=== PATIENT | female | born 1960 | race Caucasian/White ===

== ENCOUNTER 2017-03-13 09:26 | Emergency (ER) | payer OTHER ==
[2017-03-13] MEDS ORDERED: SODIUM CHLORIDE 0.9% 500 ML IV ONE (09:37)
--- NOTE | 2017-03-13 09:50 | ED ---
General Adult HPI - General Chief complaint: Seizure Stated complaint: Seizure Time Seen by Provider: 03/13/17 09:26 Source: EMS, RN notes reviewed Mode of arrival: EMS Limitations: altered mental status - History of Present Illness Initial comments: This is a 56-year-old female presents to the emergency department from [facility] with a history of seizures. Patient normally gets Her at 7:00 this morning she did not she started seizing at 7:30 no intervention was taken place until he called EMS at which point in time they gave some Versed according to EMS she had 8-9 seizures but never coming back to her baseline. After 2.5 of Versed the patient's seizure stopped and she is becoming more and more alert and oriented. Currently patient knows her name and is able to follow simple commands. There is no other history of any problems with this patient given TMS or to us via the phone call from the [facility]. Patient is unable to give us any history. - Related Data Home Medications Medication Instructions Recorded Confirmed Aspirin 325 mg PO HS 05/21/16 03/13/17 Levothyroxine Sodium [Synthroid] 100 mcg PO DAILY 05/21/16 03/13/17 Magnesium Oxide [Mag-Ox] 400 mg PO BID 05/21/16 03/13/17 Thiamine [Vitamin B-1] 100 mg PO HS 05/21/16 03/13/17 Verapamil HCl [Verapamil ER] 120 mg PO DAILY 06/17/16 03/13/17 Acetaminophen Tab [Tylenol Tab] 650 mg PO Q4H PRN 03/13/17 03/13/17 Bisacodyl 10 mg RECTAL DAILY PRN 03/13/17 03/13/17 Citalopram Hydrobromide [CeleXA] 40 mg PO DAILY 03/13/17 03/13/17 Nystatin 100,000Unit/gm Cream 1 applic TOPICAL BID PRN 03/13/17 03/13/17 [Mycostatin Cream] OLANZapine [ZyPREXA] 20 mg PO HS 03/13/17 03/13/17 Ranitidine HCl [Zantac] 150 mg PO BID 03/13/17 03/13/17 Previous Rx's Medication Instructions Recorded levETIRAcetam [Keppra] 500 mg PO BID #60 tab 06/18/16 Allergies Allergy/AdvReac Type Severity Reaction Status Date / Time No Known Allergies Allergy Verified 03/13/17 09:44 Review of Systems ROS Statement: Those systems with pertinent positive or pertinent negative responses have been documented in the HPI. ROS Other: All systems not noted in ROS Statement are negative. 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 Patient is nontoxic and well- hydrated and is in no acute distress. ENT: Neck is soft and supple. No significant lymphadenopathy is noted. Oropharynx is clear. Moist mucous membranes. Neck has full range of motion without eliciting any pain. EYES: The sclera were anicteric and conjunctiva were pink and moist. Extraocular movements were intact and pupils were equal round and reactive to light. Eyelids were unremarkable. PULMONARY: Unlabored respirations. Good breath sounds bilaterally. No audible rales rhonchi or wheezing was noted. CARDIOVASCULAR: There is a regular rate and rhythm without any murmurs gallops or rubs. ABDOMEN: Soft and nontender with normal bowel sounds. No palpable organomegaly was noted. There is no palpable pulsatile mass. SKIN: Skin is clear with no lesions or rashes and otherwise unremarkable. NEUROLOGIC: Patient is alert and oriented 1 Cranial nerves II through XII are grossly intact. MUSCULOSKELETAL: Normal extremities with adequate strength and full range of motion. No lower extremity swelling or edema. No calf tenderness. LYMPHATICS: No significant lymphadenopathy is noted Limitations: altered mental status Course Vital Signs 03/13/17 03/13/17 09:30 10:40 Temperature 98.6 F Pulse Rate 89 83 Respiratory 18 20 Rate Blood Pressure 121/68 140/70 O2 Sat by Pulse 91 L 91 L Oximetry Medical Decision Making - Medical Decision Making EKG shows a normal sinus rhythm at 97 bpm NC interval is 146 QRS is 84 Q-T intervals 354 QTC is 449. Patient's EKG shows no ST segment elevation or depression or T-wave abnormalities Patient has been seizure-free in the emergency department. And she is back to her baseline at this time. Since they did not give her her Keppra at this nursing facility at 7:00 this morning psychiatric for thousand milligrams of Keppra here. Patient is at her neurologic baseline is answering questions normally. - Lab Data Result diagrams: 03/13/17 10:30 03/13/17 10:00 Lab Results 03/13/17 03/13/17 03/13/17 Range/Units 09:32 10:00 10:00 WBC (3.8-10.6) k/uL RBC (3.80-5.40) m/uL Hgb (11.4-16.0) gm/dL Hct (34.0-46.0) % MCV (80.0-100.0) fL MCH (25.0-35.0) pg MCHC (31.0-37.0) g/dL RDW (11.5-15.5) % Plt Count (150-450) k/uL Neutrophils % % Lymphocytes % % Monocytes % % Eosinophils % % Basophils % % Neutrophils # (1.3-7.7) k/uL Lymphocytes # (1.0-4.8) k/uL Monocytes # (0-1.0) k/uL Eosinophils # (0-0.7) k/uL Basophils # (0-0.2) k/uL PT (9.0-12.0) sec INR (<1.1) APTT (22.0-30.0) sec Sodium 143 (137-145) mmol/L Potassium 4.2 (3.5-5.1) mmol/L Chloride 107 (98-107) mmol/L Carbon Dioxide 17 L (22-30) mmol/L Anion Gap 19 mmol/L BUN 9 (7-17) mg/dL Creatinine 0.82 (0.52-1.04) mg/dL Est GFR (MDRD) Af Amer >60 (>60 ml/min/1.73 sqM) Est GFR (MDRD) Non-Af >60 (>60 ml/min/1.73 sqM) Glucose 104 H (74-99) mg/dL POC Glucose (mg/dL) 112 H (75-99) mg/dL POC Glu Security Auditor ID Minoo Bui Calcium 9.5 (8.4-10.2) mg/dL Magnesium 2.0 (1.6-2.3) mg/dL Total Bilirubin 0.5 (0.2-1.3) mg/dL AST 20 (14-36) U/L ALT 19 (9-52) U/L Alkaline Phosphatase 83 (38-126) U/L Ammonia (<30) umol/L Total Creatine Kinase 50 (30-135) U/L CK-MB (CK-2) 0.6 (0.0-2.4) ng/mL CK-MB (CK-2) Rel Index 1.2 Troponin I <0.012 (0.000-0.034) ng/mL Total Protein 7.1 (6.3-8.2) g/dL Albumin 4.1 (3.5-5.0) g/dL Urine Color Urine Appearance (Clear) Urine pH (5.0-8.0) Ur Specific [place] (1.001-1.035) Urine Protein (Negative) Urine Glucose (UA) (Negative) Urine Ketones (Negative) Urine Blood (Negative) Urine Nitrite (Negative) Urine Bilirubin (Negative) Urine Urobilinogen (<2.0) mg/dL Ur Leukocyte Esterase (Negative) Urine Opiates Screen (NotDetected) Ur Oxycodone Screen (NotDetected) Urine Methadone Screen (NotDetected) Ur Propoxyphene Screen (NotDetected) Ur Barbiturates Screen (NotDetected) U Tricyclic Antidepress (NotDetected) Ur Phencyclidine Scrn (NotDetected) Ur Amphetamines Screen (NotDetected) U Methamphetamines Scrn (NotDetected) U Benzodiazepines Scrn (NotDetected) Urine Cocaine Screen (NotDetected) U Marijuana (THC) Screen (NotDetected) 03/13/17 03/13/17 03/13/17 Range/Units 10:00 10:30 10:30 WBC 11.0 H (3.8-10.6) k/uL RBC 5.04 (3.80-5.40) m/uL Hgb 15.2 (11.4-16.0) gm/dL Hct 46.2 H (34.0-46.0) % MCV 91.7 (80.0-100.0) fL MCH 30.3 (25.0-35.0) pg MCHC 33.0 (31.0-37.0) g/dL RDW 13.0 (11.5-15.5) % Plt Count 191 (150-450) k/uL Neutrophils % 88 % Lymphocytes % 7 % Monocytes % 4 % Eosinophils % 0 % Basophils % 0 % Neutrophils # 9.7 H (1.3-7.7) k/uL Lymphocytes # 0.8 L (1.0-4.8) k/uL Monocytes # 0.4 (0-1.0) k/uL Eosinophils # 0.0 (0-0.7) k/uL Basophils # 0.0 (0-0.2) k/uL PT (9.0-12.0) sec INR (<1.1) APTT (22.0-30.0) sec Sodium (137-145) mmol/L Potassium (3.5-5.1) mmol/L Chloride (98-107) mmol/L Carbon Dioxide (22-30) mmol/L Anion Gap mmol/L BUN (7-17) mg/dL Creatinine (0.52-1.04) mg/dL Est GFR (MDRD) Af Amer (>60 ml/min/1.73 sqM) Est GFR (MDRD) Non-Af (>60 ml/min/1.73 sqM) Glucose (74-99) mg/dL POC Glucose (mg/dL) (75-99) mg/dL POC Glu Security Auditor ID Calcium (8.4-10.2) mg/dL Magnesium (1.6-2.3) mg/dL Total Bilirubin (0.2-1.3) mg/dL AST (14-36) U/L ALT (9-52) U/L Alkaline Phosphatase (38-126) U/L Ammonia <9 (<30) umol/L Total Creatine Kinase (30-135) U/L CK-MB (CK-2) (0.0-2.4) ng/mL CK-MB (CK-2) Rel Index Troponin I (0.000-0.034) ng/mL Total Protein (6.3-8.2) g/dL Albumin (3.5-5.0) g/dL Urine Color Light Yellow Urine Appearance Clear (Clear) Urine pH 6.5 (5.0-8.0) Ur Specific [place] 1.007 (1.001-1.035) Urine Protein Negative (Negative) Urine Glucose (UA) Negative (Negative) Urine Ketones Negative (Negative) Urine Blood Negative (Negative) Urine Nitrite Negative (Negative) Urine Bilirubin Negative (Negative) Urine Urobilinogen <2.0 (<2.0) mg/dL Ur Leukocyte Esterase Negative (Negative) Urine Opiates Screen Not Detected (NotDetected) Ur Oxycodone Screen Not Detected (NotDetected) Urine Methadone Screen Not Detected (NotDetected) Ur Propoxyphene Screen Not Detected (NotDetected) Ur Barbiturates Screen Not Detected (NotDetected) U Tricyclic Antidepress Not Detected (NotDetected) Ur Phencyclidine Scrn Not Detected (NotDetected) Ur Amphetamines Screen Not Detected (NotDetected) U Methamphetamines Scrn Not Detected (NotDetected) U Benzodiazepines Scrn Not Detected (NotDetected) Urine Cocaine Screen Not Detected (NotDetected) U Marijuana (THC) Screen Not Detected (NotDetected) 03/13/17 Range/Units 10:30 WBC (3.8-10.6) k/uL RBC (3.80-5.40) m/uL Hgb (11.4-16.0) gm/dL Hct (34.0-46.0) % MCV (80.0-100.0) fL MCH (25.0-35.0) pg MCHC (31.0-37.0) g/dL RDW (11.5-15.5) % Plt Count (150-450) k/uL Neutrophils % % Lymphocytes % % Monocytes % % Eosinophils % % Basophils % % Neutrophils # (1.3-7.7) k/uL Lymphocytes # (1.0-4.8) k/uL Monocytes # (0-1.0) k/uL Eosinophils # (0-0.7) k/uL Basophils # (0-0.2) k/uL PT 10.1 (9.0-12.0) sec INR 1.0 (<1.1) APTT 21.3 L (22.0-30.0) sec Sodium (137-145) mmol/L Potassium (3.5-5.1) mmol/L Chloride (98-107) mmol/L Carbon Dioxide (22-30) mmol/L Anion Gap mmol/L BUN (7-17) mg/dL Creatinine (0.52-1.04) mg/dL Est GFR (MDRD) Af Amer (>60 ml/min/1.73 sqM) Est GFR (MDRD) Non-Af (>60 ml/min/1.73 sqM) Glucose (74-99) mg/dL POC Glucose (mg/dL) (75-99) mg/dL POC Glu Security Auditor ID Calcium (8.4-10.2) mg/dL Magnesium (1.6-2.3) mg/dL Total Bilirubin (0.2-1.3) mg/dL AST (14-36) U/L ALT (9-52) U/L Alkaline Phosphatase (38-126) U/L Ammonia (<30) umol/L Total Creatine Kinase (30-135) U/L CK-MB (CK-2) (0.0-2.4) ng/mL CK-MB (CK-2) Rel Index Troponin I (0.000-0.034) ng/mL Total Protein (6.3-8.2) g/dL Albumin (3.5-5.0) g/dL Urine Color Urine Appearance (Clear) Urine pH (5.0-8.0) Ur Specific [place] (1.001-1.035) Urine Protein (Negative) Urine Glucose (UA) (Negative) Urine Ketones (Negative) Urine Blood (Negative) Urine Nitrite (Negative) Urine Bilirubin (Negative) Urine Urobilinogen (<2.0) mg/dL Ur Leukocyte Esterase (Negative) Urine Opiates Screen (NotDetected) Ur Oxycodone Screen (NotDetected) Urine Methadone Screen (NotDetected) Ur Propoxyphene Screen (NotDetected) Ur Barbiturates Screen (NotDetected) U Tricyclic Antidepress (NotDetected) Ur Phencyclidine Scrn (NotDetected) Ur Amphetamines Screen (NotDetected) U Methamphetamines Scrn (NotDetected) U Benzodiazepines Scrn (NotDetected) Urine Cocaine Screen (NotDetected) U Marijuana (THC) Screen (NotDetected) Disposition Clinical Impression: Generalized seizure Disposition: HOME SELF-CARE Condition: Good Instructions: Recurrent Seizures in Adults (ED) Referrals: Matt Lebron MD [Primary Care Provider] - 1-2 days Time of Disposition: 11:31
[2017-03-13 09:52] LABS: Glucose,Whole Blood 112 mg/dL (75-99)
[2017-03-13 10:17] LABS: Appearance,Urine Clear (Clear); Bilirubin,Urine Negative (Negative); Glucose,Urine (UA) Negative (Negative); Ketones,Urine Negative (Negative); Leukocyte Esterase,Urine Negative (Negative); Nitrite,Urine Negative (Negative); PH, Urine 6.5 (5.0-8.0); Protein,Urine Negative (Negative); Specific Gravity,Urine 1.007 (1.001-1.035); UA Billing (MACRO vs. MICRO) CHEM; Urobilinogen,Urine <2.0 mg/dL (<2.0)
[2017-03-13 10:27] LABS: ALT 19 U/L (9-52); AST 20 U/L (14-36); Alkaline Phosphatase 83 U/L (38-126); Anion Gap 19 mmol/L; Blood Urea Nitrogen 9 mg/dL (7-17); Calcium 9.5 mg/dL (8.4-10.2); Carbon Dioxide 17 mmol/L (22-30); Chloride 107 mmol/L (98-107); Glucose 104 mg/dL (74-99); Non-African American GFR(MDRD) >60 (>60 ml/min/1.73 sqM); Potassium 4.2 mmol/L (3.5-5.1); Sodium 143 mmol/L (137-145); Total Bilirubin 0.5 mg/dL (0.2-1.3); Total Protein 7.1 g/dL (6.3-8.2)
--- NOTE | 2017-03-13 10:30 | CT ---
EXAMINATION TYPE: CT brain wo con DATE OF EXAM: 03/13/2017 COMPARISON: 06/17/2016 INDICATION: seizure, confusion, GREGORY DLP: 874 mGycm, Automated exposure control for dose reduction was used. CONTRAST: None CT of the brain is performed utilizing 3 mm thick sections through the posterior fossa and 3 mm thick sections through the remaining calvarium. Study is performed within 24 hours of arrival to the hosp [facility]. No abnormal hyperdensity is present to suggest an acute intracranial hemorrhage. No mass lesion is evident. No acute infarcts are evident. Periventricular white matter hypodensity is present, likely on the bas is of chronic white matter ischemic changes. Ventricles and sulci are slightly prominent for the patient age. Extra-axial spaces slight prominence . There appears to be patent cavum septum lucidum, normal variant. Paranasal sinuses and mastoid air cells within the [id number] are clear. IMPRESSIONS: 1. Chronic appearing periventricular white matter ischemic changes with mild age-related atrophy.
--- NOTE | 2017-03-13 10:33 | XR ---
EXAMINATION TYPE: XR chest 1V portable DATE OF EXAM: 03/13/2017 HISTORY: Shortness of breath. COMPARISON: 06/17/2016 TECHNIQUE: Single view of the chest is submitted. FINDINGS: Demonstrated are scattered senescent parenchymal change. There is no evidence for focal infiltrate. The heart is not enlarged. Pulmonary venous congestion without overt failure. Hilar and mediastinal structures are within normal limits. Degenerative changes are seen of the dorsal spine. Chronic deformity of several left-sided ribs. IMPRESSION: 1. Pulmonary venous congestion without infiltrate or overt failure.
[2017-03-13 10:48] LABS: Basophils % (A) 0 %; CH 30.9; CHCM 33.8; Eosinophils % (A) 0 %; HCT 46.2 % (34.0-46.0); HDW 2.33; HGB 15.2 gm/dL (11.4-16.0); Luc # (Auto) 0.09; Luc % (Auto) 1; Lymphocytes # (A) 0.8 k/uL (1.0-4.8); Lymphocytes % (A) 7 %; MCH 30.3 pg (25.0-35.0); MCV 91.7 fL (80.0-100.0); Monocytes # (A) 0.4 k/uL (0-1.0); Monocytes % (A) 4 %; Neutrophils # (A) 9.7 k/uL (1.3-7.7); Neutrophils % (A) 88 %; RBC 5.04 m/uL (3.80-5.40)
[2017-03-13 11:04] LABS: Creatine Kinase 50 U/L (30-135)
[2017-03-13 11:08] LABS: Prothrombin Time 10.1 sec (9.0-12.0)
[2017-03-13 11:14] LABS: Partial Thromboplastin Time 21.3 sec (22.0-30.0)
[2017-03-13 11:16] LABS: Creatine Kinase MB 0.6 ng/mL (0.0-2.4); Troponin I <0.012 ng/mL (0.000-0.034)
[2017-03-13 11:26] VITALS: RESP 20
[2017-03-13] MEDS ORDERED: levETIRAcetam 500 MG TAB PO STA ×2 (11:26→11:30)
[2017-03-13 12:11] VITALS: BP 130/93; PULSE 94; TEMP 98.9
== END 2017-03-13 12:12 | disposition home or self-care (01) ==
LOC: EC 09:26 → SUPCPDRO 09:26 → EC 12:12
DX: G40.409 Other generalized epilepsy and epileptic syndromes, not intractable, without status epilepticus (principal); R41.82 Altered mental status, unspecified; I10 Essential (primary) hypertension; E03.9 Hypothyroidism, unspecified; F32.9 Major depressive disorder, single episode, unspecified; Z87.891 Personal history of nicotine dependence; Z79.82 Long term (current) use of aspirin; Z79.899 Other long term (current) drug therapy
CPT/HCPCS: 36415; 70450; 71010; 80053; 80177; 80306; 81003; 82140; 82550; 82553; 83735; 84484; 85025; 85610; 85730; 93005; 96360; 96361; 99285

== ENCOUNTER 2019-04-25 10:20 | Day surgery (SDC) | payer OTHER ==
[2019-04-20 14:17] VITALS: BMI 29.6
[~2019-04-25 10:20] MED LIST: LACTATED RINGERS 1,000 ML IV SCH
[2019-04-25 10:27] VITALS: TEMP 96.5
--- NOTE | 2019-04-25 11:35 | P.PCN ---
Date of Procedure: 04/25/19 Procedure(s) Performed: Preoperative diagnosis: Rule out neurodegenerative disease Post operative diagnoses: Rule out neurodegenerative disease Anesthesia local infiltration with lidocaine 1% 2 mL. Condition: stable Complication: none. Description of the procedure procedure risk and benefits discussed with the patient and family, consent signed. Patient was taken to the procedure area placed in left lateral position. Local infiltration of the skin and subcutaneous tissue with lidocaine 1%. A 20-gauge Quincke-type needle advanced slowly at L4- 5 interlaminar space. CSF was collected. A total of 16 ML of clear cerebrospinal fluid collected in 4 tubes. Then, the needle was removed and a Band-Aid applied and patient tolerated the procedure well without any complications.
[2019-04-25] MEDS ORDERED: IV FLUID CONTINUATION 1,000 ML IV ONE ×2 (11:44)
[2019-04-25 13:26] VITALS: RESP 20
[2019-04-25 13:40] VITALS: BP 159/89; PULSE 63
[2019-04-25 14:43] LABS: Glucose,CSF 52 mg/dL (40-70); Total Protein,CSF 52 mg/dL (12-60)
[2019-04-25 14:57] LABS: T4, Free (Free Thyroxine) 1.42 ng/dL (0.78-2.19)
[2019-04-25 16:04] LABS: Appearance,CSF Clear; CSF Tube Number 3; CSF Tube Volume 4
[2019-04-25 16:05] LABS: Nucleated Cells, CSF 1 u/L (0-5); Red Blood Cell,CSF 8 u/L (0-10)
[2019-04-25 19:42] LABS: Rheumatoid Factor 6 IU/mL (0-15)
[2019-04-25 21:59] LABS: Anti-Smith Ab Interp NEGATIVE (NEGATIVE); DNA Double-Stranded NEGATIVE (NEGATIVE)
[2019-04-26 11:15] LABS: Lyme IgG/IgM 0.09 Index
[2019-04-26 11:22] LABS: APTT 36 Sec(s) (<43); Dilute Russell Viper Venom 39 Sec(s) (<44)
[2019-04-26 11:24] LABS: VDRL, Qualitative CSF Nonreactive (Nonreactive)
[2019-04-26 15:08] LABS: IgG - CSF 2.5 mg/dL (0.0 - 3.4); IgG/Albumin Index (CSF) 0.43 (0.00 - 0.77); Immunoglobulin G 870 mg/dL (700 - 1600)
== END 2019-04-25 13:50 ==
LOC: ORPAIN 10:20
PROVIDERS: ATTEND Anesthesiology
DX: R26.2 Difficulty in walking, not elsewhere classified (principal); R94.02 Abnormal brain scan
CPT/HCPCS: 62270; 82040; 82042; 82784; 82945; 83873; 83916; 84157; 84439; 84443; 84450; 84460; 85613; 85730; 86038; 86225; 86235; 86431; 86592; 86618; 86780; 87801; 88108; 89050

== ENCOUNTER 2019-06-02 09:23 | Day surgery (SDC) | payer OTHER ==
[2019-06-01 11:34] VITALS: BMI 27.6
[2019-06-02 09:36] VITALS: TEMP 96.2
[2019-06-02] MEDS ORDERED: LACTATED RINGERS 1,000 ML IV ONE (10:14)
[2019-06-02] MEDS ORDERED: PROPOFOL 10 MG/ML 20 ML VIAL IV ONE (10:15)
[2019-06-02] MEDS ORDERED: LIDOCAINE 1% INJ 10MG/ML (20 ML MDV) ONE (10:15)
--- NOTE | 2019-06-02 11:04 | P.PCN ---
Date of Procedure: 06/02/19 Description of Procedure: BRIEF HISTORY: Patient is a 59-year-old pleasant female scheduled for an elective colonoscopy as a part of evaluation of rectal bleeding. Patient was seen in the office for reports of rectal bleeding and a rectal wall which. PROCEDURE PERFORMED: Colonoscopy with biopsy. PREOPERATIVE DIAGNOSIS: Hematochezia, rectal bleeding. ESTIMATED BLOOD LOSS: Minimal. IV sedation per Anesthesia. PROCEDURE: After informed consent was obtained, the patient, was brought into the endoscopy unit. IV sedation was administered by Anesthesia under continuous monitoring. Digital rectal examination was normal. Initially the Olympus CF-190 flexible video colonoscope was then inserted in the rectum, gradually advanced into the cecum without any difficulty. Careful examination was performed as the scope was gradually being withdrawn. Ileocecal valve and the appendiceal orifice were visualized and appeared normal. The terminal ileum was intubated and appeared normal. Prep was excellent. Mucosa of the cecum, ascending colon, transverse colon, descending colon, sigmoid colon, and rectum appeared normal. Retroflexion was performed in the rectum and no lesions were seen, mild internal hemorrhoids. The patient tolerated the procedure well. IMPRESSION: Normal-appearing colon from rectum to cecum, and normal terminal ileum except for one focal area of erythema 10 cm from the anal verge suggestive of colitis or resolving colitis of unknown etiology with biopsies taken. Mild internal hemorrhoids. RECOMMENDATIONS: Findings of this examination were discussed with the patient and her accompanying caregiver. We pathology from biopsies. Follow up with gastroenterology in July as previously scheduled. Anticipate repeat colonoscopy for screening or sooner pending pathology. Further recommendations pending findings from biopsies.
[2019-06-02 11:09] VITALS: BP 139/77; PULSE 57; RESP 16
== END 2019-06-02 11:47 | disposition home or self-care (01) ==
LOC: ORWHC2ENDO 09:23
PROVIDERS: ATTEND Internal Medicine
DX: K63.3 Ulcer of intestine (principal); K64.8 Other hemorrhoids; Z87.891 Personal history of nicotine dependence; G31.2 Degeneration of nervous system due to alcohol; I08.1 Rheumatic disorders of both mitral and tricuspid valves; I11.0 Hypertensive heart disease with heart failure; I51.7 Cardiomegaly; I50.9 Heart failure, unspecified; E78.5 Hyperlipidemia, unspecified; E07.9 Disorder of thyroid, unspecified; R32 Unspecified urinary incontinence; Z86.73 Personal history of transient ischemic attack (TIA), and cerebral infarction without residual deficits; R56.9 Unspecified convulsions; F10.27 Alcohol dependence with alcohol-induced persisting dementia; Z79.82 Long term (current) use of aspirin; Z79.890 Hormone replacement therapy; Z79.899 Other long term (current) drug therapy
CPT/HCPCS: 88305; 45380; J2001; J2704

== ENCOUNTER 2020-05-12 13:54 | Inpatient (IN) | payer OTHER ==
[2020-05-12] MEDS ORDERED: SODIUM CHLORIDE 0.9% 500 ML 500 ML IV STA (14:10)
--- NOTE | 2020-05-12 14:49 | ED ---
GI Bleed HPI - General Chief complaint: GI Bleed Stated complaint: GI Bleed Time Seen by Provider: 05/12/20 14:10 Source: EMS Mode of arrival: EMS Limitations: no limitations - History of Present Illness Initial comments: 59-year-old feel present for low hemoglobin concern for GI bleed. Patient states she lives at a sister living facility she states that she will was told after lab sister that she had a low hemoglobin. Staff there states the patient has had bright red blood per rectum as well as noted rectal prolapse. Given that her hemoglobin was low their concern for GI bleed. Patient said she is no bowel pain she denies any chest pain shortness of breath palpitations. Patient states that she had had some chills. She denies any nausea vomiting or noting any diarrhea. Patient denies fevers. Patient facility did not express any additional concerns upon arrival patient appears well and nontoxic in no acute distress her blood pressure is stable and her heart rate is within normal limits. Denies anticoagulation therapy aside from daily ASA. - Related Data Home Medications Medication Instructions Recorded Confirmed Levothyroxine Sodium [Synthroid] 100 mcg PO QAM 05/21/16 05/12/20 Acetaminophen Tab [Tylenol Tab] 650 mg PO Q4H PRN 03/13/17 05/12/20 bisacodyL [Bisacodyl] 10 mg RECTAL DAILY PRN 03/13/17 05/12/20 LORazepam [Ativan] 0.5 mg PO BID 04/20/19 05/12/20 Sertraline HCl [Zoloft] 150 mg PO DAILY 04/20/19 05/12/20 Atorvastatin [Lipitor] 40 mg PO HS 05/11/20 05/12/20 Hydrocortisone Suppository 1 supp RECTAL DAILY PRN 05/11/20 05/12/20 [Anusol-Hc] Lansoprazole [Prevacid] 15 mg PO QAM 05/11/20 05/12/20 Loperamide [Imodium] 2 mg PO QID PRN 05/11/20 05/12/20 OLANZapine [ZyPREXA] 2.5 mg PO HS 05/11/20 05/12/20 Polyethylene Glycol 3350 [Clearlax] 17 gram PO DAILY 05/11/20 05/12/20 lisinopriL [Zestril] 5 mg PO HS 05/11/20 05/12/20 Aspirin EC [Ecotrin Low Dose] 81 mg PO HS 05/12/20 05/12/20 Fiber Powder 20 ml PO BID 05/12/20 05/12/20 levETIRAcetam [Keppra] 750 mg PO BID@0700,1600 05/12/20 05/12/20 Allergies Allergy/AdvReac Type Severity Reaction Status Date / Time No Known Allergies Allergy Verified 05/12/20 14:43 Review of Systems ROS Statement: Those systems with pertinent positive or pertinent negative responses have been documented in the HPI. ROS Other: All systems not noted in ROS Statement are negative. Past Medical History Past Medical History: CVA/TIA, Dementia, Hypertension, Seizure Disorder Additional Past Medical History / Comment(s): RECTAL PROLAPSE. Uses w/c, able to stand to transfer, incontinent,alcohol induced dementia, CVA without residual, last seizure unknown, UTI hypothyroidism, History of Any Multi-Drug Resistant Organisms: Unobtainable Past Surgical History: Unable to Obtain Additional Past Surgical History / Comment(s): PAIN CLINIC PROCEDURE -04/25/19. UNABLE TO OBTAIN PAST SURGICAL HX Past Anesthesia/Blood Transfusion Reactions: Unable to Obtain Additional Past Anesthesia/Blood Transfusion Reaction / Comment(s): unknown anesthesia hx Past Psychological History: Anxiety, Depression Smoking Status: Never smoker Past Alcohol Use History: None Reported, Abuse Past Drug Use History: None Reported - Past Family History Father Family Medical History: Unable to Obtain Mother Family Medical History: Unable to Obtain General Exam - General Exam Comments Initial Comments: General: The patient is awake and alert, in no distress Eye: +3 mm pupils are equal, round and reactive to light, extra-ocular movements are intact. No nystagmus. There is normal conjunctiva bilaterally. No signs of icterus. Ears, nose, mouth and throat: There are moist mucous membranes and no oral lesions. Neck: The neck is supple, there is no tenderness or JVD. Cardiovascular: There is a regular rate and rhythm. No murmur, rub or gallop is appreciated. Respiratory: Lungs are clear to auscultation, respirations are non-labored, breath sounds are equal. No wheezes, stridor, rales, or rhonchi. Gastrointestinal: Soft, non-distended, non-tender abdomen without masses or organomegaly noted. There is no rebound or guarding present. Rectal: no obvious prolapse however patient not bearing down, there is flecks of bright ja blood on underwear, there is no blood grossly per rectum on LOLA. Musculoskeletal: Normal ROM, no tenderness. Strength 5/5. Sensation intact. Pulses equal bilaterally 2+. Neurological: A&O x 3. CN II-XII intact grossly, There are no obvious motor or sensory deficits. Coordination appears grossly intact. Speech is normal. Skin: Skin is warm and dry and no rashes or lesions are noted. Psychiatric: Cooperative Limitations: no limitations Course Vital Signs 05/12/20 05/12/20 05/12/20 14:05 14:10 15:10 Temperature 97.1 F L Pulse Rate 75 70 Respiratory 18 18 18 Rate Blood Pressure 137/82 130/82 O2 Sat by Pulse 99 Oximetry Medical Decision Making - Medical Decision Making 59-year-old feel present for GI bleed. Noted bright red blood per rectum at patient nursing facility. Patient has small amount of red blood in underwear small specks. Upon rectal examination there is no blood on gross exam. Patient HgB >7, discussed with attending who spoke with [facility] physician who recommended transfusion at this time. Patient will be admitted for further monitoring. Patient is agreeable to this care plan, transfusion and admission. Dr. Gomez agreeable to care plan. - Lab Data Result diagrams: 05/12/20 15:24 05/12/20 15:24 Lab Results 05/12/20 05/12/20 05/12/20 Range/Units 15:24 15:24 15:24 WBC 5.3 (3.8-10.6) k/uL RBC 3.67 L (3.80-5.40) m/uL Hgb 7.4 L (11.4-16.0) gm/dL Hct 26.3 L (34.0-46.0) % MCV 71.7 L (80.0-100.0) fL MCH 20.3 L (25.0-35.0) pg MCHC 28.3 L (31.0-37.0) g/dL RDW 17.6 H (11.5-15.5) % Plt Count 263 (150-450) k/uL Neutrophils % 52 % Lymphocytes % 34 % Monocytes % 9 % Eosinophils % 1 % Basophils % 1 % Neutrophils # 2.8 (1.3-7.7) k/uL Lymphocytes # 1.8 (1.0-4.8) k/uL Monocytes # 0.5 (0-1.0) k/uL Eosinophils # 0.1 (0-0.7) k/uL Basophils # 0.0 (0-0.2) k/uL Manual Slide Review Performed Hypochromasia Marked Poikilocytosis Moderate Poikilocytosis (manual Present Anisocytosis Slight Microcytosis Moderate PT (9.0-12.0) sec INR (<1.2) APTT (22.0-30.0) sec Sodium 137 (137-145) mmol/L Potassium 4.1 (3.5-5.1) mmol/L Chloride 108 H (98-107) mmol/L Carbon Dioxide 22 (22-30) mmol/L Anion Gap 7 mmol/L BUN 8 (7-17) mg/dL Creatinine 0.62 (0.52-1.04) mg/dL Est GFR (CKD-EPI)AfAm >90 (>60 ml/min/1.73 sqM) Est GFR (CKD-EPI)NonAf >90 (>60 ml/min/1.73 sqM) Glucose 95 (74-99) mg/dL Calcium 8.8 (8.4-10.2) mg/dL Total Bilirubin 0.3 (0.2-1.3) mg/dL AST 25 (14-36) U/L ALT 11 (4-34) U/L Alkaline Phosphatase 75 (38-126) U/L Troponin I (0.000-0.034) ng/mL Total Protein 6.0 L (6.3-8.2) g/dL Albumin 3.6 (3.5-5.0) g/dL Blood Type AB Positive Blood Type Confirm Blood Type Recheck No Previous Record Bld Type Recheck Status CABO Indicated Antibody Screen NEGATIVE Crossmatch See Detail Spec Expiration Date 05/15/2020232305/12/20 05/12/20 05/12/20 Range/Units 15:45 15:47 15:47 WBC (3.8-10.6) k/uL RBC (3.80-5.40) m/uL Hgb (11.4-16.0) gm/dL Hct (34.0-46.0) % MCV (80.0-100.0) fL MCH (25.0-35.0) pg MCHC (31.0-37.0) g/dL RDW (11.5-15.5) % Plt Count (150-450) k/uL Neutrophils % % Lymphocytes % % Monocytes % % Eosinophils % % Basophils % % Neutrophils # (1.3-7.7) k/uL Lymphocytes # (1.0-4.8) k/uL Monocytes # (0-1.0) k/uL Eosinophils # (0-0.7) k/uL Basophils # (0-0.2) k/uL Manual Slide Review Hypochromasia Poikilocytosis Poikilocytosis (manual Anisocytosis Microcytosis PT 9.4 (9.0-12.0) sec INR 0.9 (<1.2) APTT 19.2 L (22.0-30.0) sec Sodium (137-145) mmol/L Potassium (3.5-5.1) mmol/L Chloride (98-107) mmol/L Carbon Dioxide (22-30) mmol/L Anion Gap mmol/L BUN (7-17) mg/dL Creatinine (0.52-1.04) mg/dL Est GFR (CKD-EPI)AfAm (>60 ml/min/1.73 sqM) Est GFR (CKD-EPI)NonAf (>60 ml/min/1.73 sqM) Glucose (74-99) mg/dL Calcium (8.4-10.2) mg/dL Total Bilirubin (0.2-1.3) mg/dL AST (14-36) U/L ALT (4-34) U/L Alkaline Phosphatase (38-126) U/L Troponin I <0.012 (0.000-0.034) ng/mL Total Protein (6.3-8.2) g/dL Albumin (3.5-5.0) g/dL Blood Type Blood Type Confirm AB Positive Blood Type Recheck Bld Type Recheck Status Antibody Screen Crossmatch Spec Expiration Date Disposition Clinical Impression: GI (gastrointestinal bleed), Anemia Disposition: ADMITTED IP TO THIS [facility] Condition: Stable Is patient prescribed a controlled substance at d/c from ED?: No Referrals: Matt Lebron MD [Primary Care Provider] - 1-2 days Time of Disposition: 16:44 Decision to Admit Reason: Admit from EC Decision Date: 05/12/20 Decision Time: 16:44
[2020-05-12 15:39] LABS: Anisocytosis Slight; Basophils % (A) 1 %; Eosinophils # (A) 0.1 k/uL (0-0.7); Eosinophils % (A) 1 %; HCT 26.3 % (34.0-46.0); HGB 7.4 gm/dL (11.4-16.0); Hypochromasia Marked; Lymphocytes # (A) 1.8 k/uL (1.0-4.8); Lymphocytes % (A) 34 %; MCH 20.3 pg (25.0-35.0); MCHC 28.3 g/dL (31.0-37.0); MCV 71.7 fL (80.0-100.0); Mean Platelet Volume 8.3; Microcytosis Moderate; Monocytes # (A) 0.5 k/uL (0-1.0); Monocytes % (A) 9 %; Neutrophils # (A) 2.8 k/uL (1.3-7.7); Neutrophils % (A) 52 %; Platelet Count 263 k/uL (150-450); Poikilocytosis Moderate; RBC 3.67 m/uL (3.80-5.40); RDW 17.6 % (11.5-15.5); WBC 5.3 k/uL (3.8-10.6)
[2020-05-12 15:53] LABS: ALT 11 U/L (4-34); AST 25 U/L (14-36); African American GFR (CKD) >90 (>60 ml/min/1.73 sqM); Albumin 3.6 g/dL (3.5-5.0); Alkaline Phosphatase 75 U/L (38-126); Anion Gap 7 mmol/L; Blood Urea Nitrogen 8 mg/dL (7-17); Calcium 8.8 mg/dL (8.4-10.2); Carbon Dioxide 22 mmol/L (22-30); Chloride 108 mmol/L (98-107); Glucose 95 mg/dL (74-99); Non-African American GFR(CKD) >90 (>60 ml/min/1.73 sqM); Potassium 4.1 mmol/L (3.5-5.1); Sodium 137 mmol/L (137-145); Total Bilirubin 0.3 mg/dL (0.2-1.3)
[2020-05-12 16:08] LABS: Poikilocytosis (M) Present
[2020-05-12 16:11] LABS: INR 0.9 (<1.2); Prothrombin Time 9.4 sec (9.0-12.0)
[2020-05-12 16:25] LABS: Partial Thromboplastin Time 19.2 sec (22.0-30.0)
[2020-05-12] MEDS ORDERED: NALOXONE 0.4 MG/ML 1 ML VIAL IV PRN (16:45)
[2020-05-12] MEDS ORDERED: ACETAMINOPHEN TAB 325 MG TAB PO PRN (18:36)
[2020-05-12] MEDS ORDERED: HYDROCORTISONE SUPPOSITORY 25 MG SUPP RECTAL PRN (18:36)
[2020-05-12] MEDS ORDERED: LOPERAMIDE 2 MG CAP PO PRN (18:36)
[2020-05-12] MEDS ORDERED: bisacodyL 10 MG SUPP RECTAL PRN (18:36)
[2020-05-12] MEDS: OLANZapine 2.5 MG TAB PO SCH (20:54)
[2020-05-12] MEDS: LORazepam 0.5 MG TAB PO SCH (20:54)
[2020-05-12] MEDS: lisinopriL 5 MG TAB PO SCH (20:54)
[2020-05-12] MEDS: ATORVASTATIN 40 MG TAB PO SCH (20:54)
[2020-05-12] MEDS: FIBER PO SCH (20:55)
[2020-05-12] MEDS ORDERED: TEMAZEPAM 15 MG CAP PO PRN (23:28)
[2020-05-12] MEDS ORDERED: HYDROcodone/APAP 5-325MG 1 EACH TAB PO PRN (23:28)
[2020-05-12] MEDS ORDERED: ALPRAZolam 0.25 MG TAB PO PRN (23:28)
--- NOTE | 2020-05-13 04:41 | HP ---
HISTORY AND PHYSICAL CHIEF COMPLAINT: Anemia. Possibly GI bleed. HISTORY OF PRESENT ILLNESS: This 59-year-old woman with a past history of CVA, TIA, dementia, hypertension, seizure disorder, rectal prolapse, anxiety and depression is being followed by Dr. Lebron in the outpatient setting, living in [facility] because of seizures. The patient apparently had slated surgery for rectal prolapse by Dr. Mims, but the patient was found to have anemia with hemoglobin 6.4, and GI bleed was suspected. The patient was sent to [facility] for further evaluation and treatment. Hemoglobin on admission was found to be 7.4. The patient is complaining of tiredness, weakness and a unit of transfusion being arranged for symptomatic anemia at this time. There is no history of fever, rigors, chills. No headache, loss of consciousness, seizures. PAST HISTORY: CVA, TIA, dementia, hypertension, seizure disorder, rectal prolapse, anxiety, depression. MEDICATIONS: Prior to admission home medications were Zestril, Keppra, bisacodyl, Zoloft, Zyprexa, Imodium, Synthroid, Pravastatin, Ativan, Anusol, Lipitor, Ecotrin, Tylenol. Doses are reviewed. ALLERGIES: None. FAMILY HISTORY: No history of heart disease or strokes in family. SOCIAL HISTORY: Previous history of smoking. Occasional alcohol intake. REVIEW OF SYSTEMS: ENT: No diminished vision or hearing. CARDIOVASCULAR: No angina or palpitations. RESPIRATORY: No cough or hemoptysis. GI: As mentioned earlier. : No dysuria. NERVOUS SYSTEM: No numbness or weakness. ALLERGY/IMMUNOLOGY: No asthma or hayfever. MUSCULOSKELETAL: As mentioned earlier. HEMATOLOGY/ONCOLOGY: As mentioned earlier. ENDOCRINE: No history of diabetes or hypothyroidism. CONSTITUTIONAL: As mentioned earlier. DERMATOLOGY: Negative. RHEUMATOLOGY: Negative. PSYCHIATRY: As mentioned earlier. PHYSICAL EXAMINATION: GENERAL: Alert oriented x3. VITAL SIGNS: Pulse 70, blood pressure is 161/89, respiration 20, temperature is normal. Pulse ox 100 percent on room air. HEENT: Conjunctivae is pale. Oral mucosa is pale. NECK: No jugular venous distention. No carotid bruits. No lymph node enlargement. RESPIRATORY: Breath sounds diminished at the bases. No rhonchi, no crackles. HEART: S1 and S2, muffled. No S3 or S4. ABDOMEN: Soft, no tenderness. No masses palpable. EXTREMITIES: No edema, no swelling. NERVOUS: Higher functions as mentioned earlier. Moves all four limbs. No focal motor or sensory deficits. LYMPHATICS: No lymph nodes in the neck or axilla. SKIN: No rash. JOINTS: No active deforming arthropathy. LABS: WBC 5.2, hemoglobin 7.4, platelets are 263. ASSESSMENT: 1. Acute anemia, symptomatic anemia, possibly gastrointestinal blood loss, acute on chronic. 2. Rectal prolapse. 3. Cerebrovascular accident, transient ischemic attack. 4. Dementia. 5. Hypertension. 6. History of seizure disorder. 7. History of alcohol induced dementia. 8. History of cerebrovascular accident. 9. Anxiety depression and psychotic disorder with delusions. 10.History of EtOH abuse. 11.FULL CODE. RECOMMENDATIONS AND DISCUSSION: In this 59-year-old woman who presented with multiple complex medical issues, we will monitor the patient closely. Continue with the the current management and symptomatic treatment. Otherwise at this time I recommend to monitor hemoglobin closely and look for any acute on chronic GI bleed. One unit transfusion and Lasix. Otherwise consult surgery. There is no evidence of any chronic liver disease which can also give rise GI bleed at this time with significant history of alcohol but however we will continue to monitor. Repeat labs will be ordered. Further recommendations to follow. Will hold the Ecotrin for now. MMODL / IJN: [id number] / MTDBuddy
[2020-05-13] MEDS: LEVOTHYROXINE 100 MCG TAB PO SCH (06:08)
[2020-05-13 07:33] LABS: Anisocytosis Slight; Basophils % (A) 1 %; Eosinophils % (A) 0 %; HCT 25.5 % (34.0-46.0); HGB 7.2 gm/dL (11.4-16.0); Hypochromasia Marked; Lymphocytes # (A) 1.8 k/uL (1.0-4.8); Lymphocytes % (A) 31 %; MCH 21.3 pg (25.0-35.0); MCHC 28.2 g/dL (31.0-37.0); MCV 75.5 fL (80.0-100.0); Microcytosis Slight; Monocytes # (A) 0.5 k/uL (0-1.0); Monocytes % (A) 8 %; Neutrophils # (A) 3.4 k/uL (1.3-7.7); Neutrophils % (A) 59 %; Platelet Count 247 k/uL (150-450); Poikilocytosis Moderate; RBC 3.37 m/uL (3.80-5.40); RDW 17.7 % (11.5-15.5); WBC 5.7 k/uL (3.8-10.6)
[2020-05-13 07:44] LABS: African American GFR (CKD) >90 (>60 ml/min/1.73 sqM); Anion Gap 5 mmol/L; Blood Urea Nitrogen 6 mg/dL (7-17); Calcium 8.8 mg/dL (8.4-10.2); Carbon Dioxide 26 mmol/L (22-30); Chloride 108 mmol/L (98-107); Glucose 87 mg/dL (74-99); Non-African American GFR(CKD) >90 (>60 ml/min/1.73 sqM); Potassium 4.4 mmol/L (3.5-5.1); Sodium 139 mmol/L (137-145)
[2020-05-13] MEDS: LORazepam 0.5 MG TAB PO SCH ×2 (08:52→20:48)
[2020-05-13] MEDS: SERTRALINE 100 MG TAB PO SCH (08:52)
[2020-05-13] MEDS: polyethylene glycoL 3350 17 GM POWD.PACK PO SCH (08:53)
[2020-05-13] MEDS: PANTOPRAZOLE 40 MG TABLET PO SCH (08:53)
[2020-05-13] MEDS: FIBER PO SCH ×2 (08:54→20:49)
[2020-05-13] MEDS ORDERED: FUROSEMIDE 10 MG/ML 2 ML VIAL IV ONE (12:00)
--- NOTE | 2020-05-13 13:59 | P.GSCN ---
History of Present Illness Consult date: 05/13/20 History of present illness: CHIEF COMPLAINT: Anemia HISTORY OF PRESENT ILLNESS: The patient is a 59 year old female brought in from outside facility for anemia, Hgb less than 8.0. Patient denies any rectal bleeding. No reports of abdominal pain. Most history obtained per records as her recollection is limited. She is receiving blood at the time of my assessment. Per her facility records, patient had rectal prolapse and rectal bleeding causing initial presentation to the hospital. She had a colonoscopy 1 year ago for rectal bleeding unremarkable for polyps with the exception of questionable focal colitis. PAST MEDICAL HISTORY: See list and reviewed PAST SURGICAL HISTORY: See list and reviewed MEDICATIONS: See list and reviewed ALLERGIES: See list and reviewed SOCIAL HISTORY: See list and reviewed FAMILY HISTORY: See list and reviewed REVIEW OF ORGAN SYSTEMS: CONSTITUTIONAL: No fevers or chills. EYES: Denies any trouble with vision. No glasses. HEENT: No difficulties with hearing. No nosebleeds. RESPIRATORY: Denies pneumonia. Denies any troubles with breathing or dyspnea on exertion. CARDIOVASCULAR: Denies any chest pain, palpitations, or recent heart attacks. GASTROINTESTINAL: Past history of rectal bleeding. GENITOURINARY: Denies any blood in urine or increased urinary frequency. NEUROLOGICAL: Past stroke. Has seizure disorder MUSCULOSKELETAL: Denies any back pain, stiffness or joint arthritis. SKIN: No current skin cancer. No rash. PSYCHIATRIC: Has dementia. Has anxiety and depression. ENDOCRINE: Has thyroid disorders. Denies any blood sugar glucose intolerance. HEME/LYMPHATIC: Denies any lumps and bumps around the neck. No recent deep venous thrombosis. ALLERGY/IMMUNOLOGY: No immunoglobulin therapy. No immune deficiencies. BREAST: Denies current breast lumps, pain or nipple discharge. PHYSICAL EXAM: VITALS: Reviewed CONSTITUTIONAL: Well developed and in no acute distress. EYES: Conjuctivae without sclera icterus. Pupils are equally round and reactive to light. Extraocular movements grossly intact. HEAD, EARS, NOSE, THROAT: Moist buccal mucosa. Head is atraumatic, normocephalic. Hears conversational speech. No nasal drainage. NECK: Supple. No JV distention. No thyroidomegaly. RESPIRATORY: Non-labored respirations and equal bilateral excursions. No gross wheezes. CARDIOVASCULAR: Regular rate and rhythm. Palpable 2+ radial pulses. ABDOMEN: Soft. Non-tender. Nondistended. LYMPH: No neck lymphadenopathy. MUSCULOSKELETAL: Nail and fingers with good capillary refill. SKIN: Warm and well perfused with good skin turgor. NEUROLOGIC: Cranial nerves II through XII grossly intact. Sensation upper and extremities intact. No focal or lateralizing signs. PSYCH: Appropriate affect. Alert and oriented to person, place and time. Displays appropriate insight. CLINCAL LABS: Reviewed, Hgb 7.4 RECORDS: previous old records reviewed colonoscopy 2018 ASSESSMENT: 1. Anemia PLAN: 1. Blood transfusions as tolerated 2. May need repeat scope for acute bleeds. Thank you for this kind consultation. Past Medical History Past Medical History: CVA/TIA, Dementia, Hypertension, Seizure Disorder Additional Past Medical History / Comment(s): RECTAL PROLAPSE. Uses w/c, able to stand to transfer, incontinent,alcohol induced dementia, CVA without residual, last seizure unknown, UTI hypothyroidism, History of Any Multi-Drug Resistant Organisms: Unobtainable Past Surgical History: Unable to Obtain Additional Past Surgical History / Comment(s): PAIN CLINIC PROCEDURE -04/25/19. UNABLE TO OBTAIN PAST SURGICAL HX Past Anesthesia/Blood Transfusion Reactions: Unable to Obtain Additional Past Anesthesia/Blood Transfusion Reaction / Comm: unknown anesthesia hx Past Psychological History: Anxiety, Depression Additional Psychological History / Comment(s): psychotic disorder with delusions Smoking Status: Never smoker Past Alcohol Use History: None Reported, Abuse Additional Past Alcohol Use History / Comment(s): Per past medical records, pt has alcohol encephalopathy/dementia. Past Drug Use History: None Reported Additional Drug Use History / Comment(s): unknown hx - Past Family History Father Family Medical History: Unable to Obtain Mother Family Medical History: Unable to Obtain Medications and Allergies Home Medications Medication Instructions Recorded Confirmed Type Levothyroxine Sodium [Synthroid] 100 mcg PO QAM 05/21/16 05/12/20 History Acetaminophen Tab [Tylenol Tab] 650 mg PO Q4H PRN 03/13/17 05/12/20 History bisacodyL [Bisacodyl] 10 mg RECTAL DAILY PRN 03/13/17 05/12/20 History LORazepam [Ativan] 0.5 mg PO BID 04/20/19 05/12/20 History Sertraline HCl [Zoloft] 150 mg PO DAILY 04/20/19 05/12/20 History Atorvastatin [Lipitor] 40 mg PO HS 05/11/20 05/12/20 History Hydrocortisone Suppository 1 supp RECTAL DAILY PRN 05/11/20 05/12/20 History [Anusol-Hc] Lansoprazole [Prevacid] 15 mg PO QAM 05/11/20 05/12/20 History Loperamide [Imodium] 2 mg PO QID PRN 05/11/20 05/12/20 History OLANZapine [ZyPREXA] 2.5 mg PO HS 05/11/20 05/12/20 History Polyethylene Glycol 3350 [Clearlax] 17 gram PO DAILY 05/11/20 05/12/20 History lisinopriL [Zestril] 5 mg PO HS 05/11/20 05/12/20 History Aspirin EC [Ecotrin Low Dose] 81 mg PO HS 05/12/20 05/12/20 History Fiber Powder 20 ml PO BID 05/12/20 05/12/20 History levETIRAcetam [Keppra] 750 mg PO BID@0700,1600 05/12/20 05/12/20 History Allergies Allergy/AdvReac Type Severity Reaction Status Date / Time No Known Allergies Allergy Verified 05/12/20 14:43 Surgical - Exam Vital Signs Temp Pulse Resp BP 97.1 F L 75 18 137/82 05/12/20 14:05 05/12/20 14:05 05/12/20 14:05 05/12/20 14:05 Results - Labs 05/13/20 06:17 05/13/20 06:17 Abnormal Lab Results - Last 24 Hours (Table) 05/12/20 05/12/20 05/12/20 Range/Units 15:24 15:24 15:24 RBC 3.67 L (3.80-5.40) m/uL Hgb 7.4 L (11.4-16.0) gm/dL Hct 26.3 L (34.0-46.0) % MCV 71.7 L (80.0-100.0) fL MCH 20.3 L (25.0-35.0) pg MCHC 28.3 L (31.0-37.0) g/dL RDW 17.6 H (11.5-15.5) % APTT (22.0-30.0) sec Chloride 108 H (98-107) mmol/L BUN (7-17) mg/dL Total Protein 6.0 L (6.3-8.2) g/dL Crossmatch See Detail 05/12/20 05/13/20 05/13/20 Range/Units 15:47 06:17 06:17 RBC 3.37 L (3.80-5.40) m/uL Hgb 7.2 L (11.4-16.0) gm/dL Hct 25.5 L (34.0-46.0) % MCV 75.5 L (80.0-100.0) fL MCH 21.3 L (25.0-35.0) pg MCHC 28.2 L (31.0-37.0) g/dL RDW 17.7 H (11.5-15.5) % APTT 19.2 L (22.0-30.0) sec Chloride 108 H (98-107) mmol/L BUN 6 L (7-17) mg/dL Total Protein (6.3-8.2) g/dL Crossmatch Diabetes panel 05/12/20 05/13/20 Range/Units 15:24 06:17 Sodium 137 139 (137-145) mmol/L Potassium 4.1 4.4 (3.5-5.1) mmol/L Chloride 108 H 108 H (98-107) mmol/L Carbon Dioxide 22 26 (22-30) mmol/L BUN 8 6 L (7-17) mg/dL Creatinine 0.62 0.57 (0.52-1.04) mg/dL Glucose 95 87 (74-99) mg/dL Calcium 8.8 8.8 (8.4-10.2) mg/dL AST 25 (14-36) U/L ALT 11 (4-34) U/L Alkaline Phosphatase 75 (38-126) U/L Total Protein 6.0 L (6.3-8.2) g/dL Albumin 3.6 (3.5-5.0) g/dL Calcium panel 05/12/20 05/13/20 Range/Units 15:24 06:17 Calcium 8.8 8.8 (8.4-10.2) mg/dL Albumin 3.6 (3.5-5.0) g/dL Pituitary panel 05/12/20 05/13/20 Range/Units 15: 06:17 Sodium 137 139 (137-145) mmol/L Potassium 4.1 4.4 (3.5-5.1) mmol/L Chloride 108 H 108 H (98-107) mmol/L Carbon Dioxide 22 26 (22-30) mmol/L BUN 8 6 L (7-17) mg/dL Creatinine 0.62 0.57 (0.52-1.04) mg/dL Glucose 95 87 (74-99) mg/dL Calcium 8.8 8.8 (8.4-10.2) mg/dL Adrenal panel 05/12/20 05/13/20 Range/Units 15:24 06:17 Sodium 137 139 (137-145) mmol/L Potassium 4.1 4.4 (3.5-5.1) mmol/L Chloride 108 H 108 H (98-107) mmol/L Carbon Dioxide 22 26 (22-30) mmol/L BUN 8 6 L (7-17) mg/dL Creatinine 0.62 0.57 (0.52-1.04) mg/dL Glucose 95 87 (74-99) mg/dL Calcium 8.8 8.8 (8.4-10.2) mg/dL Total Bilirubin 0.3 (0.2-1.3) mg/dL AST 25 (14-36) U/L ALT 11 (4-34) U/L Alkaline Phosphatase 75 (38-126) U/L Total Protein 6.0 L (6.3-8.2) g/dL Albumin 3.6 (3.5-5.0) g/dL Assessment and Plan (1) Anemia Current Visit: Yes Status: Acute Code(s): D64.9 - ANEMIA, UNSPECIFIED SNOMED Code(s): 979179682 (2) GI (gastrointestinal bleed) Current Visit: Yes Status: Acute Code(s): K92.2 - GASTROINTESTINAL HEMO RRHAGE, UNSPECIFIED SNOMED Code(s): 22517572
--- NOTE | 2020-05-13 16:29 | PN ---
PROGRESS NOTE DATE OF SERVICE: 05/13/2020 This 59-year-old woman who was admitted with anemia which is acute on chronic secondary to blood loss anemia. Had 1 unit transfusion yesterday, but currently hemoglobin is again 7.2. Surgery has seen the patient and Dr. Mims was planning outpatient surgery originally. The possibility of repeat bleeding and repeat scope is also being considered at this time. Past medical history reviewed. REVIEW OF SYSTEMS: Cardiovascular system: No angina or palpitations. Respiration as mentioned earlier. GI: mentioned earlier. no dysuria. Nervous system: No numbness or weakness. CURRENT MEDICATIONS: Reviewed and include: 1. Tylenol p.r.n. 2. [place] 5 mg q.6 p.r.n. 3. Xanax. 4. Lipitor. 5. Dulcolax. 7. Zetia. 8. Apresoline. 9. Synthroid. 10.Zestril. 11.Imodium. 12.Ativan. 13.Narcan. 14.Zyprexa. 15.Protonix. 16.MiraLAX. 17.Zoloft. 18.Restoril. 19.Doses are reviewed. PHYSICAL EXAM: Patient is alert and oriented x3. Pulse 72. Blood pressure 100/60, respirations 18, temperature 97.9, pulse ox 98% on room air. HEENT: Conjunctivae pale. Oral mucosa moist. NECK is no jugular venous distention. No carotid bruit. CARDIOVASCULAR systems: S1, S2. RESPIRATIONS: Diminished in the bases. A few scattered rhonchi. ABDOMEN: Soft. Nontender. LEGS: No edema. No swelling. NERVOUS SYSTEM: Diffusely weak. LABS: WBC 5.2, hemoglobin 7.2, MCV 75.3, sodium 139, potassium 4.4. ASSESSMENT: 1. Acute anemia possibly symptomatic anemia, possible gastrointestinal blood loss, acute on chronic. 2. Rectal prolapse history. 3. Cerebrovascular accident, transient ischemic attack. 4. Dementia. 5. Hypertension. 6. History of seizure disorder. 7. Alcohol induced dementia. 8. History of cerebrovascular accident. 9. Anxiety, depression and psychotic disorder with delusions. 10.History of ETOH abuse. 11.FULL CODE. RECOMMENDATIONS AND DISCUSSION: In this 59-year-old woman who presented with multiple complex medical issues, hemoglobin dropped again. I would recommend 1 more unit of transfusion, with Lasix 20. Monitor hemodynamic parameters closely. I would recommend surgical evaluation and monitor hemoglobin closely. If hemoglobin drops again, patient might need further workup including repeat endoscopies. Otherwise, closely follow with surgery. Resume the rest of medications. Avoid anticoagulants and antiplatelet agents. Guarded prognosis because of multiple complex medical issues. Further recommendations to follow. MMODL / IJN: [id number] / [id number]
[2020-05-13] MEDS: OLANZapine 2.5 MG TAB PO SCH (20:48)
[2020-05-13] MEDS: lisinopriL 5 MG TAB PO SCH (20:48)
[2020-05-13] MEDS: ATORVASTATIN 40 MG TAB PO SCH (20:48)
[2020-05-14 05:18] VITALS: RESP 16
[2020-05-14] MEDS: LEVOTHYROXINE 100 MCG TAB PO SCH (05:21)
[2020-05-14 07:36] LABS: Anisocytosis Slight; Basophils % (A) 1 %; Eosinophils % (A) 1 %; HCT 30.8 % (34.0-46.0); Hypochromasia Marked; Lymphocytes # (A) 1.6 k/uL (1.0-4.8); Lymphocytes % (A) 28 %; MCHC 30.3 g/dL (31.0-37.0); MCV 75.9 fL (80.0-100.0); Mean Platelet Volume 8.1; Microcytosis Moderate; Monocytes # (A) 0.4 k/uL (0-1.0); Monocytes % (A) 7 %; Neutrophils # (A) 3.5 k/uL (1.3-7.7); Neutrophils % (A) 61 %; Platelet Count 265 k/uL (150-450); Poikilocytosis Marked; RBC 4.05 m/uL (3.80-5.40); RDW 18.7 % (11.5-15.5); WBC 5.7 k/uL (3.8-10.6)
[2020-05-14 07:44] LABS: HGB 9.3 gm/dL (11.4-16.0)
[2020-05-14] MEDS: SERTRALINE 100 MG TAB PO SCH (07:46)
[2020-05-14] MEDS: LORazepam 0.5 MG TAB PO SCH (07:47)
[2020-05-14] MEDS: PANTOPRAZOLE 40 MG TABLET PO SCH (07:47)
[2020-05-14] MEDS: polyethylene glycoL 3350 17 GM POWD.PACK PO SCH (07:48)
[2020-05-14] MEDS: FIBER PO SCH (07:48)
[2020-05-14 07:58] LABS: African American GFR (CKD) >90 (>60 ml/min/1.73 sqM); Anion Gap 4 mmol/L; Blood Urea Nitrogen 7 mg/dL (7-17); Calcium 8.8 mg/dL (8.4-10.2); Carbon Dioxide 26 mmol/L (22-30); Chloride 105 mmol/L (98-107); Glucose 90 mg/dL (74-99); Non-African American GFR(CKD) >90 (>60 ml/min/1.73 sqM); Potassium 4.2 mmol/L (3.5-5.1); Sodium 135 mmol/L (137-145)
--- NOTE | 2020-05-14 11:45 | P.PN ---
Subjective Progress Note Date: 05/14/20 CHIEF COMPLAINT: Anemia HISTORY OF PRESENT ILLNESS: The patient is a 59 year old female brought in from outside facility for anemia, Hgb less than 8.0. Patient denies any rectal bleeding. No reports of abdominal pain. Most history obtained per records as her recollection is limited. Per her facility records, patient had rectal prolapse and rectal bleeding causing initial presentation to the hospital. She also is a history of dementia. She had a colonoscopy 1 year ago for rectal bleeding unremarkable for polyps with the exception of questionable focal colitis. Patient sitting up in bedside chair. Denies any abdominal pain. She had a bowel movement yesterday. She did receive 2 units of blood. Hemoglobin has gone up from 7.2-9.3. BP 88/47 PHYSICAL EXAM: VITAL SIGNS: Reviewed. GENERAL: Well-developed in no acute distress. HEENT: No sclera icterus. Extraocular movements grossly intact. Moist buccal mucosa. Head is atraumatic, normocephalic. ABDOMEN: Soft. Nondistended. Nontender. NEUROLOGIC: Alert and oriented. Cranial nerves II through XII grossly intact. ASSESSMENT: 1. Anemia with possible GI bleed 2. Rectal prolapse history PLAN: -Patient can be discharge from surgical standpoint and to return to the hospital for her procedures -She has a colonoscopy scheduled outpatient on 05/16/2020 -She has lower anterior resection already scheduled 05/17/2000 Physician Armoured Car Escort note has been reviewed by physician. Signing provider agrees with the documented findings, assessment, and plan of care. Objective - Vital Signs Vital signs: Vital Signs Temp 98.4 F 05/14/20 05:16 Pulse 66 05/14/20 05:16 Resp 16 05/14/20 05:16 BP 88/47 05/14/20 05:16 Pulse Ox 96 05/14/20 05:16 Intake & Output 05/13/20 05/14/20 05/14/20 18:59 06:59 18:59 Intake Total 310 Balance 310 Weight 71.5 kg Intake: Blood Product 310 Rc Irr As1 Unit 310 [id number] Other: Voiding Method Toilet Toilet Toilet Diaper Diaper Diaper # Voids 2 1 # Bowel Movements 1 - Labs CBC & Chem 7: 05/14/20 07:02 05/14/20 07:02 Labs: Abnormal Lab Results - Last 24 Hours (Table) 05/12/20 05/14/20 05/14/20 Range/Units 15:24 07:02 07:02 Hgb 9.3 L D (11.4-16.0) gm/dL Hct 30.8 L (34.0-46.0) % MCV 75.9 L (80.0-100.0) fL MCH 23.0 L (25.0-35.0) pg MCHC 30.3 L (31.0-37.0) g/dL RDW 18.7 H (11.5-15.5) % Sodium 135 L (137-145) mmol/L Crossmatch See Detail
[2020-05-14 12:25] VITALS: BP 109/74; PULSE 67; TEMP 98.3
--- NOTE | 2020-05-14 14:52 | P.DS ---
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 Patient will follow-up with Dr. Mims as scheduled on 05/17/2020 for colonoscopy in the outpatient setting upon discharge. Total time taken is greater than 35 minutes. History of present illness This is a 60-year-old female who was recently admitted with anemia which is acute on chronic secondary to blood loss anemia and had 1 unit of PRBCs upon admission. Patient was being closely monitored. Hemoglobin today is 9.3. Patient is scheduled to undergo colonoscopy on 05/17/2020 and will keep this appointment. Surgery also planning for surgery on status post colonoscopy as an outpatient. Currently no reports of chest pain, shortness of breath, or palpitations. Patient is afebrile. No reports of nausea or vomiting and patient is tolerating clear liquid diet. Patient will continue on clear liquid diet and will undergo colonoscopy on Thursday as an outpatient. Patient will be going to [facility] today. On exam vital signs are stable. Temp is 98.3F, pulse is 67, respirations are 16, blood pressure is 109/74, oxygen saturation is 99% on room air. Cardio S1, S2 are muffled. Respiratory system shows diminished breath sounds at the bases with no wheezing or rhonchi noted. Abdomen is soft and nontender. Nervous system shows no focal deficits. Please refer to medication reconciliation sheet for a list of medications. Patient Condition at Discharge: Stable Plan - Discharge Summary Discharge Rx Participant: No New Discharge Prescriptions: Continue Levothyroxine Sodium [Synthroid] 100 mcg PO QAM Acetaminophen Tab [Tylenol] 650 mg PO Q4H PRN PRN Reason: Pain Or Fever > 100.5 bisacodyL [Bisacodyl] 10 mg RECTAL DAILY PRN PRN Reason: Constipation Sertraline HCl [Zoloft] 150 mg PO DAILY Polyethylene Glycol 3350 [Clearlax] 17 gram PO DAILY Hydrocortisone Suppository [Anusol-Hc] 1 supp RECTAL DAILY PRN PRN Reason: Hemorrhoids OLANZapine [ZyPREXA] 2.5 mg PO HS Lansoprazole [Prevacid] 15 mg PO QAM lisinopriL [Zestril] 5 mg PO HS Atorvastatin [Lipitor] 40 mg PO HS Loperamide [Imodium] 2 mg PO QID PRN PRN Reason: Loose Stool Fiber Powder 20 ml PO BID levETIRAcetam [Keppra] 750 mg PO BID@0700,1600 LORazepam [Ativan] 0.5 mg PO BID #6 tab Discontinued Aspirin EC [Ecotrin Low Dose] 81 mg PO HS Discharge Medication List Levothyroxine Sodium [Synthroid] 100 mcg PO QAM 05/21/16 [History] Acetaminophen Tab [Tylenol] 650 mg PO Q4H PRN 03/13/17 [History] bisacodyL [Bisacodyl] 10 mg RECTAL DAILY PRN 03/13/17 [History] Sertraline HCl [Zoloft] 150 mg PO DAILY 04/20/19 [History] Atorvastatin [Lipitor] 40 mg PO HS 05/11/20 [History] Hydrocortisone Suppository [Anusol-Hc] 1 supp RECTAL DAILY PRN 05/11/20 [History] Lansoprazole [Prevacid] 15 mg PO QAM 05/11/20 [History] Loperamide [Imodium] 2 mg PO QID PRN 05/11/20 [History] OLANZapine [ZyPREXA] 2.5 mg PO HS 05/11/20 [History] Polyethylene Glycol 3350 [Clearlax] 17 gram PO DAILY 05/11/20 [History] lisinopriL [Zestril] 5 mg PO HS 05/11/20 [History] Fiber Powder 20 ml PO BID 05/12/20 [History] levETIRAcetam [Keppra] 750 mg PO BID@0700,1600 05/12/20 [History] LORazepam [Ativan] 0.5 mg PO BID #6 tab 05/14/20 [Rx] Follow up Appointment(s)/Referral(s): Matt Lebron MD [Primary Care Provider] - 1-2 days Patient Instructions/Handouts: Gastrointestinal Bleeding (DC), Anemia (DC), Fall Prevention (DC), Rectal Prolapse (DC) Activity/Diet/Wound Care/Special Instructions: Patient is going to [facility] Activity as tolerated Continue with clear liquid diet Continue to hold aspirin Follow-up with surgery for colonoscopy as scheduled on 05/17/2020 Discharge Disposition: TRANSFER TO SNF/ECF
[2020-05-14 18:37] LABS: T4, Free (Free Thyroxine) 1.59 ng/dL (0.78-2.19)
== END 2020-05-14 17:36 | DRG 812 ==
LOC: EC 13:54 → 5NMEDONC 17:13 → OBSVTOIN 05-14 12:31
PROVIDERS: ADMIT Hospitalist; ATTEND Hospitalist
PROC: 30233N1 Transfusion of Nonautologous Red Blood Cells into Peripheral Vein, Percutaneous Approach (ICD-10-PCS; principal; 2020-05-12)
DX: D62 Acute posthemorrhagic anemia (principal); F32.3 Major depressive disorder, single episode, severe with psychotic features; K92.2 Gastrointestinal hemorrhage, unspecified; F10.97 Alcohol use, unspecified with alcohol-induced persisting dementia; G40.909 Epilepsy, unspecified, not intractable, without status epilepticus; K62.3 Rectal prolapse; I10 Essential (primary) hypertension; E03.9 Hypothyroidism, unspecified; F41.9 Anxiety disorder, unspecified; Z20.828 Contact with and (suspected) exposure to other viral communicable diseases; R32 Unspecified urinary incontinence; Z79.82 Long term (current) use of aspirin; Z79.890 Hormone replacement therapy; Z79.899 Other long term (current) drug therapy; Z86.73 Personal history of transient ischemic attack (TIA), and cerebral infarction without residual deficits; Z87.440 Personal history of urinary (tract) infections; Z87.891 Personal history of nicotine dependence; Z86.010 Personal history of colon polyps
CPT/HCPCS: 36415; 36430; 80048; 80053; 84439; 84443; 84484; 85025; 85610; 85730; 86850; 86900; 86901; 86920; 99284

== ENCOUNTER 2020-05-16 12:42 | Inpatient (IN) | payer OTHER ==
[2020-05-16] MEDS ORDERED: PROPOFOL 10 MG/ML 20 ML VIAL IV ONE (13:35)
[2020-05-16] MEDS: LACTATED RINGERS 1,000 ML IV SCH ×2 (13:42→19:46)
[2020-05-16 14:09] LABS: INR 0.9 (<1.2); Prothrombin Time 9.9 sec (9.0-12.0)
[2020-05-16] MEDS ORDERED: NALOXONE 0.4 MG/ML 1 ML VIAL IV PRN (14:09)
[2020-05-16] MEDS ORDERED: LACTATED RINGERS 1,000 ML IV ONE (14:09)
--- NOTE | 2020-05-16 14:09 | P.GSHP ---
History of Present Illness H&P Date: 05/16/20 Chief Complaint: Rectal prolapse This a 58-year-old female who presents today for colonoscopy. She is scheduled for low anterior resection for rectal prolapse tomorrow. Patient will undergo colonoscopy today and be admitted to the hospital afterwards for surgery tomorrow Past Medical History Past Medical History: CVA/TIA, Dementia, Hypertension, Seizure Disorder Additional Past Medical History / Comment(s): RECTAL PROLAPSE. Uses w/c, able to stand to transfer, incontinent,alcohol induced dementia, CVA without residual, last seizure unknown, UTI hypothyroidism, History of Any Multi-Drug Resistant Organisms: Unobtainable Past Surgical History: Unable to Obtain Additional Past Surgical History / Comment(s): PAIN CLINIC PROCEDURE -04/25/19. UNABLE TO OBTAIN PAST SURGICAL HX Past Anesthesia/Blood Transfusion Reactions: Unable to Obtain Additional Past Anesthesia/Blood Transfusion Reaction / Comment(s): unknown anesthesia hx Past Psychological History: Anxiety, Depression Additional Psychological History / Comment(s): psychotic disorder with delusions Smoking Status: Never smoker Past Alcohol Use History: None Reported, Abuse Additional Past Alcohol Use History / Comment(s): Per past medical records, pt has alcohol encephalopathy/dementia. Past Drug Use History: None Reported Additional Drug Use History / Comment(s): unknown hx - Past Family History Father Family Medical History: Unable to Obtain Mother Family Medical History: Unable to Obtain Medications and Allergies Home Medications Medication Instructions Recorded Confirmed Type Levothyroxine Sodium [Synthroid] 100 mcg PO QAM 05/21/16 05/12/20 History Acetaminophen Tab [Tylenol] 650 mg PO Q4H PRN 03/13/17 05/12/20 History bisacodyL [Bisacodyl] 10 mg RECTAL DAILY PRN 03/13/17 05/12/20 History Sertraline HCl [Zoloft] 150 mg PO DAILY 04/20/19 05/12/20 History Atorvastatin [Lipitor] 40 mg PO HS 05/11/20 05/12/20 History Hydrocortisone Suppository 1 supp RECTAL DAILY PRN 05/11/20 05/12/20 History [Anusol-Hc] Lansoprazole [Prevacid] 15 mg PO QAM 05/11/20 05/12/20 History Loperamide [Imodium] 2 mg PO QID PRN 05/11/20 05/12/20 History OLANZapine [ZyPREXA] 2.5 mg PO HS 05/11/20 05/12/20 History Polyethylene Glycol 3350 [Clearlax] 17 gram PO DAILY 05/11/20 05/12/20 History lisinopriL [Zestril] 5 mg PO HS 05/11/20 05/12/20 History Fiber Powder 20 ml PO BID 05/12/20 05/12/20 History levETIRAcetam [Keppra] 750 mg PO BID@0700,1600 05/12/20 05/12/20 History LORazepam [Ativan] 0.5 mg PO BID #6 tab 05/14/20 Rx Allergies Allergy/AdvReac Type Severity Reaction Status Date / Time No Known Allergies Allergy Verified 05/16/20 13:54 Surgical - Exam Vital Signs Temp Pulse Resp BP Pulse Ox 98.0 F 84 18 145/91 95 05/16/20 13:21 05/16/20 13:21 05/16/20 13:21 05/16/20 13:21 05/16/20 13:21 - General well developed, well nourished, no distress - Eyes PERRL - ENT normal pinna - Neck no masses - Respiratory normal expansion - Cardiovascular Rhythm: regular - Abdomen Abdomen: soft, non tender Assessment and Plan Assessment: History of rectal prolapse. We'll perform colonoscopy. Patient undergo low anterior resection tomorrow.
--- NOTE | 2020-05-16 23:50 | P.CONS ---
History of Present Illness - Reason for Consult Consult date: 05/16/20 Medical management - Chief Complaint Rectal prolapse - History of Present Illness Patient is a 60-year-old female with a known history of hypertension, history of CVA/ TIA with no residual weakness, dementia, anxiety/depression, history of alcohol abuse and hypothyroidism presents to hospital for colonoscopy. Patient underwent colonoscopy today showed rectal prolapse and was admitted to the hospital for low anterior resection of rectal prolapse. Patient currently denied any complaints of chest pain or shortness of breath. No nausea vomiting or abdominal pain or diarrhea. Denies any worsening abdominal pain. No cough or sputum production. Patient is currently blood pressure was 156/65 and pulse 67 respiration 18 pulse ox 99% on room air. Review of Systems Constitutional: Patient denies any fever or chills . No generalized weakness or weight loss. Abdomen: Patient denied nausea vomiting and diarrhea and abdominal pain. Cardiovascular: Patient denies any chest pain or short of breath no palpitations. Respiratory: patient denied any cough is from production. No shortness of breath Neurologic: Patient denied any numbness or tingling headache. Musculoskeletal: Patient denies any complaints of joint swelling or deformity. Skin: Negative Psychiatric: Negative Endocrine: No heat or cold intolerance. No recent weight gain. Genitourinary: No dysuria or hematuria. All other 14 point ROS negative except the above Past Medical History Past Medical History: CVA/TIA, Dementia, Hypertension, Seizure Disorder Additional Past Medical History / Comment(s): RECTAL PROLAPSE. Uses w/c, able to stand to transfer, incontinent,alcohol induced dementia, CVA without residual, last seizure unknown, UTI hypothyroidism, History of Any Multi-Drug Resistant Organisms: Unobtainable Past Surgical History: Unable to Obtain Additional Past Surgical History / Comment(s): PAIN CLINIC PROCEDURE -04/25/19. UNABLE TO OBTAIN PAST SURGICAL HX Past Anesthesia/Blood Transfusion Reactions: Unable to Obtain Additional Past Anesthesia/Blood Transfusion Reaction / Comm: unknown anesthesia hx Past Psychological History: Anxiety, Depression Additional Psychological History / Comment(s): psychotic disorder with delusions Smoking Status: Never smoker Past Alcohol Use History: None Reported, Abuse Additional Past Alcohol Use History / Comment(s): Per past medical records, pt has alcohol encephalopathy/dementia. Past Drug Use History: None Reported Additional Drug Use History / Comment(s): unknown hx - Past Family History Father Family Medical History: Unable to Obtain Mother Family Medical History: Unable to Obtain Medications and Allergies Home Medications Medication Instructions Recorded Confirmed Type Levothyroxine Sodium [Synthroid] 100 mcg PO QAM 05/21/16 05/12/20 History Acetaminophen Tab [Tylenol] 650 mg PO Q4H PRN 03/13/17 05/12/20 History bisacodyL [Bisacodyl] 10 mg RECTAL DAILY PRN 03/13/17 05/12/20 History Sertraline HCl [Zoloft] 150 mg PO DAILY 04/20/19 05/12/20 History Atorvastatin [Lipitor] 40 mg PO HS 05/11/20 05/12/20 History Hydrocortisone Suppository 1 supp RECTAL DAILY PRN 05/11/20 05/12/20 History [Anusol-Hc] Lansoprazole [Prevacid] 15 mg PO QAM 05/11/20 05/12/20 History Loperamide [Imodium] 2 mg PO QID PRN 05/11/20 05/12/20 History OLANZapine [ZyPREXA] 2.5 mg PO HS 05/11/20 05/12/20 History Polyethylene Glycol 3350 [Clearlax] 17 gram PO DAILY 05/11/20 05/12/20 History lisinopriL [Zestril] 5 mg PO HS 05/11/20 05/12/20 History Fiber Powder 20 ml PO BID 05/12/20 05/12/20 History levETIRAcetam [Keppra] 750 mg PO BID@0700,1600 05/12/20 05/12/20 History LORazepam [Ativan] 0.5 mg PO BID #6 tab 05/14/20 Rx Allergies Allergy/AdvReac Type Severity Reaction Status Date / Time No Known Allergies Allergy Verified 05/16/20 13:54 Physical Exam Vitals: Vital Signs Temp Pulse Resp BP Pulse Ox 05/16/20 15:00 97.6 F 65 18 156/65 99 05/16/20 14:45 78 18 137/78 98 05/16/20 14:28 138/93 05/16/20 14:27 78 18 138/99 98 05/16/20 14:12 74 18 158/95 92 L 05/16/20 13:21 98.0 F 84 18 145/91 95 Intake and Output 05/16/20 05/16/2020 06:59 14:59 22:59 Intake Total 400 Balance 400 Intake: IV 400 Other: Weight 71.6 kg PHYSICAL EXAMINATION: Patient is lying in the bed comfortably, no acute distress, awake alert and oriented.Cognitive impairment. HEENT: Normocephalic. Neck is supple. Pupils reactive. Nostrils clear. Oral cavity is moist. Ears reveal no drainage. Neck reveals no JVD, carotid bruits, or thyromegaly. CHEST EXAMINATION: Trachea is central. Symmetrical expansion. Lung coley clear to auscultation and percussion. CARDIAC: Normal S1, S2 with no gallops. No murmurs ABDOMEN: Soft. Bowel sounds normal. No organomegaly. No abdominal bruits. Extremities: reveal no edema. No clubbing or cyanosis Neurologically awake, alert, oriented x2-3 with well-coordinated movements. No focal deficits noted Skin: No rash or skin lesions. Psychiatric: Coperative. Nonsuicidal Musculoskeletal: No joint swelling or deformity. Normal range of motion. Assessment and Plan Assessment: Rectal prolapse. Admitted for low anterior resection of rectal prolapse. Hypertension Seizure disorder Hypothyroidism Dementia Anxiety/depression History of CVA/TIA no residual weakness History of alcohol abuse and associated dementia DVT prophylaxis heparin subcu Plan: Patient will be continued on IV hydration. Continue with home levothyroxine and other home medications. Follow-up CBC and BMP and restart blood pressure medications. We will continue to follow and further recommendations based on clinical course. Thank you for your consult. Time with Patient: Greater than 30
[2020-05-17] MEDS: LEVOTHYROXINE 100 MCG TAB PO SCH (04:32)
[2020-05-17] MEDS: HEPARIN SODIUM,PORCINE 5,000 UNIT/ML 1 ML VIAL SQ ONE ×3 (04:32→10:30)
[2020-05-17] MEDS ORDERED: ACETAMINOPHEN TAB 500 MG TAB PO ONE (05:00)
[2020-05-17] MEDS ORDERED: ACETAMINOPHEN IV (For NPO) 1,000 MG in EMPTY BAG 1 BAG IVPB ONE (05:00)
[2020-05-17] MEDS ORDERED: metroNIDAZOLE-NS PMX 500 MG in SALINE 1 100ML.BAG IVPB ONE (05:00)
[2020-05-17 07:22] LABS: Anisocytosis Moderate; Basophils % (A) 1 %; Eosinophils % (A) 0 %; HCT 27.9 % (34.0-46.0); HGB 8.1 gm/dL (11.4-16.0); Hypochromasia Marked; Lymphocytes # (A) 1.5 k/uL (1.0-4.8); Lymphocytes % (A) 33 %; MCHC 29.1 g/dL (31.0-37.0); MCV 75.5 fL (80.0-100.0); Mean Platelet Volume 7.2; Microcytosis Moderate; Monocytes # (A) 0.4 k/uL (0-1.0); Monocytes % (A) 8 %; Neutrophils # (A) 2.6 k/uL (1.3-7.7); Neutrophils % (A) 56 %; Platelet Count 229 k/uL (150-450); Poikilocytosis Moderate; RDW 21.3 % (11.5-15.5); WBC 4.5 k/uL (3.8-10.6)
[2020-05-17 07:55] LABS: African American GFR (CKD) >90 (>60 ml/min/1.73 sqM); Anion Gap 5 mmol/L; Blood Urea Nitrogen 11 mg/dL (7-17); Calcium 8.8 mg/dL (8.4-10.2); Carbon Dioxide 28 mmol/L (22-30); Chloride 105 mmol/L (98-107); Glucose 91 mg/dL (74-99); Non-African American GFR(CKD) >90 (>60 ml/min/1.73 sqM); Potassium 3.7 mmol/L (3.5-5.1); Sodium 138 mmol/L (137-145)
[2020-05-17] MEDS: PANTOPRAZOLE 40 MG TABLET PO SCH (08:33)
[2020-05-17] MEDS: SERTRALINE 50 MG TAB PO SCH (08:34)
[2020-05-17] MEDS ORDERED: IV FLUID CONTINUATION 1,000 ML IV ONE ×2 (09:57)
[2020-05-17] MEDS ORDERED: ONDANSETRON 4 MG/2 ML VIAL ONE (10:11)
[2020-05-17] MEDS ORDERED: ONDANSETRON 4 MG/2 ML VIAL IVP ONE (10:14)
[2020-05-17] MEDS ORDERED: ACETAMINOPHEN IV (For NPO) 1,000 MG/100 ML VIAL ONE (10:32)
[2020-05-17] MEDS ORDERED: PROPOFOL 10 MG/ML 20 ML VIAL IV ONE (10:32)
[2020-05-17] MEDS ORDERED: ROCURONIUM BROMIDE 10 MG/ML 5 ML VIAL IV ONE (10:32)
[2020-05-17] MEDS ORDERED: NEOSTIGMINE 1 MG/ML 10 ML VIAL ONE (10:32)
[2020-05-17] MEDS ORDERED: SUCCINYLCHOLINE CHLORIDE 100 MG/5 ML SYR IV ONE (10:32)
[2020-05-17] MEDS ORDERED: MIDAZOLAM 2 MG/2 ML VIAL ONE (10:32)
[2020-05-17] MEDS ORDERED: GLYCOPYRROLATE 0.2 MG/ML 2 ML VIAL ONE (10:32)
[2020-05-17] MEDS ORDERED: LIDOCAINE 1% INJ 10MG/ML (20 ML MDV) ONE (10:32)
[2020-05-17] MEDS ORDERED: fentaNYL (PF) 50 MCG/ML 2 ML AMP ONE (10:32)
[2020-05-17] MEDS ORDERED: ACETAMINOPHEN IV (For NPO) 1,000 MG in EMPTY BAG 1 BAG IVPB STA (10:33)
[2020-05-17] MEDS ORDERED: LACTATED RINGERS 1,000 ML IV ONE ×2 (11:14)
[2020-05-17] MEDS ORDERED: METOCLOPRAMIDE 5 MG/ML 2 ML VIAL IVP PRN (12:17)
[2020-05-17] MEDS ORDERED: BENZOCAINE/MENTHOL LOZENG 1 EACH LOZENGE MUCOUS MEM PRN (12:17)
[2020-05-17] MEDS ORDERED: ONDANSETRON 4 MG/2 ML VIAL IVP PRN (12:17)
--- NOTE | 2020-05-17 12:17 | P.OP ---
Date of Procedure: 05/17/20 Preoperative Diagnosis: Rectal prolapse Postoperative Diagnosis: Rectal prolapse Procedure(s) Performed: Low anterior resection Anesthesia: SONY Surgeon: Gregory Mims Estimated Blood Loss (ml): 50 Pathology: other (Rectosigmoid) Condition: stable Disposition: PACU Description of Procedure: The patient's placed on the operative table in the supine position. She received general anesthesia. She was then placed in dorsal lithotomy position. The abdomen was prepped and draped in sterile fashion. The abdomen was entered through a low midline incision. The Bookwalter tract with wound. The abdomen was examined. Patient a very floppy sigmoid and rectum. The sigmoid colon was mobilized. And then the sigmoid colon was transected with the IRENE stapler. The mesentery the sigmoid and rectum was taken with the Enseal device. The rectum was then transected with the contour stapler. The specimens of pathology. At this point a opening was made in the proximal colon and then the 25 mm EEA anvil was placed in the colon. The colon was then transected just proximal to the opening with a GI stapler and then the Enseal device was used to divide the mesentery and the specimen sent to pathology. The anvil was then driven through the staple line. Next the medical assistant cardiology placed the EEA stapler patient's anus and the stapler is placed against the rectal staple line the stapler was then opened. And then the anvil To stapler. The stapler then closed and then fired. 2 intact tissue rings were withdrawn for stapler. Using hydro-cloth drier the bowel was occluded and then via a rigid sigmoidoscope the rectum was inflated with air. There is no evidence of extravasation. There is no evidence of leak. This point the area was irrigated. There is no plane seen. The fascia was closed with looped #1 PDS suture. Skin was closed tiffany. Patient top she will was sent to recovery room in stable condition.
[2020-05-17] MEDS: HYDROmorphone 1 MG/ML 1 ML SYRINGE IVP ONE ×4 (12:30→12:53)
[2020-05-17] MEDS: KETOROLAC 15 MG/ML 1 ML VIAL IVP PRN ×2 (12:32→20:42)
[2020-05-17] MEDS ORDERED: HYDROmorphone 1 MG/ML 1 ML SYRINGE IM PRN (13:11)
[2020-05-17] MEDS: D5-0.45% NACL WITH KCL 20MEQ/L 1,000 ML IV SCH ×2 (13:39→22:03)
--- NOTE | 2020-05-17 13:40 | P.PN ---
Subjective Progress Note Date: 05/17/20 Principal diagnosis: Patient is a 60-year-old female with a known history of hypertension, history of CVA/ TIA with no residual weakness, dementia, anxiety/depression, history of a lcohol abuse and hypothyroidism presents to hospital for colonoscopy. Patient underwent colonoscopy today showed rectal prolapse and was admitted to the hospital for low anterior resection of rectal prolapse. Patient currently denied any complaints of chest pain or shortness of breath. No nausea vomiting or abdominal pain or diarrhea. Denies any worsening abdominal pain. No cough or sputum production. Patient is currently blood pressure was 156/65 and pulse 67 respiration 18 pulse ox 99% on room air. 05/17/2020 Patient is seen and evaluated and follow-up this morning currently awaiting to undergo lower anterior resection for rectal prolapse. No acute overnight issues noted. Patient denying any chest pain, shortness of breath, or palpitations. Patient is afebrile. No reports of nausea or vomiting and patient has been nothing by mouth this morning for the procedure. Will continue to follow along closely with surgery and await surgical report today. Will repeat a.m. labs and continue to monitor vital signs closely. Will monitor for postop hypotension and hold blood pressure medications at this time. Objective - Vital Signs Vital signs: Vital Signs Temp 98.4 F 05/17/20 12:16 Pulse 48 L 05/17/20 13:15 Resp 14 05/17/20 13:15 BP 147/76 05/17/20 13:15 Pulse Ox 100 05/17/20 13:15 Intake & Output 05/16/20 05/17/20 05/17/20 18:59 06:59 18:59 Intake Total 279 168 3197 Output Total 150 Balance 008 373 2299 Weight 71.6 kg Intake: IV 400 1350 Intake, IV Titration 340 Amount ACETAMINOPHEN IV (For NPO 100 ) 1,000 mg In Empty Bag 1 bag @ 400 mls/hr IVPB ONCE ONE Rx#:[id number] Lactated Ringers 1,000 ml 240 @ 20 mls/hr IV .Q24H [facility] Rx#:[id number] Output: Urine 100 Estimated Blood Loss 50 Other: Voiding Method Toilet # Voids 3 - Exam Patient is lying in the bed comfortably, no acute distress, awake alert and oriented. Cognitive impairment. HEENT: Normocephalic. Neck is supple. Pupils reactive. Nostrils clear. Oral cavity is moist. Ears reveal no drainage. Neck reveals no JVD, carotid bruits, or thyromegaly. CHEST EXAMINATION: Trachea is central. Symmetrical expansion. Lung coley clear to auscultation and percussion. CARDIAC: Normal S1, S2 with no gallops. No murmurs ABDOMEN: Soft. Bowel sounds normal. No organomegaly. No abdominal bruits. Extremities: reveal no edema. No clubbing or cyanosis Neurologically awake, alert, oriented x2-3 with well-coordinated movements. No focal deficits noted Skin: No rash or skin lesions. Psychiatric: Cooperative. Non-suicidal Musculoskeletal: No joint swelling or deformity. Normal range of motion. - Labs CBC & Chem 7: 05/17/20 06:41 05/17/20 06:41 Labs: Abnormal Lab Results - Last 24 Hours (Table) 05/17/20 Range/Units 06:41 RBC 3.70 L (3.80-5.40) m/uL Hgb 8.1 L (11.4-16.0) gm/dL Hct 27.9 L (34.0-46.0) % MCV 75.5 L (80.0-100.0) fL MCH 22.0 L (25.0-35.0) pg MCHC 29.1 L (31.0-37.0) g/dL RDW 21.3 H (11.5-15.5) % Assessment and Plan Assessment: Rectal prolapse. Admitted for low anterior resection of rectal prolapse. Hypertension Seizure disorder Hypothyroidism Dementia Anxiety/depression History of CVA/TIA no residual weakness History of alcohol abuse and associated dementia DVT prophylaxis heparin subcu Plan: Continue current medications, management, and symptomatic treatment. Patient is scheduled to undergo low anterior resection for rectal prolapse with Dr. Mims today. Will await report. we'll continue to monitor vital signs and labs closely 3P labs in the morning. Further recommendations to follow. Thank you for this consult and we will continue to follow with you during hosp italization.
[2020-05-17] MEDS: HEPARIN SODIUM,PORCINE 5,000 UNIT/ML 1 ML VIAL SQ SCH ×2 (16:34→23:59)
[2020-05-17] MEDS: ATORVASTATIN 40 MG TAB PO SCH (20:37)
[2020-05-17] MEDS: ALVIMOPAN 12 MG CAPSULE PO SCH (20:37)
[2020-05-17] MEDS: OLANZapine 2.5 MG TAB PO SCH (20:37)
[2020-05-18] MEDS: LEVOTHYROXINE 100 MCG TAB PO SCH (05:35)
[2020-05-18] MEDS: ALVIMOPAN 12 MG CAPSULE PO SCH ×2 (08:38→20:23)
[2020-05-18] MEDS: PANTOPRAZOLE 40 MG TABLET PO SCH (08:38)
[2020-05-18] MEDS: SERTRALINE 50 MG TAB PO SCH (08:38)
[2020-05-18] MEDS: KETOROLAC 15 MG/ML 1 ML VIAL IVP PRN (08:38)
[2020-05-18] MEDS: HEPARIN SODIUM,PORCINE 5,000 UNIT/ML 1 ML VIAL SQ SCH ×3 (08:39→23:54)
[2020-05-18] MEDS ORDERED: HYDROmorphone 1 MG/ML 1 ML SYRINGE IVP PRN (09:45)
[2020-05-18 10:00] LABS: Anisocytosis Moderate; HCT 32.2 % (34.0-46.0); HGB 9.2 gm/dL (11.4-16.0); Hypochromasia Marked; MCH 22.4 pg (25.0-35.0); MCHC 28.7 g/dL (31.0-37.0); MCV 78.2 fL (80.0-100.0); Mean Platelet Volume 7.1; Microcytosis Slight; Platelet Count 264 k/uL (150-450); Poikilocytosis Moderate; RBC 4.12 m/uL (3.80-5.40); RDW 20.2 % (11.5-15.5); WBC 24.7 k/uL (3.8-10.6)
[2020-05-18] MEDS: HYDROmorphone 0.5 MG/0.5 ML SYRINGE IVP PRN ×3 (10:14→21:51)
[2020-05-18] MEDS: D5-0.45% NACL WITH KCL 20MEQ/L 1,000 ML IV SCH ×2 (10:18→20:23)
--- NOTE | 2020-05-18 12:48 | P.PN ---
Subjective Progress Note Date: 05/18/20 CHIEF COMPLAINT: Rectal prolapse HISTORY OF PRESENT ILLNESS: Patient is postop day #1 status post lower anterior resection for rectal prolapse. She is sitting in bedside chair. She reports that her pain is tolerable. She denies any nausea or vomiting. She is currently clear liquid diet. She did have bleeding at her incision site nursing staff reinforced dressing. There is no blood present on the dressing. Patient afebrile. White count 24.7 hemoglobin 9.2 PHYSICAL EXAM: VITAL SIGNS: Reviewed. GENERAL: Well-developed in no acute distress. HEENT: No sclera icterus. Extraocular movements grossly intact. Moist buccal mucosa. Head is atraumatic, normocephalic. ABDOMEN: Soft. Nondistended. Reinforced dressing is clean dry and intact NEUROLOGIC: Alert and oriented. Cranial nerves II through XII grossly intact. ASSESSMENT: 1. Rectal prolapse status post lower anterior resection. Postoperative day 1 PLAN: -Continue IV fluids -Continue Dilaudid and Toradol as needed for pain control -GI prophylaxis Protonix and DVT prophylaxis subcu heparin Physician Back Up Machine Operator note has been reviewed by physician. Signing provider agrees with the documented findings, assessment, and plan of care. Objective - Vital Signs Vital signs: Vital Signs Temp 98.8 F 05/18/20 07:00 Pulse 88 05/18/20 08:10 Resp 15 05/18/20 08:10 BP 112/71 05/18/20 07:00 Pulse Ox 98 05/18/20 07:00 Intake & Output 05/17/20 05/18/20 05/18/20 18:59 06:59 18:59 Intake Total 1350 1435 Output Total 150 200 26 Balance 1200 1235 -26 Intake: IV 1350 Intake, IV Titration 1375 Amount D5-0.45% NaCl with KCl 1375 20Meq/l 1,000 ml @ 125 mls/hr IV .Q8H [facility] Rx#: [id number] Oral 60 Output: Urine 100 200 26 Uretheral (Seay) 26 Estimated Blood Loss 50 Other: Voiding Method Indwelling Catheter Indwelling Catheter Indwelling Catheter - Labs CBC & Chem 7: 05/18/20 09:36 05/17/20 06:41 Labs: Abnormal Lab Results - Last 24 Hours (Table) 05/18/20 Range/Units 09:36 WBC 24.7 H (3.8-10.6) k/uL Hgb 9.2 L (11.4-16.0) gm/dL Hct 32.2 L (34.0-46.0) % MCV 78.2 L (80.0-100.0) fL MCH 22.4 L (25.0-35.0) pg MCHC 28.7 L (31.0-37.0) g/dL RDW 20.2 H (11.5-15.5) %
--- NOTE | 2020-05-18 13:29 | P.PN ---
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 Patient underwent colonoscopy today showed rectal prolapse and was admitted to the hospital for low anterior resection of rectal prolapse. Patient currently denied any complaints of chest pain or shortness of breath. No nausea vomiting or abdominal pain or diarrhea. Denies any worsening abdominal pain. No cough or sputum production. Patient is currently blood pressure was 156/65 and pulse 67 respiration 18 pulse ox 99% on room air. 05/17/2020 Patient is seen and evaluated and follow-up this morning currently awaiting to undergo lower anterior resection for rectal prolapse. No acute overnight issues noted. Patient denying any chest pain, shortness of breath, or palpitations. Patient is afebrile. No reports of nausea or vomiting and patient has been nothing by mouth this morning for the procedure. Will continue to follow along closely with surgery and await surgical report today. Will repeat a.m. labs and continue to monitor vital signs closely. Will monitor for postop hypotension and hold blood pressure medications at this time. 05/18/2020 Patient is seen and evaluated in follow-up currently sitting up in the chair with no acute overnight issues. Following along closely with surgery. Patient is status post lower anterior resection for rectal prolapse and is being closely monitored. Patient is currently maintained on a clear liquid diet and tolerating well with no reports of nausea or vomiting noted. Will titrate IV fluids and decrease them slightly. Surgical dressing at the incision site was reinforced by nursing staff as there was some minimal bleeding at her site. Dressing is currently dry and intact. Will continue to monitor closely. Review of systems: Constitutional: No reports of fatigue, fever, or chills Cardiovascular: No reports of chest pain or palpitations Respiratory: No reports of shortness of breath or cough GI: No reports of nausea, vomiting, patient is having some mild intermittent abdominal discomfort : No reports of dysuria or retention Neurovascular: No reports of weakness or numbness All medications have been reviewed Objective - Vital Signs Vital signs: Vital Signs Temp 98.8 F 05/18/20 07:00 Pulse 88 05/18/20 08:10 Resp 15 05/18/20 08:10 BP 112/71 05/18/20 07:00 Pulse Ox 98 05/18/20 07:00 Intake & Output 05/17/20 05/18/20 05/18/20 18:59 06:59 18:59 Intake Total 1350 1435 Output Total 150 200 26 Balance 1200 1235 -26 Intake: IV 1350 Intake, IV Titration 1375 Amount D5-0.45% NaCl with KCl 1375 20Meq/l 1,000 ml @ 125 mls/hr IV .Q8H [facility] Rx#: [id number] Oral 60 Output: Urine 100 200 26 Uretheral (Seay) 26 Estimated Blood Loss 50 Other: Voiding Method Indwelling Catheter Indwelling Catheter Indwelling Catheter - Exam Patient is sitting up in the chair comfortably, no acute distress, awake alert and oriented. Cognitive impairment. HEENT: Normocephalic. Neck is supple. Pupils reactive. Nostrils clear. Oral cav ity is moist. Ears reveal no drainage. Neck reveals no JVD, carotid bruits, or thyromegaly. CHEST EXAMINATION: Trachea is central. Symmetrical expansion. Lung coley clear to auscultation and percussion. CARDIAC: Normal S1, S2 with no gallops. No murmurs ABDOMEN: Soft. Sluggish bowel sounds noted. No organomegaly. No abdominal bruits. Extremities: reveal no edema. No clubbing or cyanosis Neurologically awake, alert, oriented x2-3 with well-coordinated movements. No focal deficits noted Skin: No rash or skin lesions. Psychiatric: Cooperative. Non-suicidal Musculoskeletal: No joint swelling or deformity. Normal range of motion. - Labs CBC & Chem 7: 05/18/20 09:36 05/17/20 06:41 Labs: Abnormal Lab Results - Last 24 Hours (Table) 05/18/20 Range/Units 09:36 WBC 24.7 H (3.8-10.6) k/uL Hgb 9.2 L (11.4-16.0) gm/dL Hct 32.2 L (34.0-46.0) % MCV 78.2 L (80.0-100.0) fL MCH 22.4 L (25.0-35.0) pg MCHC 28.7 L (31.0-37.0) g/dL RDW 20.2 H (11.5-15.5) % Assessment and Plan Assessment: Rectal prolapse. Status post low anterior resection of rectal prolapse, postop day #1. Hypertension Elevated white blood count, most likely reactive Seizure disorder Hypothyroidism Dementia Anxiety/depression History of CVA/TIA no residual weakness History of alcohol abuse and associated dementia DVT prophylaxis heparin subcu Plan: Continue current medications, management, and symptomatic treatment. Patient underwent low anterior resection for rectal prolapse with Dr. Mims postop day #1. Hemoglobin is stable at 9.2, white blood count elevated at 24.7 although most likely reactive as patient has no signs of fever or infection at this time. we'll continue to monitor vital signs and labs closely and repeat labs in the morning. Further recommendations to follow. Thank you for this consult and we will continue to follow with you during hospitalization.
[2020-05-18] MEDS: ATORVASTATIN 40 MG TAB PO SCH (20:23)
[2020-05-18] MEDS: OLANZapine 2.5 MG TAB PO SCH (20:23)
[2020-05-19] MEDS: HYDROmorphone 0.5 MG/0.5 ML SYRINGE IVP PRN ×2 (02:10→05:32)
[2020-05-19] MEDS: D5-0.45% NACL WITH KCL 20MEQ/L 1,000 ML IV SCH ×2 (04:18→16:52)
[2020-05-19] MEDS: LEVOTHYROXINE 100 MCG TAB PO SCH (05:29)
[2020-05-19 07:28] LABS: Anisocytosis Moderate; Basophils % (A) 0 %; Eosinophils % (A) 0 %; HCT 27.8 % (34.0-46.0); Hypochromasia Marked; Lymphocytes # (A) 1.4 k/uL (1.0-4.8); Lymphocytes % (A) 7 %; MCH 22.2 pg (25.0-35.0); MCHC 28.7 g/dL (31.0-37.0); MCV 77.4 fL (80.0-100.0); Microcytosis Moderate; Monocytes # (A) 0.8 k/uL (0-1.0); Monocytes % (A) 4 %; Neutrophils # (A) 17.7 k/uL (1.3-7.7); Neutrophils % (A) 88 %; Platelet Count 218 k/uL (150-450); Poikilocytosis Moderate; RBC 3.59 m/uL (3.80-5.40); RDW 20.5 % (11.5-15.5)
[2020-05-19 07:39] LABS: African American GFR (CKD) >90 (>60 ml/min/1.73 sqM); Anion Gap 3 mmol/L; Blood Urea Nitrogen 10 mg/dL (7-17); Calcium 8.5 mg/dL (8.4-10.2); Carbon Dioxide 27 mmol/L (22-30); Chloride 100 mmol/L (98-107); Glucose 121 mg/dL (74-99); Non-African American GFR(CKD) >90 (>60 ml/min/1.73 sqM); Sodium 130 mmol/L (137-145)
[2020-05-19] MEDS: HEPARIN SODIUM,PORCINE 5,000 UNIT/ML 1 ML VIAL SQ SCH ×3 (08:37→23:15)
[2020-05-19] MEDS: PANTOPRAZOLE 40 MG TABLET PO SCH (08:37)
[2020-05-19] MEDS: ALVIMOPAN 12 MG CAPSULE PO SCH ×2 (08:37→20:14)
[2020-05-19] MEDS: SERTRALINE 50 MG TAB PO SCH (08:37)
--- NOTE | 2020-05-19 09:25 | P.PN ---
Subjective Progress Note Date: 05/19/20 Principal diagnosis: Prolapse Patient doing better today. Says her pain is improved. Still having soreness however. Slightly confused. T-max 99.2. White blood cell count improved from 28-20. Hemoglobin 8. No flatus. Objective - Vital Signs Vital signs: Vital Signs Temp 98.6 F 05/19/20 07:00 Pulse 106 H 05/19/20 07:00 Resp 16 05/19/20 07:00 BP 144/91 05/19/20 07:00 Pulse Ox 98 05/19/20 08:32 Intake & Output 05/18/20 05/19/20 05/19/20 18:59 06:59 18:59 Output Total 226 Balance -226 Output: Urine 226 Uretheral (Seay) 26 Other: Voiding Method Toilet Toilet Toilet Diaper Diaper Incontinent Incontinent # Voids 2 - Exam Abdomen: Soft, nondistended, incision clean and dry, mild tenderness - Labs CBC & Chem 7: 05/19/20 06:44 05/19/20 06:44 Labs: Abnormal Lab Results - Last 24 Hours (Table) 05/18/20 05/19/20 05/19/20 Range/Units 09:36 06:44 06:44 WBC 24.7 H 20.0 H (3.8-10.6) k/uL RBC 3.59 L (3.80-5.40) m/uL Hgb 9.2 L 8.0 L (11.4-16.0) gm/dL Hct 32.2 L 27.8 L (34.0-46.0) % MCV 78.2 L 77.4 L (80.0-100.0) fL MCH 22.4 L 22.2 L (25.0-35.0) pg MCHC 28.7 L 28.7 L (31.0-37.0) g/dL RDW 20.2 H 20.5 H (11.5-15.5) % Neutrophils # 17.7 H (1.3-7.7) k/uL Sodium 130 L (137-145) mmol/L Glucose 121 H (74-99) mg/dL Assessment and Plan (1) Rectal prolapse Narrative/Plan: Patient doing fairly well. Continue clear liquid diet. Increase activity level. Monitor for return bowel function. Repeat CBC tomorrow. Current Visit: Yes Status: Acute Code(s): K62.3 - RECTAL PROLAPSE SNOMED Code(s): 83309131
--- NOTE | 2020-05-19 18:20 | P.PN ---
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 Patient underwent colonoscopy today showed rectal prolapse and was admitted to the hospital for low anterior resection of rectal prolapse. Patient currently denied any complaints of chest pain or shortness of breath. No nausea vomiting or abdominal pain or diarrhea. Denies any worsening abdominal pain. No cough or sputum production. Patient is currently blood pressure was 156/65 and pulse 67 respiration 18 pulse ox 99% on room air. 05/17/2020 Patient is seen and evaluated and follow-up this morning currently awaiting to undergo lower anterior resection for rectal prolapse. No acute overnight issues noted. Patient denying any chest pain, shortness of breath, or palpitations. Patient is afebrile. No reports of nausea or vomiting and patient has been nothing by mouth this morning for the procedure. Will continue to follow along closely with surgery and await surgical report today. Will repeat a.m. labs and continue to monitor vital signs closely. Will monitor for postop hypotension and hold blood pressure medications at this time. 05/18/2020 Patient is seen and evaluated in follow-up currently sitting up in the chair with no acute overnight issues. Following along closely with surgery. Patient is status post lower anterior resection for rectal prolapse and is being closely monitored. Patient is currently maintained on a clear liquid diet and tolerating well with no reports of nausea or vomiting noted. Will titrate IV fluids and decrease them slightly. Surgical dressing at the incision site was reinforced by nursing staff as there was some minimal bleeding at her site. Dressing is currently dry and intact. Will continue to monitor closely. 05/19/2020 Patient is seen and evaluated in room at bedside; denies any specific complaints; vital signs remained stable; lab review shows an improved white blood count from 28,000 down to 20,000; surgery is following patient and recommending to increase activity and continue with clear liquid diet Objective - Vital Signs Vital signs: Vital Signs Temp 98.6 F 05/19/20 07:00 Pulse 106 H 05/19/20 07:00 Resp 16 05/19/20 07:00 BP 144/91 05/19/20 07:00 Pulse Ox 98 05/19/20 08:32 Intake & Output 05/18/20 05/19/2020 18:59 06:59 18:59 Output Total 226 Balance -226 Output: Urine 226 Uretheral (Seay) 26 Other: Voiding Method Toilet Toilet Toilet Diaper Diaper Incontinent Incontinent # Voids 2 - Exam HEENT: Normocephalic. Neck is supple. Pupils reactive. Nostrils clear. Oral cavity is moist. Ears reveal no drainage. Neck reveals no JVD, carotid bruits, or thyromegaly. CHEST EXAMINATION: Trachea is central. Symmetrical expansion. Lung coley clear to auscultation and percussion. CARDIAC: Normal S1, S2 with no gallops. No murmurs ABDOMEN: Soft. Sluggish bowel sounds noted. No organomegaly. No abdominal bruit s. Extremities: reveal no edema. No clubbing or cyanosis Neurologically awake, alert, oriented x2-3 with well-coordinated movements. No focal deficits noted Skin: No rash or skin lesions. - Labs CBC & Chem 7: 05/19/20 06:44 05/19/20 06:44 Labs: Abnormal Lab Results - Last 24 Hours (Table) 05/19/20 05/19/20 Range/Units 06:44 06:44 WBC 20.0 H (3.8-10.6) k/uL RBC 3.59 L (3.80-5.40) m/uL Hgb 8.0 L (11.4-16.0) gm/dL Hct 27.8 L (34.0-46.0) % MCV 77.4 L (80.0-100.0) fL MCH 22.2 L (25.0-35.0) pg MCHC 28.7 L (31.0-37.0) g/dL RDW 20.5 H (11.5-15.5) % Neutrophils # 17.7 H (1.3-7.7) k/uL Sodium 130 L (137-145) mmol/L Glucose 121 H (74-99) mg/dL Assessment and Plan Assessment: Rectal prolapse. Status post low anterior resection of rectal prolapse, postop day #1. Hypertension Elevated white blood count, most likely reactive Seizure disorder Hypothyroidism Dementia Anxiety/depression History of CVA/TIA no residual weakness History of alcohol abuse and associated dementia DVT prophylaxis heparin subcu Plan: Continue current medications, management, and symptomatic treatment. Patient underwent low anterior resection for rectal prolapse with Dr. Mims postop day #1. Hemoglobin is stable at 9.2, white blood count elevated at 24.7 although most likely reactive as patient has no signs of fever or infection at this time. we'll continue to monitor vital signs and labs closely and repeat labs in the morning. Further recommendations to follow.
[2020-05-19] MEDS: ACETAMINOPHEN TAB 325 MG TAB PO PRN ×2 (18:25→23:15)
[2020-05-19] MEDS: ATORVASTATIN 40 MG TAB PO SCH (20:14)
[2020-05-19] MEDS: OLANZapine 2.5 MG TAB PO SCH (20:14)
[2020-05-20] MEDS: LEVOTHYROXINE 100 MCG TAB PO SCH (05:48)
[2020-05-20] MEDS: D5-0.45% NACL WITH KCL 20MEQ/L 1,000 ML IV SCH ×2 (05:48→20:52)
[2020-05-20] MEDS: ALVIMOPAN 12 MG CAPSULE PO SCH ×3 (08:04→20:49)
[2020-05-20] MEDS: HEPARIN SODIUM,PORCINE 5,000 UNIT/ML 1 ML VIAL SQ SCH ×4 (08:04→23:29)
[2020-05-20] MEDS: PANTOPRAZOLE 40 MG TABLET PO SCH ×2 (08:04→10:19)
[2020-05-20] MEDS: SERTRALINE 50 MG TAB PO SCH ×2 (08:04→10:19)
[2020-05-20 08:40] LABS: Anisocytosis Moderate; Basophils % (A) 0 %; Eosinophils % (A) 0 %; HCT 25.1 % (34.0-46.0); HGB 7.3 gm/dL (11.4-16.0); Hypochromasia Marked; Lymphocytes # (A) 1.3 k/uL (1.0-4.8); Lymphocytes % (A) 8 %; MCH 22.1 pg (25.0-35.0); MCHC 29.1 g/dL (31.0-37.0); Mean Platelet Volume 7.6; Microcytosis Moderate; Monocytes # (A) 0.6 k/uL (0-1.0); Monocytes % (A) 4 %; Neutrophils # (A) 15.3 k/uL (1.3-7.7); Neutrophils % (A) 88 %; Platelet Count 215 k/uL (150-450); Poikilocytosis Moderate; RDW 20.6 % (11.5-15.5); WBC 17.3 k/uL (3.8-10.6)
[2020-05-20 08:52] LABS: African American GFR (CKD) >90 (>60 ml/min/1.73 sqM); Anion Gap 5 mmol/L; Blood Urea Nitrogen 10 mg/dL (7-17); Calcium 8.2 mg/dL (8.4-10.2); Carbon Dioxide 24 mmol/L (22-30); Chloride 100 mmol/L (98-107); Glucose 95 mg/dL (74-99); Non-African American GFR(CKD) >90 (>60 ml/min/1.73 sqM); Sodium 129 mmol/L (137-145)
--- NOTE | 2020-05-20 09:05 | CT ---
EXAMINATION TYPE: CT brain wo con DATE OF EXAM: 05/20/2020 HISTORY: left sided weakness CT DLP: 1039.4 mGycm. Automated Exposure Control for Dose Reduction was Utilized. TECHNIQUE: CT scan of the head is performed without contrast. COMPARISON: 02/14/2017 CT head FINDINGS: There is no acute intracranial hemorrhage, midline shift, or mass effect identified. There is periven tricular, subcortical, and deep white matter hypodensities likely sequela of chronic microvascular is chemic change and old lacunar infarcts. The ventricles, sulci, and cisterns are normal in size and configuration given volume loss. No extra-axial fluid collection. Bones and extracranial soft tissues are intact. The globes are gross ly symmetric. Visualized sinuses and mastoid air cells are well aerated. IMPRESSION: 1. No acute adrenal hemorrhage, midline shift, or mass effect. 2. Marked white matter patchy hypodensities, similar to 2017 CT comparison, likely sequela of chronic microvascular ischemic change.
--- NOTE | 2020-05-20 09:46 | P.PN ---
Subjective Progress Note Date: 05/20/20 Principal diagnosis: Prolapse Patient pleasantly confused. Complaining of mild discomfort. White blood cell count improved. She is afebrile. Tolerating clear liquids. Objective - Vital Signs Vital signs: Vital Signs Temp 98.4 F 05/20/20 00:50 Pulse 112 H 05/20/20 00:50 Resp 20 05/20/20 00:50 BP 137/92 05/20/20 00:50 Pulse Ox 92 L 05/20/20 00:50 Intake & Output 05/19/20 05/20/20 05/20/20 18:59 06:59 18:59 Other: Voiding Method Toilet Toilet Toilet Diaper Diaper Diaper Incontinent Incontinent Incontinent # Voids 1 - Exam Abdomen: Soft, nondistended, incision clean and dry, mild tenderness - Labs CBC & Chem 7: 05/20/20 07:53 05/20/20 07:53 Labs: Abnormal Lab Results - Last 24 Hours (Table) 05/20/20 05/20/20 Range/Units 07:53 07:53 WBC 17.3 H (3.8-10.6) k/uL RBC 3.30 L (3.80-5.40) m/uL Hgb 7.3 L (11.4-16.0) gm/dL Hct 25.1 L (34.0-46.0) % MCV 76.0 L (80.0-100.0) fL MCH 22.1 L (25.0-35.0) pg MCHC 29.1 L (31.0-37.0) g/dL RDW 20.6 H (11.5-15.5) % Neutrophils # 15.3 H (1.3-7.7) k/uL Sodium 129 L (137-145) mmol/L Calcium 8.2 L (8.4-10.2) mg/dL Assessment and Plan (1) Rectal prolapse Narrative/Plan: Patient doing fairly well. White blood cell count improving. Continue clear liquids for now. Increase activity. Current Visit: Yes Status: Acute Code(s): K62.3 - RECTAL PROLAPSE SNOMED Code(s): 55715710
--- NOTE | 2020-05-20 17:16 | P.PN ---
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 Patient underwent colonoscopy today showed rectal prolapse and was admitted to the hospital for low anterior resection of rectal prolapse. Patient currently denied any complaints of chest pain or shortness of breath. No nausea vomiting or abdominal pain or diarrhea. Denies any worsening abdominal pain. No cough or sputum production. Patient is currently blood pressure was 156/65 and pulse 67 respiration 18 pulse ox 99% on room air. 05/17/2020 Patient is seen and evaluated and follow-up this morning currently awaiting to undergo lower anterior resection for rectal prolapse. No acute overnight issues noted. Patient denying any chest pain, shortness of breath, or palpitations. Patient is afebrile. No reports of nausea or vomiting and patient has been nothing by mouth this morning for the procedure. Will continue to follow along closely with surgery and await surgical report today. Will repeat a.m. labs and continue to monitor vital signs closely. Will monitor for postop hypotension and hold blood pressure medications at this time. 05/18/2020 Patient is seen and evaluated in follow-up currently sitting up in the chair with no acute overnight issues. Following along closely with surgery. Patient is status post lower anterior resection for rectal prolapse and is being closely monitored. Patient is currently maintained on a clear liquid diet and tolerating well with no reports of nausea or vomiting noted. Will titrate IV fluids and decrease them slightly. Surgical dressing at the incision site was reinforced by nursing staff as there was some minimal bleeding at her site. Dressing is currently dry and intact. Will continue to monitor closely. 05/19/2020 Patient is seen and evaluated in room at bedside; denies any specific complaints; vital signs remained stable; lab review shows an improved white blood count from 28,000 down to 20,000; surgery is following patient and recommending to increase activity and continue with clear liquid diet 05/20/2020 Patient is sitting up in bed and seems to be in no acute distress; had an episode of left upper extremity weakness this morning; stat CT of the head was done which did not show any acute changes; upper extremity weakness has since resolved; lab review shows a sodium of 129, WBC improved to 17.3 with a hemoglobin of 7.3; sodium has trended down from 138 on last lab draw down to 129; I will plan to start patient on slow IV fluid hydration with normal saline; recommend monitoring electrolytes closely; continue with plan of care to increase activity if possible discharge and cleared by surgery Objective - Vital Signs Vital signs: Vital Signs Temp 98.4 F 05/20/20 00:50 Pulse 112 H 05/20/20 00:50 Resp 20 05/20/20 00:50 BP 137/92 05/20/20 00:50 Pulse Ox 92 L 05/20/20 00:50 Intake & Output 05/19/20 05/20/20 05/20/20 18:59 06:59 18:59 Other: Voiding Method Toilet Toilet Toilet Diaper Diaper Diaper Incontinent Incontinent Incontinent # Voids 1 - Labs CBC & Chem 7: 05/20/20 07:53 05/20/20 07:53 Labs: Abnormal Lab Results - Last 24 Hours (Table) 05/20/20 05/20/20 Range/Units 07:53 07:53 WBC 17.3 H (3.8-10.6) k/uL RBC 3.30 L (3.80-5.40) m/uL Hgb 7.3 L (11.4-16.0) gm/dL Hct 25.1 L (34.0-46.0) % MCV 76.0 L (80.0-100.0) fL MCH 22.1 L (25.0-35.0) pg MCHC 29.1 L (31.0-37.0) g/dL RDW 20.6 H (11.5-15.5) % Neutrophils # 15.3 H (1.3-7.7) k/uL Sodium 129 L (137-145) mmol/L Calcium 8.2 L (8.4-10.2) mg/dL
[2020-05-20] MEDS: ATORVASTATIN 40 MG TAB PO SCH (20:49)
[2020-05-20] MEDS: LORazepam 0.5 MG TAB PO SCH (20:49)
[2020-05-20] MEDS: OLANZapine 2.5 MG TAB PO SCH (20:50)
[2020-05-21] MEDS: LEVOTHYROXINE 100 MCG TAB PO SCH (05:51)
[2020-05-21] MEDS: HEPARIN SODIUM,PORCINE 5,000 UNIT/ML 1 ML VIAL SQ SCH ×3 (07:36→23:32)
[2020-05-21] MEDS: LORazepam 0.5 MG TAB PO SCH ×2 (07:37→20:10)
[2020-05-21] MEDS: PANTOPRAZOLE 40 MG TABLET PO SCH (07:37)
[2020-05-21] MEDS: SERTRALINE 50 MG TAB PO SCH (07:37)
[2020-05-21] MEDS: D5-0.45% NACL WITH KCL 20MEQ/L 1,000 ML IV SCH ×2 (07:37→23:31)
[2020-05-21 08:33] LABS: African American GFR (CKD) >90 (>60 ml/min/1.73 sqM); Anion Gap 4 mmol/L; Blood Urea Nitrogen 4 mg/dL (7-17); Calcium 8.2 mg/dL (8.4-10.2); Carbon Dioxide 24 mmol/L (22-30); Chloride 107 mmol/L (98-107); Glucose 88 mg/dL (74-99); Non-African American GFR(CKD) >90 (>60 ml/min/1.73 sqM); Potassium 4.1 mmol/L (3.5-5.1); Sodium 135 mmol/L (137-145)
[2020-05-21 08:35] LABS: Anisocytosis Moderate; Basophils % (A) 0 %; Eosinophils % (A) 0 %; HGB 7.3 gm/dL (11.4-16.0); Hypochromasia Marked; Lymphocytes # (A) 1.1 k/uL (1.0-4.8); Lymphocytes % (A) 11 %; MCH 22.4 pg (25.0-35.0); MCHC 29.2 g/dL (31.0-37.0); MCV 76.9 fL (80.0-100.0); Mean Platelet Volume 8.5; Microcytosis Moderate; Monocytes # (A) 0.5 k/uL (0-1.0); Monocytes % (A) 6 %; Neutrophils % (A) 82 %; Platelet Count 246 k/uL (150-450); Poikilocytosis Moderate; RBC 3.25 m/uL (3.80-5.40); RDW 21.6 % (11.5-15.5); WBC 9.8 k/uL (3.8-10.6)
--- NOTE | 2020-05-21 11:28 | P.PN ---
Subjective Progress Note Date: 05/21/20 Principal diagnosis: Prolapse Patient doing better today. She is more alert. T-max 99.5. White blood cell count no normal. She is tolerating her clear liquids. She had 2 small bowel movements. She did have some serous drainage from the inferior aspect of her incision. Complaining of mild pain. Objective - Vital Signs Vital signs: Vital Signs Temp 99.5 F 05/21/20 07:00 Pulse 96 05/21/20 07:00 Resp 17 05/21/20 07:00 BP 131/82 05/21/20 07:00 Pulse Ox 95 05/21/20 07:00 Intake & Output 05/20/20 05/21/20 05/21/20 18:59 06:59 18:59 Intake Total 1080 200 Output Total 2 Balance 1080 198 Intake: Oral 1080 200 Output: Urine/Stool Mix 2 Other: Voiding Method Toilet Toilet Toilet Diaper Diaper Diaper Incontinent Incontinent Incontinent # Voids 4 1 # Bowel Movements 1 - Exam Abdomen: Soft, nondistended, incision with small amount of serous drainage at the inferior aspect, no erythema, minimal tenderness - Labs CBC & Chem 7: 05/21/20 07:05 05/21/20 07:05 Labs: Abnormal Lab Results - Last 24 Hours (Table) 05/21/20 05/21/20 Range/Units 07:05 07:05 RBC 3.25 L (3.80-5.40) m/uL Hgb 7.3 L (11.4-16.0) gm/dL Hct 25.0 L (34.0-46.0) % MCV 76.9 L (80.0-100.0) fL MCH 22.4 L (25.0-35.0) pg MCHC 29.2 L (31.0-37.0) g/dL RDW 21.6 H (11.5-15.5) % Neutrophils # 8.0 H (1.3-7.7) k/uL Sodium 135 L (137-145) mmol/L BUN 4 L (7-17) mg/dL Calcium 8.2 L (8.4-10.2) mg/dL Assessment and Plan (1) Rectal prolapse Narrative/Plan: Patient doing well today. Will increase diet. Monitor incisional drainage. Ambulate. Current Visit: Yes Status: Acute Code(s): K62.3 - RECTAL PROLAPSE SNOMED Code(s): 66832174
--- NOTE | 2020-05-21 14:39 | P.PN ---
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 Patient underwent colonoscopy today showed rectal prolapse and was admitted to the hospital for low anterior resection of rectal prolapse. Patient currently denied any complaints of chest pain or shortness of breath. No nausea vomiting or abdominal pain or diarrhea. Denies any worsening abdominal pain. No cough or sputum production. Patient is currently blood pressure was 156/65 and pulse 67 respiration 18 pulse ox 99% on room air. 05/17/2020 Patient is seen and evaluated and follow-up this morning currently awaiting to undergo lower anterior resection for rectal prolapse. No acute overnight issues noted. Patient denying any chest pain, shortness of breath, or palpitations. Patient is afebrile. No reports of nausea or vomiting and patient has been nothing by mouth this morning for the procedure. Will continue to follow along closely with surgery and await surgical report today. Will repeat a.m. labs and continue to monitor vital signs closely. Will monitor for postop hypotension and hold blood pressure medications at this time. 05/18/2020 Patient is seen and evaluated in follow-up currently sitting up in the chair with no acute overnight issues. Following along closely with surgery. Patient is status post lower anterior resection for rectal prolapse and is being closely monitored. Patient is currently maintained on a clear liquid diet and tolerating well with no reports of nausea or vomiting noted. Will titrate IV fluids and decrease them slightly. Surgical dressing at the incision site was reinforced by nursing staff as there was some minimal bleeding at her site. Dressing is currently dry and intact. Will continue to monitor closely. 05/19/2020 Patient is seen and evaluated in room at bedside; denies any specific complaints; vital signs remained stable; lab review shows an improved white blood count from 28,000 down to 20,000; surgery is following patient and recommending to increase activity and continue with clear liquid diet 05/20/2020 Patient is sitting up in bed and seems to be in no acute distress; had an episode of left upper extremity weakness this morning; stat CT of the head was done which did not show any acute changes; upper extremity weakness has since resolved; lab review shows a sodium of 129, WBC improved to 17.3 with a hemoglobin of 7.3; sodium has trended down from 138 on last lab draw down to 129; I will plan to start patient on slow IV fluid hydration with normal saline; recommend monitoring electrolytes closely; continue with plan of care to increase activity if possible discharge and cleared by surgery 05/21/2020 This is a 60-year-old female who was recently admitted status post colonoscopy and low anterior resection for rectal prolapse and is being closely monitored. Following along closely with surgery. Patient reportedly had 2 bowel movements and is tolerating clear liquid diet. Diet is being advanced today. patient continues to have some abdominal discomfort with some mild drainage noted at the surgical site. patient sodium is improved today and is currently 135 with a potassium of 4.1 a current creatinine of 0.54. White blood count is within normal limits and 9.8 today. Hemoglobin is stable at 7.3 with no active bleeding noted. Patient did have an episode of mild epistaxis which she states was due to her picking her nose and then started lightly bleeding. No active bleeding noted at this time on exam. Patient is cognitively delayed although alert and oriented 2-3. Patient is a resident at [facility] and plans to return there once stabilized and discharged. Case management and healthcare social worker are following and working on discharge planning needs. Early patient denies any nausea or vomiting and has been tolerating diet. Patient has some intermittent abdominal discomfort. No reports of chest pain, shortness of breath, or palpitations. Patient is afebrile. she is instructed to continue using incentive spirometer at least 10 times every hour while awake although needs direction and encouragement. Will repeat a.m. labs. Will continue to follow along closely with surgery. Objective - Vital Signs Vital signs: Vital Signs Temp 99.5 F 05/21/20 07:00 Pulse 96 05/21/20 07:00 Resp 17 05/21/20 07:00 BP 131/82 05/21/20 07:00 Pulse Ox 95 05/21/20 07:00 Intake & Output 05/20/20 05/21/20 05/21/20 18:59 06:59 18:59 Intake Total 1080 200 Output Total 2 Balance 1080 198 Intake: Oral 1080 200 Output: Urine/Stool Mix 2 Other: Voiding Method Toilet Toilet Toilet Diaper Diaper Diaper Incontinent Incontinent Incontinent # Voids 4 1 # Bowel Movements 1 - Exam GENERAL: this is a 60-year-old female sitting up in the chair awake, alert and oriented 2-3. Cognitively delayed. Well-developed, well-nourished. Temp is 99.5F, pulse is 96, respirations are 17, blood pressure is 131/82, oxygen saturation is 95% on room air. HEENT: Normocephalic. Neck is supple. Pupils reactive. Nostrils clear. Oral cavity is moist. Ears reveal no drainage. Neck: reveals no JVD, carotid bruits, or thyromegaly. CHEST EXAMINATION: Trachea is central. Symmetrical expansion. Lung coley clear to auscultation and percussion. CARDIAC: S1, S2 are muffled ABDOMEN: Soft. positive bowel sounds noted. No organomegaly. No abdominal bruits. Extremities: reveal no edema. No clubbing or cyanosis Neurologically awake, alert, oriented x2-3 with well-coordinated movements. No focal deficits noted Skin: No rash or skin lesions. - Labs CBC & Chem 7: 05/21/20 07:05 05/21/20 07:05 Labs: Abnormal Lab Results - Last 24 Hours (Table) 05/21/20 05/21/20 Range/Units 07:05 07:05 RBC 3.25 L (3.80-5.40) m/uL Hgb 7.3 L (11.4-16.0) gm/dL Hct 25.0 L (34.0-46.0) % MCV 76.9 L (80.0-100.0) fL MCH 22.4 L (25.0-35.0) pg MCHC 29.2 L (31.0-37.0) g/dL RDW 21.6 H (11.5-15.5) % Neutrophils # 8.0 H (1.3-7.7) k/uL Sodium 135 L (137-145) mmol/L BUN 4 L (7-17) mg/dL Calcium 8.2 L (8.4-10.2) mg/dL Assessment and Plan Assessment: Rectal prolapse. Status post low anterior resection of rectal prolapse Hypertension Elevated white blood count, most likely reactive Seizure disorder Hypothyroidism Dementia Anxiety/depression History of CVA/TIA no residual weakness History of alcohol abuse and associated dementia DVT prophylaxis GI prophylaxis Full code recommendations and discussion: Recommend to continue current medications, management, and symptomatic treatment. Will continue to follow along closely with surgery. Patient's diet is tolerated and being advanced to full liquids. Will repeat a.m. labs and monitor vital signs closely. Further recommendations to follow. Possible discharge in 24-48 hours to ECF where she resides. Case management and social work following working on discharge planning needs.
[2020-05-21] MEDS: ATORVASTATIN 40 MG TAB PO SCH (20:09)
[2020-05-21] MEDS: ACETAMINOPHEN TAB 325 MG TAB PO PRN (20:09)
[2020-05-21] MEDS: OLANZapine 2.5 MG TAB PO SCH (20:10)
[2020-05-22] MEDS: ACETAMINOPHEN TAB 325 MG TAB PO PRN ×2 (05:39→14:10)
[2020-05-22] MEDS: LEVOTHYROXINE 100 MCG TAB PO SCH (05:39)
[2020-05-22] MEDS: HEPARIN SODIUM,PORCINE 5,000 UNIT/ML 1 ML VIAL SQ SCH ×3 (08:17→23:59)
[2020-05-22] MEDS: PANTOPRAZOLE 40 MG TABLET PO SCH (08:17)
[2020-05-22] MEDS: SERTRALINE 50 MG TAB PO SCH (08:17)
[2020-05-22] MEDS: LORazepam 0.5 MG TAB PO SCH ×2 (08:17→20:47)
[2020-05-22 08:57] LABS: Anisocytosis Moderate; Basophils % (A) 1 %; Eosinophils % (A) 1 %; HCT 28.7 % (34.0-46.0); HGB 8.1 gm/dL (11.4-16.0); Hypochromasia Marked; Lymphocytes # (A) 1.1 k/uL (1.0-4.8); Lymphocytes % (A) 15 %; MCH 21.9 pg (25.0-35.0); MCHC 28.1 g/dL (31.0-37.0); MCV 77.9 fL (80.0-100.0); Mean Platelet Volume 8.2; Microcytosis Moderate; Monocytes # (A) 0.6 k/uL (0-1.0); Monocytes % (A) 7 %; Neutrophils # (A) 5.6 k/uL (1.3-7.7); Neutrophils % (A) 76 %; Platelet Count 266 k/uL (150-450); Poikilocytosis Moderate; RBC 3.69 m/uL (3.80-5.40); RDW 21.5 % (11.5-15.5); WBC 7.4 k/uL (3.8-10.6)
[2020-05-22 09:15] LABS: African American GFR (CKD) >90 (>60 ml/min/1.73 sqM); Anion Gap 6 mmol/L; Blood Urea Nitrogen 2 mg/dL (7-17); Calcium 8.5 mg/dL (8.4-10.2); Carbon Dioxide 24 mmol/L (22-30); Chloride 110 mmol/L (98-107); Glucose 102 mg/dL (74-99); Non-African American GFR(CKD) >90 (>60 ml/min/1.73 sqM); Potassium 3.7 mmol/L (3.5-5.1); Sodium 140 mmol/L (137-145)
[2020-05-22] MEDS ORDERED: SODIUM FERRIC GLUCONAT-SUCROSE 125 MG in SODIUM CHLORIDE 0.9% 100 ML IVPB ONE (13:30)
--- NOTE | 2020-05-22 14:05 | P.PN ---
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 Patient underwent colonoscopy today showed rectal prolapse and was admitted to the hospital for low anterior resection of rectal prolapse. Patient currently denied any complaints of chest pain or shortness of breath. No nausea vomiting or abdominal pain or diarrhea. Denies any worsening abdominal pain. No cough or sputum production. Patient is currently blood pressure was 156/65 and pulse 67 respiration 18 pulse ox 99% on room air. 05/17/2020 Patient is seen and evaluated and follow-up this morning currently awaiting to undergo lower anterior resection for rectal prolapse. No acute overnight issues noted. Patient denying any chest pain, shortness of breath, or palpitations. Patient is afebrile. No reports of nausea or vomiting and patient has been nothing by mouth this morning for the procedure. Will continue to follow along closely with surgery and await surgical report today. Will repeat a.m. labs and continue to monitor vital signs closely. Will monitor for postop hypotension and hold blood pressure medications at this time. 05/18/2020 Patient is seen and evaluated in follow-up currently sitting up in the chair with no acute overnight issues. Following along closely with surgery. Patient is status post lower anterior resection for rectal prolapse and is being closely monitored. Patient is currently maintained on a clear liquid diet and tolerating well with no reports of nausea or vomiting noted. Will titrate IV fluids and decrease them slightly. Surgical dressing at the incision site was reinforced by nursing staff as there was some minimal bleeding at her site. Dressing is currently dry and intact. Will continue to monitor closely. 05/19/2020 Patient is seen and evaluated in room at bedside; denies any specific complaints; vital signs remained stable; lab review shows an improved white blood count from 28,000 down to 20,000; surgery is following patient and recommending to increase activity and continue with clear liquid diet 05/20/2020 Patient is sitting up in bed and seems to be in no acute distress; had an episode of left upper extremity weakness this morning; stat CT of the head was done which did not show any acute changes; upper extremity weakness has since resolved; lab review shows a sodium of 129, WBC improved to 17.3 with a hemoglobin of 7.3; sodium has trended down from 138 on last lab draw down to 129; I will plan to start patient on slow IV fluid hydration with normal saline; recommend monitoring electrolytes closely; continue with plan of care to increase activity if possible discharge and cleared by surgery 05/21/2020 This is a 60-year-old female who was recently admitted status post colonoscopy and low anterior resection for rectal prolapse and is being closely monitored. Following along closely with surgery. Patient reportedly had 2 bowel movements and is tolerating clear liquid diet. Diet is being advanced today. patient continues to have some abdominal discomfort with some mild drainage noted at the surgical site. patient sodium is improved today and is currently 135 with a potassium of 4.1 a current creatinine of 0.54. White blood count is within normal limits and 9.8 today. Hemoglobin is stable at 7.3 with no active bleeding noted. Patient did have an episode of mild epistaxis which she states was due to her picking her nose and then started lightly bleeding. No active bleeding noted at this time on exam. Patient is cognitively delayed although alert and oriented 2-3. Patient is a resident at [facility] and plans to return there once stabilized and discharged. Case management and director social are following and working on discharge planning needs. Early patient denies any nausea or vomiting and has been tolerating diet. Patient has some intermittent abdominal discomfort. No reports of chest pain, shortness of breath, or palpitations. Patient is afebrile. she is instructed to continue using incentive spirometer at least 10 times every hour while awake although needs direction and encouragement. Will repeat a.m. labs. Will continue to follow along closely with surgery. 05/22/2020 Patient is seen and evaluated in follow-up appears to be in no acute distress. Patient recently underwent low anterior resection for rectal prolapse. Following closely with surgery. She continues to have bowel movements and is tolerating a full liquid diet. White blood count is within normal limits and 7.4 with a hemoglobin of 8.1. Sodium is 140 with a potassium of 3.7. Social work is following this patient is a return to [facility] [place] unstabilizing discharge. Patient continues to have some abdominal discomfort although cannot pinpoint the area and is stating it is generalized. Review of systems: Constitutional: Reports fatigue and chills, no reports of fevers Cardiovascular: No reports of chest pain or palpitations Respiratory: No reports of shortness of breath or cough GI: No reports of nausea, vomiting, or diarrhea, reports generalized abdominal discomfort : No reports of dysuria or retention Neurovascular: No reports of weakness or numbness All medications have been reviewed Objective - Vital Signs Vital signs: Vital Signs Temp 98.4 F 05/22/20 07:00 Pulse 81 05/22/20 07:00 Resp 18 05/22/20 07:00 BP 139/88 05/22/20 07:00 Pulse Ox 97 05/22/20 07:00 Intake & Output 05/21/20 05/22/20 05/22/20 18:59 06:59 18:59 Other: Voiding Method Toilet Toilet Toilet Diaper Diaper Diaper Incontinent Incontinent Incontinent # Voids 1 1 # Bowel Movements 1 2 - Exam GENERAL: this is a 60-year-old female lying in bed, awake, alert and oriented 2-3. Cognitively delayed. Well-developed, well-nourished. HEENT: Normocephalic. Neck is supple. Pupils reactive. Nostrils clear. Oral cavity is moist. Ears reveal no drainage. Neck: reveals no JVD, carotid bruits, or thyromegaly. CHEST EXAMINATION: Trachea is central. Symmetrical expansion. Lung coley clear to auscultation and percussion. CARDIAC: S1, S2 are muffled ABDOMEN: Soft. positive bowel sounds noted. No organomegaly. No abdominal bruits. Surgical dressing midline is dry and intact, abdomen is non-tender on palpation Extremities: reveal no edema. No clubbing or cyanosis Neurologically awake, alert, oriented x2-3 with well-coordinated movements. No focal deficits noted Skin: No rash or skin lesions. Multiple bruises noted to the right upper extremity and right thigh of different color variations - Labs CBC & Chem 7: 05/22/20 08:28 05/22/20 08:28 Labs: Abnormal Lab Results - Last 24 Hours (Table) 05/22/20 05/22/20 Range/Units 08: 08:28 RBC 3.69 L (3.80-5.40) m/uL Hgb 8.1 L (11.4-16.0) gm/dL Hct 28.7 L (34.0-46.0) % MCV 77.9 L (80.0-100.0) fL MCH 21.9 L (25.0-35.0) pg MCHC 28.1 L (31.0-37.0) g/dL RDW 21.5 H (11.5-15.5) % Chloride 110 H (98-107) mmol/L BUN 2 L (7-17) mg/dL Glucose 102 H (74-99) mg/dL Assessment and Plan Assessment: Rectal prolapse. Status post low anterior resection of rectal prolapse Hypertension Elevated white blood count, most likely reactive, approved Seizure disorder Hypothyroidism Dementia Anxiety/depression History of CVA/TIA no residual weakness History of alcohol abuse and associated dementia DVT prophylaxis GI prophylaxis Full code recommendations and discussion: Recommend to continue current medications, management, and symptomatic treatment. Will continue to follow along closely with surgery. Patient's diet is tolerated and having bowel movements. Will monitor vital signs closely. Further recommendations to follow. Possible discharge in 24-48 hours to ECF wh ere she resides. Case management and social work following working on discharge planning needs.
--- NOTE | 2020-05-22 14:20 | P.PN ---
Subjective Progress Note Date: 05/22/20 CHIEF COMPLAINT: Rectal prolapse HISTORY OF PRESENT ILLNESS: Patient is status post lower anterior resection for rectal prolapse. She is sleeping in bed comfortably. She did have 3 loose bowel movements. WBC normalized at 9.8 hemoglobin 7.3. She is afebrile PHYSICAL EXAM: VITAL SIGNS: Reviewed. GENERAL: Well-developed in no acute distress. HEENT: No sclera icterus. Extraocular movements grossly intact. Moist buccal mucosa. Head is atraumatic, normocephalic. ABDOMEN: Soft. Nondistended. Dressing clean dry and intact NEUROLOGIC: Alert and oriented. Cranial nerves II through XII grossly intact. ASSESSMENT: 1. Rectal prolapse status post lower anterior resection. 2. Anemia PLAN: -Give 1 dose of IV Iron for her anemia -Advance diet soft chopped diet -GI prophylaxis Protonix and DVT prophylaxis subcu heparin Physician Insecticide Sprayer note has been reviewed by physician. Signing provider agrees with the documented findings, assessment, and plan of care. Objective - Vital Signs Vital signs: Vital Signs Temp 98.4 F 05/22/20 07:00 Pulse 81 05/22/20 07:00 Resp 18 05/22/20 07:00 BP 139/88 05/22/20 07:00 Pulse Ox 97 05/22/20 07:00 Intake & Output 05/21/20 05/22/20 05/22/20 18:59 06:59 18:59 Other: Voiding Method Toilet Toilet Toilet Diaper Diaper Diaper Incontinent Incontinent Incontinent # Voids 1 1 # Bowel Movements 1 2 - Labs CBC & Chem 7: 05/22/20 08:28 05/22/20 08:28 Labs: Abnormal Lab Results - Last 24 Hours (Table) 05/22/20 05/22/20 Range/Units 08:28 08:28 RBC 3.69 L (3.80-5.40) m/uL Hgb 8.1 L (11.4-16.0) gm/dL Hct 28.7 L (34.0-46.0) % MCV 77.9 L (80.0-100.0) fL MCH 21.9 L (25.0-35.0) pg MCHC 28.1 L (31.0-37.0) g/dL RDW 21.5 H (11.5-15.5) % Chloride 110 H (98-107) mmol/L BUN 2 L (7-17) mg/dL Glucose 102 H (74-99) mg/dL
[2020-05-22] MEDS: D5-0.45% NACL WITH KCL 20MEQ/L 1,000 ML IV SCH (16:25)
[2020-05-22] MEDS: HYDROmorphone 0.5 MG/0.5 ML SYRINGE IVP PRN ×2 (16:25→23:58)
[2020-05-22] MEDS: OLANZapine 2.5 MG TAB PO SCH (20:47)
[2020-05-22] MEDS: ATORVASTATIN 40 MG TAB PO SCH (20:47)
[2020-05-23] MEDS: HYDROmorphone 0.5 MG/0.5 ML SYRINGE IVP PRN ×2 (04:37→07:46)
[2020-05-23] MEDS: LEVOTHYROXINE 100 MCG TAB PO SCH (05:48)
[2020-05-23] MEDS: HEPARIN SODIUM,PORCINE 5,000 UNIT/ML 1 ML VIAL SQ SCH (07:26)
[2020-05-23] MEDS: PANTOPRAZOLE 40 MG TABLET PO SCH (07:26)
[2020-05-23] MEDS: SERTRALINE 50 MG TAB PO SCH (07:26)
[2020-05-23 07:27] VITALS: BP 140/86; PULSE 72; RESP 18; TEMP 98.2
[2020-05-23] MEDS: LORazepam 0.5 MG TAB PO SCH (07:27)
[2020-05-23 10:12] LABS: Anisocytosis Moderate; Basophils % (A) 0 %; Eosinophils % (A) 0 %; HCT 28.7 % (34.0-46.0); HGB 8.2 gm/dL (11.4-16.0); Hypochromasia Marked; Lymphocytes # (A) 1.2 k/uL (1.0-4.8); Lymphocytes % (A) 13 %; MCH 22.1 pg (25.0-35.0); MCHC 28.6 g/dL (31.0-37.0); MCV 77.5 fL (80.0-100.0); Mean Platelet Volume 8.5; Microcytosis Moderate; Monocytes # (A) 0.6 k/uL (0-1.0); Monocytes % (A) 6 %; Neutrophils # (A) 7.4 k/uL (1.3-7.7); Neutrophils % (A) 80 %; Platelet Count 327 k/uL (150-450); Poikilocytosis Moderate; RDW 22.3 % (11.5-15.5); WBC 9.3 k/uL (3.8-10.6)
[2020-05-23 10:17] LABS: African American GFR (CKD) >90 (>60 ml/min/1.73 sqM); Anion Gap 6 mmol/L; Blood Urea Nitrogen 3 mg/dL (7-17); Calcium 8.7 mg/dL (8.4-10.2); Carbon Dioxide 26 mmol/L (22-30); Chloride 103 mmol/L (98-107); Glucose 108 mg/dL (74-99); Non-African American GFR(CKD) >90 (>60 ml/min/1.73 sqM); Sodium 135 mmol/L (137-145)
--- NOTE | 2020-05-23 12:11 | P.DS ---
Providers Date of admission: 05/17/20 12:57 Expected date of discharge: 05/23/20 Attending physician: Gregory Mims Consults: 05/16/20 14:09 Consult Physician Routine Consulting Provider: Nusrat Jalloh Consult Reason/Comments: Medical management Do you want consulting provider notified?: Yes Primary care physician: Matt Vallecillosan j[facility]eric [facility] Course: Discharge diagnosis 1. Rectal prolapse status post lower anterior resection. 2. Iron deficiency Anemia Hospital course This is a patient who had colonoscopy completed showing a rectal prolapse. She then was admitted to the hospital and underwent a lower anterior resection with Dr. Mims. Patient tolerated surgery well. She is having bowel movements. She is tolerating diet. Pain is controlled. She's up and ambulating. She is afebrile. Patient stable for discharge. Please chart for any further details. Physician Outsole Scheduler note has been reviewed by physician. Signing provider agrees with the documented findings, assessment, and plan of care. Patient Condition at Discharge: Stable Plan - Discharge Summary Discharge Rx Participant: Yes New Discharge Prescriptions: New Docusate [Colace] 100 mg PO BID #30 capsule Hydrocodone/Acetaminophen [Temple 5-325] 1 tab PO Q6HR PRN 3 Days #12 tab PRN Reason: Pain Continue Levothyroxine Sodium [Synthroid] 100 mcg PO QAM Acetaminophen Tab [Tylenol] 650 mg PO Q4H PRN PRN Reason: Pain Or Fever > 100.5 bisacodyL [Bisacodyl] 10 mg RECTAL DAILY PRN PRN Reason: Constipation Sertraline HCl [Zoloft] 150 mg PO DAILY Hydrocortisone Suppository [Anusol-Hc] 1 supp RECTAL DAILY PRN PRN Reason: Hemorrhoids OLANZapine [ZyPREXA] 2.5 mg PO HS Lansoprazole [Prevacid] 15 mg PO QAM lisinopriL [Zestril] 5 mg PO HS Atorvastatin [Lipitor] 40 mg PO HS Loperamide [Imodium] 2 mg PO QID PRN PRN Reason: Loose Stool Fiber Powder 20 ml PO BID levETIRAcetam [Keppra] 750 mg PO BID@0700,1600 LORazepam [Ativan] 0.5 mg PO BID #6 tab Changed Polyethylene Glycol 3350 [Clearlax] 17 gram PO DAILY PRN #0 PRN Reason: Constipation Discharge Medication List Levothyroxine Sodium [Synthroid] 100 mcg PO QAM 05/21/16 [History] Acetaminophen Tab [Tylenol] 650 mg PO Q4H PRN 03/13/17 [History] bisacodyL [Bisacodyl] 10 mg RECTAL DAILY PRN 03/13/17 [History] Sertraline HCl [Zoloft] 150 mg PO DAILY 04/20/19 [History] Atorvastatin [Lipitor] 40 mg PO HS 05/11/20 [History] Hydrocortisone Suppository [Anusol-Hc] 1 supp RECTAL DAILY PRN 05/11/20 [History] Lansoprazole [Prevacid] 15 mg PO QAM 05/11/20 [History] Loperamide [Imodium] 2 mg PO QID PRN 05/11/20 [History] OLANZapine [ZyPREXA] 2.5 mg PO HS 05/11/20 [History] lisinopriL [Zestril] 5 mg PO HS 05/11/20 [History] Fiber Powder 20 ml PO BID 05/12/20 [History] levETIRAcetam [Keppra] 750 mg PO BID@0700,1600 05/12/20 [History] Docusate [Colace] 100 mg PO BID #30 capsule 05/23/20 [Rx] Hydrocodone/Acetaminophen [Temple 5-325] 1 tab PO Q6HR PRN 3 Days #12 tab 05/23/20 [Rx] LORazepam [Ativan] 0.5 mg PO BID #6 tab 05/23/20 [Rx] Polyethylene Glycol 3350 [Clearlax] 17 gram PO DAILY PRN #0 05/23/20 [Rx] Follow up Appointment(s)/Referral(s): Gregory Mims MD [STAFF PHYSICIAN] - 1 Week Activity/Diet/Wound Care/Special Instructions: No driving while taking Temple No lifting over 10 pounds You may shower. No soaking or tub baths for 2 weeks Very light activity until you are reevaluated at your follow up appointment with your surgeon Okay to transfer back to [facility] Discharge Disposition: TRANSFER TO [facility]
[2020-05-23] MEDS: D5-0.45% NACL WITH KCL 20MEQ/L 1,000 ML IV SCH ×2 (12:59)
--- NOTE | 2020-05-23 13:03 | P.PN ---
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 Patient underwent colonoscopy today showed rectal prolapse and was admitted to the hospital for low anterior resection of rectal prolapse. Patient currently denied any complaints of chest pain or shortness of breath. No nausea vomiting or abdominal pain or diarrhea. Denies any worsening abdominal pain. No cough or sputum production. Patient is currently blood pressure was 156/65 and pulse 67 respiration 18 pulse ox 99% on room air. 05/17/2020 Patient is seen and evaluated and follow-up this morning currently awaiting to undergo lower anterior resection for rectal prolapse. No acute overnight issues noted. Patient denying any chest pain, shortness of breath, or palpitations. Patient is afebrile. No reports of nausea or vomiting and patient has been nothing by mouth this morning for the procedure. Will continue to follow along closely with surgery and await surgical report today. Will repeat a.m. labs and continue to monitor vital signs closely. Will monitor for postop hypotension and hold blood pressure medications at this time. 05/18/2020 Patient is seen and evaluated in follow-up currently sitting up in the chair with no acute overnight issues. Following along closely with surgery. Patient is status post lower anterior resection for rectal prolapse and is being closely monitored. Patient is currently maintained on a clear liquid diet and tolerating well with no reports of nausea or vomiting noted. Will titrate IV fluids and decrease them slightly. Surgical dressing at the incision site was reinforced by nursing staff as there was some minimal bleeding at her site. Dressing is currently dry and intact. Will continue to monitor closely. 05/19/2020 Patient is seen and evaluated in room at bedside; denies any specific complaints; vital signs remained stable; lab review shows an improved white blood count from 28,000 down to 20,000; surgery is following patient and recommending to increase activity and continue with clear liquid diet 05/20/2020 Patient is sitting up in bed and seems to be in no acute distress; had an episode of left upper extremity weakness this morning; stat CT of the head was done which did not show any acute changes; upper extremity weakness has since resolved; lab review shows a sodium of 129, WBC improved to 17.3 with a hemoglobin of 7.3; sodium has trended down from 138 on last lab draw down to 129; I will plan to start patient on slow IV fluid hydration with normal saline; recommend monitoring electrolytes closely; continue with plan of care to increase activity if possible discharge and cleared by surgery 05/21/2020 This is a 60-year-old female who was recently admitted status post colonoscopy and low anterior resection for rectal prolapse and is being closely monitored. Following along closely with surgery. Patient reportedly had 2 bowel movements and is tolerating clear liquid diet. Diet is being advanced today. patient continues to have some abdominal discomfort with some mild drainage noted at the surgical site. patient sodium is improved today and is currently 135 with a potassium of 4.1 a current creatinine of 0.54. White blood count is within normal limits and 9.8 today. Hemoglobin is stable at 7.3 with no active bleeding noted. Patient did have an episode of mild epistaxis which she states was due to her picking her nose and then started lightly bleeding. No active bleeding noted at this time on exam. Patient is cognitively delayed although alert and oriented 2-3. Patient is a resident at [facility] and plans to return there once stabilized and discharged. Case management and case management social worker are following and working on discharge planning needs. Early patient denies any nausea or vomiting and has been tolerating diet. Patient has some intermittent abdominal discomfort. No reports of chest pain, shortness of breath, or palpitations. Patient is afebrile. she is instructed to continue using incentive spirometer at least 10 times every hour while awake although needs direction and encouragement. Will repeat a.m. labs. Will continue to follow along closely with surgery. 05/22/2020 Patient is seen and evaluated in follow-up appears to be in no acute distress. Patient recently underwent low anterior resection for rectal prolapse. Following closely with surgery. She continues to have bowel movements and is tolerating a full liquid diet. White blood count is within normal limits and 7.4 with a hemoglobin of 8.1. Sodium is 140 with a potassium of 3.7. Social work is following this patient is a return to [facility] [place] unstabilizing discharge. Patient continues to have some abdominal discomfort although cannot pinpoint the area and is stating it is generalized. Review of systems: Constitutional: Reports fatigue and chills, no reports of fevers Cardiovascular: No reports of chest pain or palpitations Respiratory: No reports of shortness of breath or cough GI: No reports of nausea, vomiting, or diarrhea, reports generalized abdominal discomfort : No reports of dysuria or retention Neurovascular: No reports of weakness or numbness All medications have been reviewed 05/23/2020 Patient is seen in follow-up today with no acute overnight issues. Patient recently underwent low anterior resection for rectal prolapse and is being closely monitored. Following along closely with surgery. Patient is tolerating diet and has been advanced. Discussed with surgery and patient will be discharged back to [facility] today. Currently patient has no chest pain, shortness of breath, or palpitations. Patient is afebrile. No reports of nausea or vomiting and patient is tolerating diet. Patient surgical dressing is dry and intact and states she has some mild intermittent abdominal soreness which is to be expected status post surgery. Encouraged patient to continue using incentive spirometer at least 10 times every hour while awake. Objective - Vital Signs Vital signs: Vital Signs Temp 98.2 F 05/23/20 07:10 Pulse 72 05/23/20 07:10 Resp 18 05/23/20 07:10 BP 140/86 05/23/20 07:10 Pulse Ox 98 05/23/20 07:10 Intake & Output 05/22/20 05/23/20 05/23/20 18:59 06:59 18:59 Other: Voiding Method Toilet Diaper Incontinent # Voids 2 1 # Bowel Movements 2 - Exam GENERAL: this is a 60-year-old female sitting up in the chair, awake, alert and oriented 2-3. Cognitively delayed. Well-developed, well-nourished. HEENT: Normocephalic. Neck is supple. Pupils reactive. Nostrils clear. Oral cavity is moist. Ears reveal no drainage. Neck: reveals no JVD, carotid bruits, or thyromegaly. CHEST EXAMINATION: Trachea is central. Symmetrical expansion. Lung coley clear to auscultation and percussion. CARDIAC: S1, S2 are muffled ABDOMEN: Soft. positive bowel sounds noted. No organomegaly. No abdominal bruits. Surgical dressing midline is dry and intact, abdomen is non-tender on palpation Extremities: reveal no edema. No clubbing or cyanosis Neurologically awake, alert, oriented x2-3 with well-coordinated movements. No focal deficits noted Skin: No rash or skin lesions. Multiple bruises noted to the right upper extremity and right thigh of different color variations - Labs CBC & Chem 7: 05/23/20 09:29 05/23/20 09:29 Labs: Abnormal Lab Results - Last 24 Hours (Table) 05/23/20 05/23/20 Range/Units : 09:29 RBC 3.70 L (3.80-5.40) m/uL Hgb 8.2 L (11.4-16.0) gm/dL Hct 28.7 L (34.0-46.0) % MCV 77.5 L (80.0-100.0) fL MCH 22.1 L (25.0-35.0) pg MCHC 28.6 L (31.0-37.0) g/dL RDW 22.3 H (11.5-15.5) % Sodium 135 L (137-145) mmol/L BUN 3 L (7-17) mg/dL Glucose 108 H (74-99) mg/dL Assessment and Plan Assessment: Rectal prolapse. Status post low anterior resection of rectal prolapse Hypertension Elevated white blood count, most likely reactive, improved Seizure disorder Hypothyroidism Dementia Anxiety/depression History of CVA/TIA no residual weakness History of alcohol abuse and associated dementia DVT prophylaxis GI prophylaxis Full code recommendations and discussion: Recommend to continue current medications, management, and symptomatic treatment. Will continue to follow along closely with surgery during hospitalization. Patient's diet is tolerated and having bowel movements. Encourage incentive spirometer use at least 10 times every hour while awake. Will monitor vital signs closely. Further recommendations to follow. Patient is being discharged today to [facility].
--- NOTE | 2020-06-05 09:46 | P.OP ---
Date of Procedure: 05/16/20 Preoperative Diagnosis: Rectal prolapse Postoperative Diagnosis: Rectal prolapse, diverticulosis Procedure(s) Performed: Colonoscopy Anesthesia: MAC Surgeon: Gregory Mims Pathology: none sent Condition: stable Disposition: PACU Description of Procedure: The patient's placed on the endoscopy table lateral position. She received IV sedation. Digital rectal wasn't performed which revealed a few external hemorrhoid. The possible colonoscope was then placed patient anus and passed with colon. The ileocecal valve sutures. The cecum, ascending and transverse colon appeared normal. In the descending; there were diverticular changes. The; was quite redundant. Scope was then brought back the rectum this appeared normal. Scope was withdrawn from the patient..
== END 2020-05-23 15:15 | DRG 331 ==
LOC: ORWHC2ENDO 12:42 → 4SSUR 14:42 → ORWHC2ENDO 05-17 12:57 → 4SSUR 05-17 12:57
PROVIDERS: ADMIT Surgery; ATTEND Surgery
PROC: 0DJD8ZZ Inspection of Lower Intestinal Tract, Via Natural or Artificial Opening Endoscopic (ICD-10-PCS; 2020-05-16)
PROC: 0DTP0ZZ Resection of Rectum, Open Approach (ICD-10-PCS; principal; 2020-05-17 10:35)
PROC: 0DBN0ZZ Excision of Sigmoid Colon, Open Approach (ICD-10-PCS; principal; 2020-05-17 10:35)
PROC: 0DJD8ZZ Inspection of Lower Intestinal Tract, Via Natural or Artificial Opening Endoscopic (ICD-10-PCS; principal; 2020-05-17 10:35)
DX: K62.3 Rectal prolapse (principal); G31.2 Degeneration of nervous system due to alcohol; F22 Delusional disorders; F02.80 Dementia in other diseases classified elsewhere, unspecified severity, without behavioral disturbance, psychotic disturbance, mood disturbance, and anxiety; G40.909 Epilepsy, unspecified, not intractable, without status epilepticus; E03.9 Hypothyroidism, unspecified; K64.4 Residual hemorrhoidal skin tags; K57.30 Diverticulosis of large intestine without perforation or abscess without bleeding; F41.9 Anxiety disorder, unspecified; I10 Essential (primary) hypertension; D50.9 Iron deficiency anemia, unspecified; F32.9 Major depressive disorder, single episode, unspecified; F10.11 Alcohol abuse, in remission; R32 Unspecified urinary incontinence; R04.0 Epistaxis; K59.00 Constipation, unspecified; Z79.890 Hormone replacement therapy; Z79.899 Other long term (current) drug therapy; Z86.73 Personal history of transient ischemic attack (TIA), and cerebral infarction without residual deficits; Z87.440 Personal history of urinary (tract) infections
CPT/HCPCS: 45378; 70450; 80048; 85025; 85027; 85610; 86850; 86900; 86901; 88307; 94760

== ENCOUNTER → 2021-04-22 | Outpatient (CLI) | payer OTHER | END | disposition home or self-care (01) | LOC: LABWHC1 12:36 | PROVIDERS: ATTEND Internal Medicine | DX: F10.10 Alcohol abuse, uncomplicated (principal) | CPT/HCPCS: 36415; 82140 ==

== ENCOUNTER 2024-03-11 06:48 | Inpatient (IN) | payer MEDICARE, OTHER ==
--- NOTE | 2024-03-11 07:08 | ED ---
Fall HPI - General Chief Complaint: Fall Stated Complaint: Fall Time Seen by Provider: 03/11/24 06:50 Source: patient, EMS, RN notes reviewed Mode of arrival: EMS Limitations: physical limitation - History of Present Illness Initial Comments: This is a 63-year-old female who presents to the emergency department for a fall. Patient has alcohol induced dementia and lives at [facility]. She slipped in the bathroom last night around 11 PM and landed on her left hip. She did not hit her head or sustain any loss of consciousness. Because this was not originally thought to be a severe injury, they did not call EMS and planned on doing imaging today. However, patient started to complain of increasing pain to the left hip and was unable to ambulate, prompting them to call EMS to bring her to the emergency department. She is a very poor historian, but does continue to complain of pain at this location. Denies any pain elsewhere. MD Complaint: fall - Related Data Home Medications Medication Instructions Recorded Confirmed Levothyroxine Sodium [Synthroid] 100 mcg PO DAILY@0500 05/21/16 03/11/24 Sertraline HCl [Zoloft] 150 mg PO DAILY 04/20/19 03/11/24 lisinopriL [Zestril] 5 mg PO HS 05/11/20 03/11/24 levETIRAcetam [Keppra] 750 mg PO BID@0700,1600 05/12/20 03/11/24 Acetaminophen Tab [Tylenol Tab] 500 mg PO Q8H PRN 03/11/24 03/11/24 Atorvastatin [Lipitor] 20 mg PO HS 03/11/24 03/11/24 Divalproex Sodium [Depakote] 125 mg PO BID 03/11/24 03/11/24 LORazepam [Ativan] 0.5 mg PO BID 03/11/24 03/11/24 amLODIPine [Norvasc] 5 mg PO HS 03/11/24 03/11/24 Allergies Allergy/AdvReac Type Severity Reaction Status Date / Time No Known Allergies Allergy Verified 03/11/24 09:15 Review of Systems ROS Statement: Those systems with pertinent positive or pertinent negative responses have been documented in the HPI. ROS Other: All systems not noted in ROS Statement are negative. Past Medical History Past Medical History: CVA/TIA, Dementia, Hypertension, Seizure Disorder Additional Past Medical History / Comment(s): RECTAL PROLAPSE. Uses w/c, able to stand to transfer, incontinent,alcohol induced dementia, CVA without residual, last seizure unknown, UTI hypothyroidism, History of Any Multi-Drug Resistant Organisms: Unobtainable Past Surgical History: Unable to Obtain Additional Past Surgical History / Comment(s): PAIN CLINIC PROCEDURE -04/25/19. UNABLE TO OBTAIN PAST SURGICAL HX Past Anesthesia/Blood Transfusion Reactions: Unable to Obtain Additional Past Anesthesia/Blood Transfusion Reaction / Comment(s): unknown anesthesia hx Past Psychological History: Anxiety, Depression Smoking Status: Never smoker Past Alcohol Use History: None Reported, Abuse Past Drug Use History: None Reported - Past Family History Father Family Medical History: Unable to Obtain Mother Family Medical History: Unable to Obtain General Exam Limitations: altered mental status, physical limitation General appearance: alert, in no apparent distress Head exam: Present: atraumatic, normocephalic, normal inspection Respiratory exam: Present: normal lung sounds bilaterally. Absent: respiratory distress, wheezes, rales, rhonchi, stridor Cardiovascular Exam: Present: regular rate, normal rhythm, normal heart sounds. Absent: systolic murmur, diastolic murmur, rubs, gallop, clicks Extremities exam: Present: other (Mild external rotation of the left lower extremity. Patient unable to move leg secondary to pain. 2+ DP and PT pulses.) Neurological exam: Present: alert, oriented X3, CN II-XII intact Psychiatric exam: Present: normal affect, normal mood Skin exam: Present: warm, dry, intact, normal color. Absent: rash Course Vital Signs 03/11/24 03/11/24 03/11/24 06:49 08:00 10:08 Temperature 98.3 F 97.9 F Pulse Rate 61 60 59 L Respiratory 16 16 14 Rate Blood Pressure 132/79 125/68 135/76 O2 Sat by Pulse 100 100 98 Oximetry 03/11/24 03/11/24 03/11/24 12:02 13:07 14:14 Temperature 97.8 F Pulse Rate 52 L 58 L 64 Respiratory 14 14 14 Rate Blood Pressure 132/72 132/75 141/76 O2 Sat by Pulse 99 99 99 Oximetry Medical Decision Making - Medical Decision Making This is a 63 year old female who presents to the emergency department for left hip pain after a fall. Was pt. sent in by a medical professional or institution? @ -No Did you speak to anyone other than the patient for history? @ -EMS provided the majority of the history. Did you review nursing and triage notes? @ -Yes, and I agree, it is accurate with regards to the patient's symptoms. Were old charts reviewed? @ -No Differential Diagnosis? @ -Differential Musculoskeletal: Muscular strain, contusion, ligament sprain, fracture, arthritis, septic arthritis, bursitis, cellulitis, muscle spasm, nerve compression, DVT, arterial occlusion, herpes zoster, electrolyte abnormality, tumor.... This is not meant to be in all inclusive list EKG interpreted by me (3pts min.)? @ -EKG interpreted by me demonstrating the following: Sinus bradycardia. Ventricular rate 52 bpm, RI interval 154 ms, QRS duration 94 ms, QTc 415 ms. X-rays interpreted by me (1pt min.)? @ -Chest x-ray obtained, my interpretation identifies no localized consolidations or infiltrates. X-ray of the left hip and pelvis obtained. My interpretation identifies no evidence of a femoral neck fracture. CT interpreted by me (1pt min.)? @ -CT scan of the pelvis obtained. My interpretation identifies a left proximal femur fracture. U/S interpreted by me (1pt. min.)? @ -None obtained What testing was considered but not performed? (CT, X-rays, U/S, labs)? Why? @ -None What meds were considered but not given? Why? @ -None Did you discuss the management of the patient with other professionals? @ -Yes, Dr. Chahal, who requested keeping the patient NPO and contacting internal medicine for surgical clearance in anticipation for surgical in tervention later today. Did you reconcile home meds? @ -Yes Was smoking cessation discussed for >3mins.? @ -No Was critical care preformed (if so, how long)? @ -No Were there social determinants of health that impacted care today? How? (Homelessness, low income, unemployed, alcoholism, drug addiction, transp ortation, low edu. Level, literacy, decrease access to med. care, snf, rehab)? @ -No Was there de-escalation of care discussed even if they declined? (Discuss DNR or withdrawal of care, Hospice)? @ -No What co-morbidities impacted this encounter? (DM, HTN, Smoking, COPD, CAD, Cancer, CVA, Hep., AIDS, mental health diagnosis, sleep apnea, morbid obesity)? @ -Dementia Was patient admitted / discharged? @ -Admitted. We initially obtained x-rays of the left hip and pelvis, however the degree of osteopenia significantly limited the assessment. They did not see any obvious displaced fracture. Patient did have substantial pain with limited range of motion and inability to ambulate. We subsequently proceeded with a CT scan of the pelvis. CT scan of the pelvis demonstrates a left proximal femur intertrochanteric fracture with mild displacement. She also has a large bony fragment from prior right inferior pubic ramus that closely approximates the right femoral neck. Advised correlation for fracture as well. Case discussed with Dr. Chahal, orthopedics, who requested keeping the patient n.p.o. and consulting medicine for clearance for surgical intervention later today. We did obtain lab work, an EKG, and chest x-ray which were all fairly unremarkable. Given the patient's dementia she was unsure if she had eaten anything today. I spoke with nursing staff at [facility], who advised that the patient only had a small sip of water with her thyroid medication this morning but has not had an ything to eat. Internal medicine was [facility] regarding admission for urgent surgical clearance. Undiagnosed new problem with uncertain prognosis? @ -None Drug Therapy requiring intensive monitoring for toxicity (Heparin, Nitro, Insulin, Cardizem)? @ -None Were any procedures done? @ -None Diagnosis/symptom? @ -Fall, left proximal femur intertrochanteric fracture Acute, or Chronic, or Acute on Chronic? @ -Acute Uncomplicated (without systemic symptoms) or Complicated (systemic symptoms)? @ -Uncomplicated Side effects of treatment? @ -None Exacerbation, Progression, or Severe Exacerbation] @ -Not applicable Poses a threat to life or bodily function? @ -Yes, this will limit patient's ability to ambulate. This case was discussed in detail with the attending ED physician, Dr. Gomez. Presentation, findings, and treatment plan discussed in detail as well. - Lab Data Result diagrams: 03/11/24 07:31 03/11/24 07:31 Lab Results 03/11/24 03/11/24 03/11/24 Range/Units 07:31 07:31 07:31 WBC 10.8 H (3.8-10.6) k/uL RBC 4.22 (3.80-5.40) m/uL Hgb 13.0 (11.4-16.0) gm/dL Hct 40.3 (34.0-46.0) % MCV 95.4 (80.0-100.0) fL MCH 30.8 (25.0-35.0) pg MCHC 32.3 (31.0-37.0) g/dL RDW 11.9 (11.5-15.5) % Plt Count 160 (150-450) k/uL MPV 7.7 Neutrophils % 81 % Lymphocytes % 12 % Monocytes % 6 % Eosinophils % 1 % Basophils % 0 % Neutrophils # 8.8 H (1.3-7.7) k/uL Lymphocytes # 1.3 (1.0-4.8) k/uL Monocytes # 0.6 (0-1.0) k/uL Eosinophils # 0.1 (0-0.7) k/uL Basophils # 0.0 (0-0.2) k/uL PT 10.3 (10.0-12.5) sec INR 0.9 (<1.2) APTT 23.5 (22.0-30.0) sec Sodium 134 L (137-145) mmol/L Potassium 4.1 (3.5-5.1) mmol/L Chloride 101 (98-107) mmol/L Carbon Dioxide 29 (22-30) mmol/L Anion Gap 4 mmol/L BUN 13 (7-17) mg/dL Creatinine 0.50 L (0.52-1.04) mg/dL Est GFR (CKD-EPI)AfAm >90 (>60 ml/min/1.73 sqM) Est GFR (CKD-EPI)NonAf >90 (>60 ml/min/1.73 sqM) Glucose 106 H (74-99) mg/dL Calcium 9.2 (8.4-10.2) mg/dL Total Bilirubin 0.7 (0.2-1.3) mg/dL AST 27 (14-36) U/L ALT 17 (4-34) U/L Alkaline Phosphatase 58 (38-126) U/L Total Protein 6.9 (6.3-8.2) g/dL Albumin 4.3 (3.5-5.0) g/dL - Radiology Data Radiology results: report reviewed, image reviewed Disposition Clinical Impression: Fall, Fracture, intertrochanteric, left femur Disposition: ADMITTED IP TO THIS HOSP
--- NOTE | 2024-03-11 08:00 | XR ---
EXAMINATION TYPE: XR chest 2V DATE OF EXAM: 03/11/2024 COMPARISON: 03/13/2017 HISTORY: 63-year-old female trauma after fall, pain TECHNIQUE: AP and lateral views FINDINGS: The cardiomediastinal silhouette, aorta, and pulmonary vasculature are within normal limits. Old bila teral rib fracture deformities. Strandy atelectasis at the left base. No consolidation or pleural eff usion. IMPRESSION: No acute cardiopulmonary process.
--- NOTE | 2024-03-11 08:02 | XR ---
EXAMINATION TYPE: XR Hip 2 views LT and AP Pelvis DATE OF EXAM: 03/11/2024 Comparison: None Clinical History: 63-year-old female with pain after trauma, Fall Findings: Osteopenia. There are old fracture deformities involving the right superior and inferior pubic rami. Mild degenerative joint space narrowing at both hips. No displaced fracture is seen. Impression: The degree of osteopenia significantly limits the assessment. No displaced fracture is seen. If guillermina rn for an occult fracture were if the patient is nonweightbearing, MRI can provide more sensitive salas luation. Old healed fracture deformities of the right superior and inferior pubic rami.
[2024-03-11 08:42] LABS: Basophils % (A) 0 %; Eosinophils # (A) 0.1 k/uL (0-0.7); Eosinophils % (A) 1 %; HCT 40.3 % (34.0-46.0); Lymphocytes # (A) 1.3 k/uL (1.0-4.8); Lymphocytes % (A) 12 %; MCH 30.8 pg (25.0-35.0); MCHC 32.3 g/dL (31.0-37.0); MCV 95.4 fL (80.0-100.0); Mean Platelet Volume 7.7; Monocytes # (A) 0.6 k/uL (0-1.0); Monocytes % (A) 6 %; Neutrophils # (A) 8.8 k/uL (1.3-7.7); Neutrophils % (A) 81 %; Platelet Count 160 k/uL (150-450); RBC 4.22 m/uL (3.80-5.40); RDW 11.9 % (11.5-15.5); WBC 10.8 k/uL (3.8-10.6)
[2024-03-11 08:48] LABS: ALT 17 U/L (4-34); AST 27 U/L (14-36); African American GFR (CKD) >90 (>60 ml/min/1.73 sqM); Albumin 4.3 g/dL (3.5-5.0); Alkaline Phosphatase 58 U/L (38-126); Anion Gap 4 mmol/L; Blood Urea Nitrogen 13 mg/dL (7-17); Calcium 9.2 mg/dL (8.4-10.2); Carbon Dioxide 29 mmol/L (22-30); Chloride 101 mmol/L (98-107); Glucose 106 mg/dL (74-99); Non-African American GFR(CKD) >90 (>60 ml/min/1.73 sqM); Potassium 4.1 mmol/L (3.5-5.1); Sodium 134 mmol/L (137-145); Total Bilirubin 0.7 mg/dL (0.2-1.3); Total Protein 6.9 g/dL (6.3-8.2)
--- NOTE | 2024-03-11 08:57 | CT ---
EXAMINATION TYPE: CT pelvis wo con CT DLP: 328.7 mGycm, Automated exposure control for dose reduction was used. DATE OF EXAM: 03/11/2024 8:27 AM COMPARISON: Plain film 03/11/2024. CLINICAL INDICATION:Female, 63 years old with history of Left hip pain after fall; Fall, Lt hip pain TECHNIQUE: Axial CT pelvis wo con;Sagittal and coronal reformats were created on a separate workstat ion. Contrast used: mL of , (none if empty) Oral contrast used: without Oral Contrast (none if empty) FINDINGS: PELVIS BLADDER: Unremarkable REPRODUCTIVE: Unremarkable. ABDOMEN & PELVIS STOMACH AND BOWEL: No evidence of bowel obstruction. Suture in the sigmoid colon. PERITONEUM/RETROPERITONEUM: No evidence of pneumoperitoneum or free fluid. VASCULATURE: No evidence of aortic aneurysm. MUSCULOSKELETAL: Grade 1 anterolisthesis of L5 on S1 with facet joint arthropathy. There is an acute fracture through the proximal left femur intertrochanteric fracture which is nondisplaced. Large bony fragment from prior right inferior pubic ramus closely approximates the right femoral neck within 5 mm. LYMPH NODES: No gross evidence for lymphadenopathy. SOFT TISSUE/ABDOMINAL WALL: Unremarkable IMPRESSION: 1. Left proximal femur intertrochanteric fracture which is minimally displaced. 2. Remote fracture of the right superior and inferior pubic ramus. 3. Large bony fragment from prior right inferior pubic ramus closely approximates the right femoral neck correlate for future
[2024-03-11 09:02] LABS: INR 0.9 (<1.2); Partial Thromboplastin Time 23.5 sec (22.0-30.0); Prothrombin Time 10.3 sec (10.0-12.5)
[2024-03-11] MEDS ORDERED: MORPHINE SULFATE 4 MG/ML SYRINGE IV PRN (09:29)
[2024-03-11] MEDS ORDERED: ACETAMINOPHEN TAB 325 MG TAB PO PRN (09:29)
[2024-03-11] MEDS ORDERED: ONDANSETRON 4 MG/2 ML VIAL IVP PRN (09:29)
[2024-03-11] MEDS ORDERED: NALOXONE 0.4 MG/ML 1 ML VIAL IV PRN ×2 (09:29→17:29)
[2024-03-11] MEDS ORDERED: ACETAMINOPHEN TAB 500 MG TAB PO PRN (09:31)
[2024-03-11] MEDS: MORPHINE SULFATE 2 MG/ML SYRINGE IVP STA (10:01)
--- NOTE | 2024-03-11 10:19 | P.HPOR ---
History of Present Illness H&P Date: 03/11/24 the patient is a very pleasant 63-year-old female with a medical history significant for alcohol dementia who presents to the ER after sustaining a ground-level fall in the shower last evening. The patient was brought to the emergency department where x-rays and a computed tomography scan showed a minimally displaced intertrochanteric hip fracture. At the time of my evaluation the patient is complaining of isolated left hip pain. She denies any other injuries and doesn't have any other sites of pain. At her baseline she lives in a facility and ambulates with assistive device. She has no other complaints. Past Medical History Past Medical History: CVA/TIA, Dementia, Hypertension, Seizure Disorder Additional Past Medical History / Comment(s): RECTAL PROLAPSE. Uses w/c, able to stand to transfer, incontinent,alcohol induced dementia, CVA without residual, last seizure unknown, UTI hypothyroidism, History of Any Multi-Drug Resistant Organisms: Unobtainable Past Surgical History: Unable to Obtain Additional Past Surgical History / Comment(s): PAIN CLINIC PROCEDURE -04/25/19. UNABLE TO OBTAIN PAST SURGICAL HX Past Anesthesia/Blood Transfusion Reactions: Unable to Obtain Additional Past Anesthesia/Blood Transfusion Reaction / Comment(s): unknown anesthesia hx Past Psychological History: Anxiety, Depression Smoking Status: Never smoker Past Alcohol Use History: None Reported, Abuse Past Drug Use History: None Reported - Past Family History Father Family Medical History: Unable to Obtain Mother Family Medical History: Unable to Obtain Medications and Allergies Home Medications Medication Instructions Recorded Confirmed Type Levothyroxine Sodium [Synthroid] 100 mcg PO DAILY@0500 05/21/16 03/11/24 History Sertraline HCl [Zoloft] 150 mg PO DAILY 04/20/19 03/11/24 History lisinopriL [Zestril] 5 mg PO HS 05/11/20 03/11/24 History levETIRAcetam [Keppra] 750 mg PO BID@0700,1600 05/12/20 03/11/24 History Acetaminophen Tab [Tylenol Tab] 500 mg PO Q8H PRN 03/11/24 03/11/24 History Atorvastatin [Lipitor] 20 mg PO HS 03/11/24 03/11/24 History Divalproex Sodium [Depakote] 125 mg PO BID 03/11/24 03/11/24 History LORazepam [Ativan] 0.5 mg PO BID 03/11/24 03/11/24 History amLODIPine [Norvasc] 5 mg PO HS 03/11/24 03/11/24 History Allergies Allergy/AdvReac Type Severity Reaction Status Date / Time No Known Allergies Allergy Verified 03/11/24 09:15 Physical Examination the patient is resting comfortably on a hospital gurney. She is alert and able to answer questions. Her head is normocephalic and atraumatic. She demonstrates nonlabored breathing with symmetric chest expansion. Her abdomen is soft and nonobese. Her cervical spine is nontender. She has no obvious deformities of the upper extremities. There are no obvious deformities and no tenderness over the right lower extremity. A focused exam of the left lower extremity was conducted. On inspection the left leg is shortened and externally rotated. There are no open wounds or skin lesions over the hip. She has pain with logroll of the left leg. Her knee and ankle are nontender. Her thigh and calf are soft. She is able to actively plantarflex and dorsiflex her ankle and her toes. Results x-rays of the pelvis and left hip show no obvious fractures. There is a healed right superior and inferior pubic rami fracture. Computed tomography scan of the left hip shows a minimally displaced intertrochanteric hip fracture. - Labs Labs: Abnormal Lab Results - Last 24 Hours (Table) 03/11/24 03/11/24 Range/Units 07:31 07:31 WBC 10.8 H (3.8-10.6) k/uL Neutrophils # 8.8 H (1.3-7.7) k/uL Sodium 134 L (137-145) mmol/L Creatinine 0.50 L (0.52-1.04) mg/dL Glucose 106 H (74-99) mg/dL H & H 03/11/24 Range/Units 07:31 Hgb 13.0 (11.4-16.0) gm/dL Hct 40.3 (34.0-46.0) % Coagulation 03/11/24 Range/Units 07:31 INR 0.9 (<1.2) Result Diagrams: 03/11/24 07:31 03/11/24 07:31 Assessment and Plan Assessment: left minimally displaced intertrochanteric hip fracture Alcohol-induced dementia Plan: The patient has a minimally displaced left intertrochanteric hip fracture. My recommendation is to stabilize the fracture with a short intramedullary hip screw to facilitate healing and early mobilization. The patient's guardian has been contacted and has provided their consent to proceed with surgery. Internal medicine has been consulted for preoperative clearance. I briefly discussed the potential risks and complications with the patient. She is to remain nothing by mouth and on strict bedrest until surgery. We will plan on surgery later this afternoon pending medical clearance. Time with Patient: Greater than 30
--- NOTE | 2024-03-11 14:23 | P.CONS ---
History of Present Illness - History of Present Illness This is a pleasant 63 years old female with past medical history of multiple medical problems as below. Her chronic problems including hyperlipidemia hypertension depression TIA/CVA and dementia most likely is vascular dementia given her history of stroke. Patient has a guardian. Patient presents to emergency room secondary to fall and landed on her left hip with no evidence of head trauma. Patient presents with left hip fracture and medical consult was requested for ev aluation and preop evaluation. Patient currently lying in bed in some distress due to pain in her left hip area, she wants to be fixed. She denies chest pain or dyspnea. She denies abdominal pain vomiting or diarrhea. No dysuria. Actually she has a Seay catheter in place. She is mildly confused which looks like her baseline she knows she is in the hospital but she could not tell which hospital the date or the time. Also it looks like her insight is partial but she follows command. She could move other extremities symmetrically and normally other than the left lower extremity which is limited with pain. Meningeal signs absent. Patient denies dyspnea and there is no wheezing and good air entry on both sides. Hemodynamically she is stable. Heart rate was low but on the low side 52-59, currently is not within the reference range is 64 She has mild leukocytosis 10.8. Rest of labs are unremarkable including CBC BMP INR and liver enzymes EKG showing sinus bradycardia at [address]-T changes Pelvic CT showing left proximal femoral intertrochanteric fracture with minimal displacement. Patient continued on home medication of Norvasc, Keppra and morphine Review of Systems Review of systems CONSTITUTIONAL: No fever, no malaise, no fatigue. HEENT: No recent visual problems or hearing problems. Denied any sore throat. CARDIOVASCULAR: No orthopnea, PND, no palpitations, no syncope. PULMONARY: No shortness of breath, no cough, no hemoptysis. GASTROINTESTINAL: No diarrhea, no nausea, no vomiting, no abdominal pain. Normoactive bowel sounds. NEUROLOGICAL: No headaches, no weakness, no numbness. HEMATOLOGICAL: Denies any bleeding or petechiae. GENITOURINARY: Denies any burning micturition, frequency, or urgency. MUSCULOSKELETAL/RHEUMATOLOGICAL: Denies any joint pain, swelling, or any muscle pain. ENDOCRINE: Denies any polyuria or polydipsia. Past Medical History Past Medical History: CVA/TIA, Dementia, Hypertension, Seizure Disorder Additional Past Medical History / Comment(s): RECTAL PROLAPSE. Uses w/c, able to stand to transfer, incontinent,alcohol induced dementia, CVA without residual, last seizure unknown, UTI hypothyroidism, History of Any Multi-Drug Resistant Organisms: Unobtainable Past Surgical History: Unable to Obtain Additional Past Surgical History / Comment(s): PAIN CLINIC PROCEDURE -04/25/19. UNABLE TO OBTAIN PAST SURGICAL HX Past Anesthesia/Blood Transfusion Reactions: Unable to Obtain Additional Past Anesthesia/Blood Transfusion Reaction / Comm: unknown anesthesia hx Past Psychological History: Anxiety, Depression Smoking Status: Never smoker Past Alcohol Use History: None Reported, Abuse Past Drug Use History: None Reported - Past Family History Father Family Medical History: Unable to Obtain Mother Family Medical History: Unable to Obtain Medications and Allergies Home Medications Medication Instructions Recorded Confirmed Type Levothyroxine Sodium [Synthroid] 100 mcg PO DAILY@0500 05/21/16 03/11/24 History Sertraline HCl [Zoloft] 150 mg PO DAILY 04/20/19 03/11/24 History lisinopriL [Zestril] 5 mg PO HS 05/11/20 03/11/24 History levETIRAcetam [Keppra] 750 mg PO BID@0700,1600 05/12/20 03/11/24 History Acetaminophen Tab [Tylenol Tab] 500 mg PO Q8H PRN 03/11/24 03/11/24 History Atorvastatin [Lipitor] 20 mg PO HS 03/11/24 03/11/24 History Divalproex Sodium [Depakote] 125 mg PO BID 03/11/24 03/11/24 History LORazepam [Ativan] 0.5 mg PO BID 03/11/24 03/11/24 History amLODIPine [Norvasc] 5 mg PO HS 03/11/24 03/11/24 History Allergies Allergy/AdvReac Type Severity Reaction Status Date / Time No Known Allergies Allergy Verified 03/11/24 09:15 Physical Exam Vitals: Vital Signs Temp Pulse Resp BP Pulse Ox 03/11/24 13:07 58 L 14 132/75 99 03/11/24 12:02 52 L 14 132/72 99 03/11/24 10:08 59 L 14 135/76 98 03/11/24 08:00 97.9 F 60 16 125/68 100 03/11/24 06:49 98.3 F 61 16 132/79 100 Intake and Output 03/10/24 03/11/24 03/11/24 22:59 06:59 14:59 Output Total 750 Balance -750 Output: Urine 750 Other: Weight 61.235 kg -GENERAL: The patient is alert and oriented x1 partially, not in any acute distress. Well developed, well nourished. HEENT: Pupils are round and equally reacting to light. EOMI. No scleral icterus. No conjunctival pallor. Normocephalic, atraumatic. No pharyngeal erythema. No thyromegaly. CARDIOVASCULAR: S1 and S2 present. No murmurs, rubs, or gallops. PULMONARY: Chest is clear to auscultation, no wheezing , no crackles. ABDOMEN: Soft, nontender, nondistended, normoactive bowel sounds. No palpable organomegaly. -MUSCULOSKELETAL: No joint swelling or deformity. Left hip area tenderness with minimally shortened limb and rotated EXTREMITIES: No cyanosis, clubbing, or pedal edema. NEUROLOGICAL: Gross neurological examination did not reveal any focal deficits. SKIN: No rashes. no petechiae. Results CBC & Chem 7: 03/11/24 07:31 03/11/24 07:31 Labs: Abnormal Lab Results - Last 24 Hours (Table) 03/11/24 03/11/24 Range/Units 07:31 07:31 WBC 10.8 H (3.8-10.6) k/uL Neutrophils # 8.8 H (1.3-7.7) k/uL Sodium 134 L (137-145) mmol/L Creatinine 0.50 L (0.52-1.04) mg/dL Glucose 106 H (74-99) mg/dL Assessment and Plan Assessment: Fall without syncope eft proximal femoral intertrochanteric fracture with minimal displacement. Sinus bradycardia, mild asymptomatic Hypothyroidism Hypertension Hyperlipidemia Seizure disorder Vascular dementia History of CVA/TIA Plan: Continue with seizure medication Continue with antihypertensive medication Patient evaluated by surgery team/orthopedic team and plan for ( short intramedullary hip screw to facilitate healing and early mobilization). Patient has a guardian who signed the consent for surgery per staff From medical perspective there is no contraindication to proceed with surgery. Patient still be at risk from surgery however within benefits more than risk DVT and GI prophylaxis Prognosis is guarded Thank you for consulting us Discussed with staff
[2024-03-11] MEDS: LACTATED RINGERS 1,000 ML IV SCH ×2 (15:34→18:29)
[2024-03-11] MEDS ORDERED: TRANEXAMIC 1,000 MG/100ML-NACL 1,000 MG in SALINE 1 100ML.BAG IVPB PRN (15:40)
[2024-03-11] MEDS: FAMOTIDINE 20 MG/2 ML VIAL IV STA (15:41)
[2024-03-11] MEDS: ONDANSETRON 4 MG/2 ML VIAL IVP STA (15:41)
[2024-03-11] MEDS: DEXAMETHASONE SOD PHOSPHATE 4 MG/ML 1 ML VIAL IVP STA (15:42)
[2024-03-11] MEDS ORDERED: LIDOCAINE 1% INJ 10MG/ML (20 ML MDV) ONE (16:11)
[2024-03-11] MEDS ORDERED: WATER FOR INJECTION, STERILE 10 ML VIAL IV ONE (16:11)
[2024-03-11] MEDS ORDERED: TRANEXAMIC 1,000 MG/100ML-NACL PREMIX BAG ONE (16:11)
[2024-03-11] MEDS ORDERED: HYDROmorphone (PF) 1 MG/ML ONE (16:11)
[2024-03-11] MEDS ORDERED: fentaNYL (PF) 50 MCG/ML 2 ML AMP ONE (16:11)
[2024-03-11] MEDS ORDERED: PROPOFOL 10 MG/ML 20 ML VIAL IV ONE (16:11)
[2024-03-11] MEDS ORDERED: ePHEDrine 50 MG/ML 1 ML VIAL ONE (16:11)
--- NOTE | 2024-03-11 17:21 | P.OP ---
Date of Procedure: 03/11/24 Preoperative Diagnosis: 1. left intertrochanteric hip fracture 2. Alcohol-induced dementia Postoperative Diagnosis: same Procedure(s) Performed: operative fixation of left intertrochanteric hip fracture with short intramedullary hip screw Implants: [place] gamma nail 180x11, 90 mm lag screw, 37.5 mm distal interlocking screw Anesthesia: SONY Surgeon: Сергей Chahal Time Analysis Clerk #1: Maximus Ferguson Estimated Blood Loss (ml): 100 IV fluids (ml): 800 Pathology: none sent Condition: stable Disposition: PACU Indications for Procedure: I met with the patient and their family preoperatively to discuss their injury and treatment options. They have an extra-capsular, intertrochanteric hip fracture and my recommendation was to stabilize the fracture with an intramedullary hip screw to facilitate early mobilization. We discussed the potential risks and complications of this surgical procedure including but certainly not limited to risks from anesthesia, superficial infection, deep infection, fracture nonunion, fracture malunion, hardware failure including broken hardware, varus collapse with lag screw cut out of the femoral head, progression of hip arthritis, limb length discrepancy, symptomatic hardware, need for further surgery including hardware removal and conversion to arthroplasty, DVT, PE, acute coronary event, pressure ulcers, urinary tract infection, failure to thrive, an inability to regain preinjury level of function, and possibly . The patient and their family understand these potential complications and also awknowledge that other less common complications are possible. They provided both their verbal and written consent to go forward with operative fixation of their hip fracture with an intramedullary hip screw. Description of Procedure: The patient was identified in preoperative holding and the correct operative extremity was marked with my initials. I reviewed the consent form with the patient and their family and all of their questions were answered. The patient was then brought back to the operating room by anesthesia. Anesthesia, preoperative antibiotics, and tranexamic acid were given by the anesthesia team while on the [facility]. Both ankles were padded with webril and boots for the [place] table were applied. The patient was then carefully transferred onto the [place] table. A perineal post was immediately placed. The contralateral arm was secured on a well-padded arm rojas. The ipsilateral arm was draped across the chest and secured with a pillow, foam, and paper tape to allow access to the proximal femur. Nonsterile drapes were applied to the operative extremity. The height of the table was elevated and the contralateral extremity was dropped towards the floor to facilitate imaging. A timeout was performed identifying the correct patient, operative extremity, and procedure. Fluoroscopy was brought in to assess the fracture. A provisional reduction was performed using longitudinal traction, adduction, and internal rotation. An AP and lateral view were obtained to assess the reduction. The operative extremity was then prepped and draped in the standard sterile fashion. A straight incision was made at the tip of the greater trochanter and extended proximally for 3 cm. Skin and subcutaneous tissues were incised sharply. The underlying fascia was incised in line with the skin incision. An awl was placed just medial to the tip of the greater trochanter on the AP view and colinear with the canal on the lateral view. A 3.2 mm guide pin was then advanced into the proximal femur. The position of the guidepin was verified with fluoroscopy. An opening reamer and soft tissue cannula were placed over the guidepin and used to open the proximal femur to the level of the lesser trochanter. The 3.2 mm guide pin and opening reamer were removed. A short gamma nail was dispensed, hooked up to the targeting arm and I verified that the trochar through the targeting arm lined up with the slots on the nail. The nail was then impacted into the proximal femur until the appropriate depth had been reached. A small stab incision was made over the lateral aspect of the femur using the targeting arm as a reference for the lag screw. Incision was carried down to the skin and fascia down to the lateral cortex of the femur. The trocar was then placed up to the lateral cortex of the femur and a guidepin was placed in the low center position on the AP view and centered in the femoral head on the lateral view. Once the position of the guidewire was verified, we reamed to appropriate depth and placed a lag screw over the guidewire and into the femoral head. The position of the lag screw was assessed with fluoroscopy. The guidewire was then removed from the femoral head. The set screw was placed proximally, brought fully down and then released a quarter turn to allow compression. A final stab incision was made over the lateral femur at the site of the distal interlocking screw, again using the targeting arm as a reference. The trocar and sleeve were placed to the lateral cortex of the femur. We then drilled and placed a distal interlocking screw. Final fluoroscopic images were taken showing excellent reduction of the fracture and appropriate position of the implants. All wounds were thoroughly irrigated and closed in layers. Sterile dressings were applied. The drapes were taken down, the patient was transferred off the [place] table, and was brought to recovery having tolerated the procedure well. Maximus Ferguson PA-C was required as a skilled publisher assistant due to the complexity of surgery for patient positioning, draping, retraction, reduction of fracture, placement of hardware, closure of wounds, and application of dressings. PLAN: The patient can weight-bear as tolerated on their operative extremity. 2 doses of postoperative antibiotics. DVT prophylaxis with aspirin 81 mg twice a day starting the day of surgery. Dressing change on postoperative day #2. Appreciate Internal Medical assistance with perioperative medical management. Discharge planning in process.
[2024-03-11] MEDS ORDERED: HYDROmorphone 1 MG/ML 1 ML SYRINGE IVP PRN (17:29)
[2024-03-11] MEDS ORDERED: HYDROmorphone 0.5 MG/0.5 ML SYRINGE IVP PRN (17:29)
[2024-03-11] MEDS: IV FLUID CONTINUATION 1,000 ML IV ONE (17:55)
--- NOTE | 2024-03-11 19:26 | XR ---
EXAMINATION TYPE: XR Hip Complete LT, 4 views DATE OF EXAM: 03/11/2024 COMPARISON: NONE HISTORY: 63 year-old female left hip gamma nail FINDINGS: Left hip gamma nail 46 sec fl .8917 Gycm2 DAP 4 images provided. IMPRESSION: Intraoperative fluoroscopy as above.
[2024-03-11 20:04] LABS: Basophils % (A) 0 %; Eosinophils # (A) 0.1 k/uL (0-0.7); Eosinophils % (A) 1 %; HCT 39.5 % (34.0-46.0); Lymphocytes # (A) 0.9 k/uL (1.0-4.8); Lymphocytes % (A) 7 %; MCH 31.8 pg (25.0-35.0); MCHC 32.8 g/dL (31.0-37.0); MCV 96.9 fL (80.0-100.0); Mean Platelet Volume 8.1; Monocytes # (A) 0.4 k/uL (0-1.0); Monocytes % (A) 4 %; Neutrophils # (A) 10.4 k/uL (1.3-7.7); Neutrophils % (A) 88 %; Platelet Count 114 k/uL (150-450); RBC 4.08 m/uL (3.80-5.40); RDW 11.9 % (11.5-15.5); WBC 11.9 k/uL (3.8-10.6)
[2024-03-11] MEDS ORDERED: DIVALPROEX SODIUM 125 MG PO SCH (21:00)
[2024-03-11] MEDS: DIVALPROEX SPRINKLE 125 MG CAP.SPRINK PO SCH (22:21)
[2024-03-11] MEDS: amLODIPine 5 MG TAB PO SCH (22:22)
[2024-03-11] MEDS: LORazepam 0.5 MG TAB PO SCH (22:22)
[2024-03-11] MEDS: ATORVASTATIN 20 MG TAB PO SCH (22:22)
[2024-03-11] MEDS: lisinopriL 5 MG TAB PO SCH (22:22)
[2024-03-11] MEDS: ASPIRIN 81 MG PO SCH (22:22)
[2024-03-11] MEDS: FAMOTIDINE 20 MG/2 ML VIAL IV SCH (22:22)
[2024-03-12 03:22] LABS: Appearance,Urine Clear (Clear); Bacteria,Urine Rare /hpf; Bilirubin,Urine Negative (Negative); Blood,Urine Negative (Negative); Color,Urine Colorless; Glucose,Urine (UA) Negative (Negative); Ketones,Urine Negative (Negative); Leukocyte Esterase,Urine Moderate (Negative); Mucus,Urine Rare /hpf; Nitrite,Urine Negative (Negative); PH, Urine 6.5 (5.0-8.0); Protein,Urine Negative (Negative); RBC,Urine 1 /hpf (0-5); Urobilinogen,Urine <2.0 mg/dL (<2.0); WBC,Urine 9 /hpf (0-5)
[2024-03-12] MEDS: HYDROcodone/APAP 10-325MG 1 EACH TAB PO PRN (06:17)
[2024-03-12] MEDS: LEVOTHYROXINE 100 MCG TAB PO SCH (06:17)
[2024-03-12] MEDS: SERTRALINE 50 MG TAB PO SCH (08:17)
--- NOTE | 2024-03-12 10:52 | FL ---
EXAMINATION TYPE: FL guidance operating room DATE OF EXAM: 03/11/2024 Comparison: None Clinical History: 63-year-old female LEFT HIP GAMMA NAIL Findings: Left hip gamma nail 46 sec fl .8917 Gycm2 DAP No images provided
--- NOTE | 2024-03-12 12:23 | P.PN ---
Progress Note - Text Progress Note Date: 03/12/24 Orthopedics: History of present illness: Patient is a very pleasant 63-year-old female with dementia who is status post left hip gamma nail fixation with short intramedullary hip screw for left intertrochanteric hip fracture. She is sitting at the bedside in a chair. She is comfortable. She is pleasant. She is not experiencing any significant pain at her left hip. She has been able to ambulate with the assistance of physical therapy with a walker. Her Seay catheter is currently intact and is planned to be discontinued today. She has no complaints. She is currently planning for discharge to a rehabilitation facility this coming 03/14/2024. She continues to be seen and examined by medicine. Patient's other medical history includes hypertension, dementia, history of CVA/TIA, and seizure disorder. Physical Exam Intramedullary [place] for Intertrochanteric Fracture: Status post surgical day number 1 Patient is examined sitting in a bedside chair Patient is awake and and alert with dementia Vital signs stable Good chest excursion with deep inspiration and expiration No signs or symptoms of DVT; no calf pain Lower extremity cuffs in place bilaterally Dressing of the left hip is clean, dry, and intact; no erythema, purulence, or signs of infection No pain with palpation over the surgical sites of the left hip Dorsiflexion, plantarflexion, and extensor hallucis longus positive sustained on the left Neurovascularly intact bilateral lower extremities Assessment: Status post left gamma nail short intramedullary nail fixation for left intertrochanteric hip fracture Status post fall Left hip pain Dementia History of CVA/TIA Seizures Hypertension Plan: 1. Patient to remain weightbearing with the assistance of a walker on the left lower extremity; patient may work with physical therapy to increase mobility and ambulation 2. Keep dressing over the left hip clean, dry, and intact 3. Discontinue Seay catheter when patient is able to increase mobility and ambulation; plan to discontinue Seay catheter this morning 4. Continue pain control with oral Salkum and IV Dilaudid as needed for pain control 5. Continue with anticoagulation therapy with aspirin 81 mg twice a day 6. Medicine to continue following the patient for their other medical diagnosis including hypertension, dementia, and history of CVA/TIA. 7. We'll continue to follow the patient closely; patient is currently planning for discharge to a rehabilitation facility this coming 03/14/2024, if cleared by medicine and approved by insurance 8. Patient can follow-up with Dr. Matthew Chahal at [facility] in 2-3 weeks following discharge
--- NOTE | 2024-03-12 22:00 | P.PN ---
Subjective This is a pleasant 63 years old female with past medical history of multiple medical problems as below. Her chronic problems including hyperlipidemia hypertension depression TIA/CVA and dementia most likely is vascular dementia given her history of stroke. Patient has a guardian. Patient presents to emergency room secondary to fall and landed on her left hip with no evidence of head trauma. Patient presents with left hip fracture and medical consult was requested for evaluation and preop evaluation. Patient currently lying in bed in some distress due to pain in her left hip area, she wants to be fixed. She denies chest pain or dyspnea. She denies abdominal pain vomiting or diarrhea. No dysuria. Actually she has a Seay catheter in place. She is mildly confused which looks like her baseline she knows she is in the hospital but she could not tell which hospital the date or the time. Also it looks like her insight is partial but she follows command. She could move other extremities symmetrically and normally other than the left lower extremity which is limited with pain. Meningeal signs absent. Patient denies dyspnea and there is no wheezing and good air entry on both sides. Hemodynamically she is stable. Heart rate was low but on the low side 52-59, currently is not within the reference range is 64 She has mild leukocytosis 10.8. Rest of labs are unremarkable including CBC BMP INR and liver enzymes EKG showing sinus bradycardia at [address]-T changes Pelvic CT showing left proximal femoral intertrochanteric fracture with minimal displacement. Patient continued on home medication of Norvasc, Keppra and morphine 03/12/2024 Patient is s/p operative fixation of left intertrochanteric hip fracture with short intramedullary hip screw. Today is postop day #1 She is doing well, she is sitting in chair pleasant enjoying her food not in pain or any other distress or complaint Vitals are stable labs and imaging reviewed Patient medically stable [facility] be [facility] This discussed with primary team Objective - Vital Signs Vital signs: Vital Signs Temp 99.2 F 03/12/24 20:00 Pulse 83 03/12/24 20:00 Resp 12 03/12/24 20:00 BP 93/62 03/12/24 20:00 Pulse Ox 97 03/12/24 20:00 FiO2 Intake & Output 03/12/24 03/12/24 03/13/24 06:59 18:59 06:59 Output Total 1000 200 Balance -1000 -200 Output: Urine 1000 200 Other: Voiding Method Indwelling Catheter Indwelling Catheter - Exam GENERAL: The patient is alert and oriented x3, not in any acute distress. Well developed, well nourished. HEENT: Pupils are round and equally reacting to light. EOMI. No scleral icterus. No conjunctival pallor. Normocephalic, atraumatic. No pharyngeal erythema. No thyromegaly. CARDIOVASCULAR: S1 and S2 present. No murmurs, rubs, or gallops. PULMONARY: Chest is clear to auscultation, no wheezing , no crackles. ABDOMEN: Soft, nontender, nondistended, normoactive bowel sounds. No palpable organomegaly. MUSCULOSKELETAL: No joint swelling or deformity. -EXTREMITIES: No cyanosis, clubbing, or pedal edema. Left leg surgical wound is closed and healing NEUROLOGICAL: Gross neurological examination did not reveal any focal deficits. SKIN: No rashes. no petechiae. - Labs CBC & Chem 7: 03/11/24 19:45 03/11/24 07:31 Labs: Abnormal Lab Results - Last 24 Hours (Table) 03/12/24 Range/Units 02:30 Ur Leukocyte Esterase Moderate H (Negative) Urine WBC 9 H (0-5) /hpf Urine Bacteria Rare H (None) /hpf Urine Mucus Rare H (None) /hpf Assessment and Plan Assessment: Fall without syncope Left proximal femoral intertrochanteric fracture with minimal displaLcement. s/p operative fixation of left intertrochanteric hip fracture with short intramedullary hip screw Sinus bradycardia, mild asymptomatic Hypothyroidism Hypertension Hyperlipidemia Seizure disorder Vascular dementia History of CVA/TIA Plan: Continue with seizure medication Continue with antihypertensive medication Patient evaluated by surgery team/orthopedic team Patient is clinically stable From medical perspective there is no contraindication to proceed with surgery. Patient still be at risk from surgery however within benefits more than risk DVT and GI prophylaxis Prognosis is guarded Thank you for consulting us Discussed with staff
--- NOTE | 2024-03-13 10:04 | P.PN ---
Subjective Patient is doing well this morning. She is confused but this is her baseline. She forgot that she had surgery on her left hip. She has some discomfort in her hip but most of her pain this morning is in the left ankle. Objective - Vital Signs Vital signs: Vital Signs Temp 98.2 F 03/13/24 08:10 Pulse 83 03/13/24 08:10 Resp 18 03/13/24 08:10 BP 126/79 03/13/24 08:10 Pulse Ox 93 L 03/13/24 08:10 FiO2 Intake & Output 03/12/24 03/13/24 03/13/24 18:59 06:59 18:59 Output Total 200 500 Balance -200 -500 Output: Urine 200 500 Uretheral (Seay) 500 Other: Voiding Method Indwelling Catheter - Exam Patient is awake and able to answer questions but is confused. The dressings over the lateral aspect of her left hip are intact with no drainage or strike through. Her thigh is soft. She has minimal pain with passive range of motion of the hip. She is able to actively plantarflex and dorsiflex her ankle and her toes. On inspection of the left ankle there are healed surgical incisions over the malleoli. She is mildly tender over the lateral malleolus. There is palpab le hardware through the skin but no open wounds. - Labs CBC & Chem 7: 03/11/24 19:45 03/11/24 07:31 Assessment and Plan Assessment: Postoperative day 2 status post left hip gamma nail Left ankle pain Alcohol-induced dementia Plan: Continue treatment as outlined yesterday. We'll check x-rays of the left ankle. Discharge planning in process, likely in the next 1-2 days.
[2024-03-13] MEDS: ERGOCALCIFEROL 1,250 MCG (50,000 IU) CAPSULE PO SCH (13:07)
[2024-03-13 17:30] LABS: Basophils % (A) 0 %; Eosinophils # (A) 0.2 k/uL (0-0.7); Eosinophils % (A) 2 %; HCT 32.9 % (34.0-46.0); HGB 10.9 gm/dL (11.4-16.0); Lymphocytes # (A) 1.9 k/uL (1.0-4.8); Lymphocytes % (A) 20 %; MCH 31.3 pg (25.0-35.0); Mean Platelet Volume 8.5; Monocytes # (A) 0.6 k/uL (0-1.0); Monocytes % (A) 6 %; Neutrophils # (A) 6.4 k/uL (1.3-7.7); Neutrophils % (A) 70 %; Platelet Count 123 k/uL (150-450); RBC 3.47 m/uL (3.80-5.40); RDW 12.3 % (11.5-15.5); WBC 9.1 k/uL (3.8-10.6)
[2024-03-13] MEDS: HYDROcodone/APAP 5-325MG 1 EACH TAB PO PRN (20:30)
--- NOTE | 2024-03-13 21:33 | P.PN ---
Subjective This is a pleasant 63 years old female with past medical history of multiple medical problems as below. Her chronic problems including hyperlipidemia hypertension depression TIA/CVA and dementia most likely is vascular dementia given her history of stroke. Patient has a guardian. Patient presents to emergency room secondary to fall and landed on her left hip with no evidence of head trauma. Patient presents with left hip fracture and medical consult was requested for evaluation and preop evaluation. Patient currently lying in bed in some distress due to pain in her left hip area, she wants to be fixed. She denies chest pain or dyspnea. She denies abdominal pain vomiting or diarrhea. No dysuria. Actually she has a Seay catheter in place. She is mildly confused which looks like her baseline she knows she is in the hospital but she could not tell which hospital the date or the time. Also it looks like her insight is partial but she follows command. She could move other extremities symmetrically and normally other than the left lower extremity which is limited with pain. Meningeal signs absent. Patient denies dyspnea and there is no wheezing and good air entry on both sides. Hemodynamically she is stable. Heart rate was low but on the low side 52-59, currently is not within the reference range is 64 She has mild leukocytosis 10.8. Rest of labs are unremarkable including CBC BMP INR and liver enzymes EKG showing sinus bradycardia at [address]-T changes Pelvic CT showing left proximal femoral intertrochanteric fracture with minimal displacement. Patient continued on home medication of Norvasc, Keppra and morphine 03/12/2024 Patient is s/p operative fixation of left intertrochanteric hip fracture with short intramedullary hip screw. Today is postop day #1 She is doing well, she is sitting in chair pleasant enjoying her food not in pain or any other distress or complaint Vitals are stable labs and imaging reviewed Patient medically stable May be considered for discharge back to [facility] on Thursday. This discussed with primary team 03/13/2024 Patient is a pleasant She is sitting up in bed with good energy good alertness she is smiling No complaints Vitamin D been replaced Possible discharge in 24 to 48 hours Objective - Vital Signs Vital signs: Vital Signs Temp 98.7 F 03/13/24 12:58 Pulse 84 03/13/24 12:58 Resp 16 03/13/24 12:58 BP 114/75 03/13/24 12:58 Pulse Ox 98 03/13/24 12:58 FiO2 Intake & Output 03/12/24 03/13/24 03/13/24 18:59 06:59 18:59 Output Total 200 500 Balance -200 -500 Output: Urine 200 500 Uretheral (Seay) 500 Other: Voiding Method Indwelling Catheter # Voids 3 # Bowel Movements 1 - Exam GENERAL: The patient is alert and oriented x3, not in any acute distress. Well d eveloped, well nourished. HEENT: Pupils are round and equally reacting to light. EOMI. No scleral icterus. No conjunctival pallor. Normocephalic, atraumatic. No pharyngeal erythema. No thyromegaly. CARDIOVASCULAR: S1 and S2 present. No murmurs, rubs, or gallops. PULMONARY: Chest is clear to auscultation, no wheezing , no crackles. ABDOMEN: Soft, nontender, nondistended, normoactive bowel sounds. No palpable organomegaly. MUSCULOSKELETAL: No joint swelling or deformity. -EXTREMITIES: No cyanosis, clubbing, or pedal edema. Left leg surgical wound is closed and healing NEUROLOGICAL: Gross neurological examination did not reveal any focal deficits. SKIN: No rashes. no petechiae. - Labs CBC & Chem 7: 03/13/24 17:06 03/11/24 07:31 Labs: Abnormal Lab Results - Last 24 Hours (Table) 03/12/24 03/13/24 Range/Units 13:20 17:06 RBC 3.47 L (3.80-5.40) m/uL Hgb 10.9 L (11.4-16.0) gm/dL Hct 32.9 L (34.0-46.0) % Plt Count 123 L (150-450) k/uL Vitamin D 25-Hydroxy 13.1 L (30.0-100.0) ng/mL Assessment and Plan Assessment: Fall without syncope Left proximal femoral intertrochanteric fracture with minimal displaLcement. s/p operative fixation of left intertrochanteric hip fracture with short intramedullary hip screw Sinus bradycardia, mild asymptomatic Hypothyroidism Hypertension Hyperlipidemia Seizure disorder Vascular dementia History of CVA/TIA Plan: Continue with vitamin D replacement therapy Continue with seizure medication Continue with antihypertensive medication Patient evaluated by surgery team/orthopedic team Patient is clinically stable DVT and GI prophylaxis Prognosis is guarded Thank you for consulting us Discussed with staff
--- NOTE | 2024-03-14 07:12 | XR ---
EXAMINATION TYPE: XR ankle complete LT DATE OF EXAM: 03/13/2024 11:02 AM CLINICAL INDICATION:Female, 63 years old with history of pain, h/o fall; [facility] COMPARISON: None TECHNIQUE: The left ankle is imaged in frontal, lateral and oblique projections. FINDINGS: Osseous mineralization is significantly reduced. There is side plate and multiple screw fixation of t he distal tibia and distal fibula, apparently for remote healed fractures. These findings limit asses sment for acute process, but no acute fracture lucency or dislocation is observed. Ankle mortise appe ars diffusely narrowed. Talar dome appears to be intact. There seems to be some soft tissue swelling about the ankle. If there is persistent clinical concern, CT may be considered. IMPRESSION: As above.
--- NOTE | 2024-03-14 08:14 | P.DS ---
Providers Date of admission: 03/11/24 09:04 Attending physician: Сергей Chahal Consults: 03/11/24 09:29 Consult Physician Urgent Consulting Provider: Francisco Champion Reason/Comments: Medical management, surgical clearance Do you want consulting provider notified?: Yes Primary care physician: Yesenia Rocha, DO - Discharge Diagnosis(es) (1) Fracture, intertrochanteric, left femur Current Visit: Yes Status: Acute Hospital Course: The patient is a very pleasant 63-year-old female with a medical history significant for alcohol dementia who presented to the ER on 03/11/2024 after sustaining a ground-level fall in the shower. At her baseline she lives in a facility and ambulates with assistive device. The patient was brought to the emergency department where x-rays and a computed tomography scan showed a minimally displaced left intertrochanteric hip fracture. On 03/11/2024 the patient had an operative fixation of left intertrochanteric hip fracture with short intramedullary hip screw. They tolerated the procedure well. They were followed by orthopedics and medicine. Today POD# 3 they were sitting up in bed eating breakfast. They denied pain in their left hip. Their dressings were intact. From an orthopedic standpoint they are ready to be transferred. Currently planning for discharge to a rehabilitation facility if cleared by medicine and approved by insurance. Assessment: Postoperative day 3 status post left hip gamma nail Alcohol-induced dementia Plan - Discharge Summary New Discharge Prescriptions: New Aspirin 81 mg PO BID #60 tab HYDROcodone/APAP 5-325MG [[place] 5-325] 1 - 2 tab PO Q6HR PRN #32 tab PRN Reason: Pain Cholecalciferol [Vitamin D3 (25 Mcg = 1000 Iu)] 50 mcg PO DAILY #90 tab Docusate [Colace] 100 mg PO BID #60 capsule Ergocalciferol [Vitamin D2 (1250 Mcg = 56720 Iu)] 1,250 mcg PO Q72H #30 capsule No Action Levothyroxine Sodium [Synthroid] 100 mcg PO DAILY@0500 Sertraline HCl [Zoloft] 150 mg PO DAILY lisinopriL [Zestril] 5 mg PO HS levETIRAcetam [Keppra] 750 mg PO BID@0700,1600 LORazepam [Ativan] 0.5 mg PO BID Divalproex Sodium [Depakote] 125 mg PO BID amLODIPine [Norvasc] 5 mg PO HS Atorvastatin [Lipitor] 20 mg PO HS Acetaminophen Tab [Tylenol Tab] 500 mg PO Q8H PRN PRN Reason: pain or headache Discharge Medication List Levothyroxine Sodium [Synthroid] 100 mcg PO DAILY@0500 05/21/16 [History] Sertraline HCl [Zoloft] 150 mg PO DAILY 04/20/19 [History] lisinopriL [Zestril] 5 mg PO HS 05/11/20 [History] levETIRAcetam [Keppra] 750 mg PO BID@0700,1600 05/12/20 [History] Acetaminophen Tab [Tylenol Tab] 500 mg PO Q8H PRN 03/11/24 [History] Aspirin 81 mg PO BID #60 tab 03/11/24 [Rx] Atorvastatin [Lipitor] 20 mg PO HS 03/11/24 [History] Divalproex Sodium [Depakote] 125 mg PO BID 03/11/24 [History] Docusate [Colace] 100 mg PO BID #60 capsule 03/11/24 [Rx] HYDROcodone/APAP 5-325MG [[place] 5-325] 1 - 2 tab PO Q6HR PRN #32 tab 03/11/24 [Rx] LORazepam [Ativan] 0.5 mg PO BID 03/11/24 [History] amLODIPine [Norvasc] 5 mg PO HS 03/11/24 [History] Cholecalciferol [Vitamin D3 (25 Mcg = 1000 Iu)] 50 mcg PO DAILY #90 tab 03/13/24 [Rx] Ergocalciferol [Vitamin D2 (1250 Mcg = 51365 Iu)] 1,250 mcg PO Q72H #30 capsule 03/13/24 [Rx] Follow up Appointment(s)/Referral(s): None,Stated [REFERRING] - 1-2 days Сергей Chahal MD [Medical Doctor] - 2 Weeks Patient Instructions/Handouts: Seizure/Epilepsy Discharge Instructions & Follow-Up Activity/Diet/Wound Care/Special Instructions: 1. Weight-bear as tolerated on your operative extremity unless instructed otherwise. Use a walker or other assistive device to ambulate. 2. Leave surgical dressing in place. If your dressing becomes saturated with blood, there is drainage, or the dressing becomes loose please contact the office. 3. It is okay to shower with your surgical dressing, but do not submerge in water (no hot tubs, bath's, swimming etc.) 4. Make sure to take her blood clot prevention medication as prescribed (aspirin, Eliquis, Xarelto, and Plavix are commonly prescribed medications for blood clot prevention) 5. While taking [place] or Percocet for pain make sure you're taking a stool softener (Colace) and drink lots of water. 6. Keep all follow-up appointments as scheduled. You will usually be seen in 1-2 weeks following surgery. 7. Please contact the office with any questions or concerns [phone] Discharge Disposition: TRANSFER TO SNF/ECF
[2024-03-14] MEDS: CHOLECALCIFEROL 25 MCG (1000 IU) TABLET PO SCH (08:31)
--- NOTE | 2024-03-14 10:15 | P.PN ---
Subjective This is a pleasant 63 years old female with past medical history of multiple medical problems as below. Her chronic problems including hyperlipidemia hypertension depression TIA/CVA and dementia most likely is vascular dementia given her history of stroke. Patient has a guardian. Patient presents to emergency room secondary to fall and landed on her left hip with no evidence of head trauma. Patient presents with left hip fracture and medical consult was requested for evaluation and preop evaluation. Patient currently lying in bed in some distress due to pain in her left hip area, she wants to be fixed. She denies chest pain or dyspnea. She denies abdominal pain vomiting or diarrhea. No dysuria. Actually she has a Seay catheter in place. She is mildly confused which looks like her baseline she knows she is in the hospital but she could not tell which hospital the date or the time. Also it looks like her insight is partial but she follows command. She could move other extremities symmetrically and normally other than the left lower extremity which is limited with pain. Meningeal signs absent. Patient denies dyspnea and there is no wheezing and good air entry on both sides. Hemodynamically she is stable. Heart rate was low but on the low side 52-59, currently is not within the reference range is 64 She has mild leukocytosis 10.8. Rest of labs are unremarkable including CBC BMP INR and liver enzymes EKG showing sinus bradycardia at [address]-T changes Pelvic CT showing left proximal femoral intertrochanteric fracture with minimal displacement. Patient continued on home medication of Norvasc, Keppra and morphine 03/12/2024 Patient is s/p operative fixation of left intertrochanteric hip fracture with short intramedullary hip screw. Today is postop day #1 She is doing well, she is sitting in chair pleasant enjoying her food not in pain or any other distress or complaint Vitals are stable labs and imaging reviewed Patient medically stable May be considered for discharge back to [facility] on Thursday. This discussed with primary team 03/13/2024 Patient is a pleasant She is sitting up in bed with good energy good alertness she is smiling No complaints Vitamin D been replaced Possible discharge in 24 to 48 hours 03/14/2024 Patient pleasant relaxed with no complaint sitting up in bed have some question about her discharges. No significant pain. She is saturating well on room air. She has good appetite. She is hemodynamically stable. Labs reviewed WBC back to normal at 9.1, hemoglobin 10.9. Which is at baseline, patient baseline hemoglobin is 7-9. Vitamin D on the low side and been replaced Patient looks medically stable Objective - Vital Signs Vital signs: Vital Signs Temp 98.0 F 03/14/24 07:06 Pulse 62 03/14/24 07:06 Resp 17 03/14/24 07:06 BP 130/77 03/14/24 07:06 Pulse Ox 98 03/14/24 07:06 FiO2 Intake & Output 03/13/24 03/14/24 03/14/24 18:59 06:59 18:59 Other: # Voids 3 2 # Bowel Movements 1 - Exam GENERAL: The patient is alert and oriented x3, not in any acute distress. Well developed, well nourished. HEENT: Pupils are round and equally reacting to light. EOMI. No scleral icterus. No conjunctival pallor. Normocephalic, atraumatic. No pharyngeal erythema. No thyromegaly. CARDIOVASCULAR: S1 and S2 present. No murmurs, rubs, or gallops. PULMONARY: Chest is clear to auscultation, no wheezing , no crackles. ABDOMEN: Soft, nontender, nondistended, normoactive bowel sounds. No palpable organomegaly. MUSCULOSKELETAL: No joint swelling or deformity. -EXTREMITIES: No cyanosis, clubbing, or pedal edema. Left leg surgical wound is closed and healing NEUROLOGICAL: Gross neurological examination did not reveal any focal deficits. SKIN: No rashes. no petechiae. - Labs CBC & Chem 7: 03/13/24 17:06 03/11/24 07:31 Labs: Abnormal Lab Results - Last 24 Hours (Table) 03/12/24 03/13/24 Range/Units 13:20 17:06 RBC 3.47 L (3.80-5.40) m/uL Hgb 10.9 L (11.4-16.0) gm/dL Hct 32.9 L (34.0-46.0) % Plt Count 123 L (150-450) k/uL Vitamin D 25-Hydroxy 13.1 L (30.0-100.0) ng/mL Assessment and Plan Assessment: Fall without syncope Left proximal femoral intertrochanteric fracture with minimal displaLcement. s/p operative fixation of left intertrochanteric hip fracture with short intramedullary hip screw Sinus bradycardia, mild asymptomatic Hypothyroidism Hypertension Hyperlipidemia Seizure disorder Vascular dementia History of CVA/TIA Plan: Continue with vitamin D replacement therapy Continue with seizure medication Continue with antihypertensive medication Patient evaluated by surgery team/orthopedic team Patient is clinically stable DVT and GI prophylaxis Patient multiple times. Patient is medically stable for discharge from medical perspective will recommend patient follow-up with PCP in 1 week after discharge. Patient.
[2024-03-14 14:03] VITALS: BP 118/73; PULSE 80; RESP 16; TEMP 97.9
== END 2024-03-14 14:39 | DRG 481 ==
LOC: EC 06:48 → 4SSUR 09:04
PROVIDERS: ADMIT Orthopaedic Surgery; ATTEND Orthopaedic Surgery
PROC: 0QS736Z Reposition Left Upper Femur with Intramedullary Internal Fixation Device, Percutaneous Approach (ICD-10-PCS; principal; 2024-03-11 09:50)
DX: S72.142A Displaced intertrochanteric fracture of left femur, initial encounter for closed fracture (principal); F01.53 Vascular dementia, unspecified severity, with mood disturbance; F10.27 Alcohol dependence with alcohol-induced persisting dementia; F01.54 Vascular dementia, unspecified severity, with anxiety; Y92.121 Bathroom in nursing home as the place of occurrence of the external cause; Z66 Do not resuscitate; W18.2XXA Fall in (into) shower or empty bathtub, initial encounter; Y93.E1 Activity, personal bathing and showering; M85.88 Other specified disorders of bone density and structure, other site; I10 Essential (primary) hypertension; E78.5 Hyperlipidemia, unspecified; F32.A Depression, unspecified; D72.829 Elevated white blood cell count, unspecified; G40.909 Epilepsy, unspecified, not intractable, without status epilepticus; R00.1 Bradycardia, unspecified; E03.9 Hypothyroidism, unspecified; Z86.73 Personal history of transient ischemic attack (TIA), and cerebral infarction without residual deficits; Z79.899 Other long term (current) drug therapy; Z79.890 Hormone replacement therapy; Z87.440 Personal history of urinary (tract) infections
CPT/HCPCS: 36415; 71046; 72192; 73502; 80053; 81001; 82306; 85025; 85610; 85730; 93005; 96374; 99285